=== PATIENT | male | born 1940 | race Caucasian/White ===

== ENCOUNTER 2016-07-17 20:35 | Inpatient (IN) | payer MEDICARE, OTHER ==
[2016-07-17] MEDS ORDERED: IPRATROPIUM-ALBUTEROL 3 ML NEB INHALATION STA (21:11)
[2016-07-17 21:32] LABS: Basophils % (A) 1 %; CH 30.9; CHCM 33.1; Eosinophils # (A) 0.2 k/uL (0-0.7); Eosinophils % (A) 3 %; HCT 43.9 % (39.0-53.0); HDW 3.04; HGB 14.3 gm/dL (13.0-17.5); Luc # (Auto) 0.23; Luc % (Auto) 3; Lymphocytes # (A) 1.4 k/uL (1.0-4.8); Lymphocytes % (A) 18 %; MCH 30.6 pg (25.0-35.0); MCHC 32.6 g/dL (31.0-37.0); MCV 93.9 fL (80.0-100.0); Mean Platelet Volume 8.1; Monocytes # (A) 0.5 k/uL (0-1.0); Monocytes % (A) 6 %; Neutrophils # (A) 5.2 k/uL (1.3-7.7); Neutrophils % (A) 69 %; RBC 4.67 m/uL (4.30-5.90); RDW 13.6 % (11.5-15.5); WBC 7.5 k/uL (3.8-10.6); WBC (Perox) 7.37
--- NOTE | 2016-07-17 21:37 | XR ---
EXAMINATION TYPE: XR chest 2V DATE OF EXAM: 07/17/2016 9:31 PM COMPARISON: 05/08/2016 HISTORY: Short of breath TECHNIQUE: Frontal and lateral views of the chest are obtained. FINDINGS: There is no heart failure nor confluent pneumonic infiltrate. There are no hilar masses. C ostophrenic angles are clear. Bony thorax is intact. IMPRESSION: No active cardiopulmonary disease. Borderline cardiomegaly. No change.
[2016-07-17 21:42] LABS: INR 1.1 (<1.1); Partial Thromboplastin Time 24.3 sec (22.0-30.0); Prothrombin Time 10.8 sec (9.0-12.0)
[2016-07-17 21:46] LABS: ALT 20 U/L (21-72); AST 16 U/L (17-59); Alkaline Phosphatase 66 U/L (38-126); Anion Gap 8 mmol/L; Blood Urea Nitrogen 15 mg/dL (9-20); Calcium 9.3 mg/dL (8.4-10.2); Carbon Dioxide 30 mmol/L (22-30); Chloride 106 mmol/L (98-107); Glucose 96 mg/dL (74-99); Magnesium 1.8 mg/dL (1.6-2.3); Non-African American GFR(MDRD) >60 (>60 ml/min/1.73 sqM); Potassium 4.1 mmol/L (3.5-5.1); Sodium 144 mmol/L (137-145); Total Bilirubin 0.5 mg/dL (0.2-1.3); Total Protein 6.7 g/dL (6.3-8.2)
[2016-07-17] MEDS ORDERED: ACETAMINOPHEN IV (For NPO) 1,000 MG in EMPTY BAG 1 BAG IVPB STA (21:52)
[2016-07-17] MEDS ORDERED: MORPHINE SULFATE 4 MG/ML SYRINGE IVP STA (21:52)
[2016-07-17] MEDS ORDERED: DILTIAZEM 5 MG/ML 5 ML VIAL IVP STA (21:52)
[2016-07-17 21:58] LABS: Creatine Kinase 38 U/L (55-170)
[2016-07-17 22:11] LABS: Creatine Kinase MB 0.9 ng/mL (0.0-2.4); Troponin I <0.012 ng/mL (0.000-0.034)
[2016-07-17] MEDS ORDERED: methylPREDNISolone SOD SUCCI 125 MG/2 ML VIAL IV STA (22:17)
[2016-07-17] MEDS ORDERED: SODIUM CHLORIDE 0.9% 1,000 ML IV STA (22:17)
[2016-07-17] MEDS ORDERED: SODIUM CHLORIDE 0.9% 500 ML IV STA (22:17)
--- NOTE | 2016-07-17 22:23 | ED ---
General Adult HPI - General Chief complaint: Shortness of Breath Stated complaint: elaina, abd pain Time Seen by Provider: 07/17/16 21:10 Source: patient, EMS, RN notes reviewed, old records reviewed Mode of arrival: EMS Limitations: no limitations - History of Present Illness Initial comments: This is a 76-year-old male ER for evaluation of shortness of breath. Patient presents with shortness of breath mainly exertional shortness of breath cough and congestion. Patient has history of COPD CHF, diabetes high blood pressure and high cholesterol. Patient states since getting worse for the last day or so , taken really give much out of bed to do any activities as he became including increasing shortness breath. Patient denies fever does admit increased cough and congestion. Patient denies any specific chest pain. No sick contacts no recent travel history. - Related Data Home Medications Medication Instructions Recorded Confirmed Aspirin 325 mg PO DAILY 01/15/14 01/16/16 Budesonide-Formot 160-4.5 Mcg 2 puff INHALATION BID 01/15/14 01/16/16 [Symbicort 160-4.5 Mcg Inhaler] Cholecalciferol [Vitamin D3] 5,000 unit PO DAILY 01/15/14 01/20/16 Isosorbide Mononitrate [Imdur] 60 mg PO DAILY 01/15/14 01/16/16 ALPRAZolam [Xanax] 0.5 mg PO BID 01/16/16 01/16/16 Acetaminophen [Tylenol Arthritis] 650 mg PO Q8HR 01/16/16 01/20/16 Levothyroxine Sodium [Synthroid] 50 mcg PO DAILY 01/16/16 01/16/16 Losartan/Hydrochlorothiazide 1 each PO DAILY 01/16/16 01/16/16 [Hyzaar 100-25 Tablet] NIFEdipine [Adalat cc] 30 mg PO 199901/16/16 01/16/16 Sennosides [Senna] 8.6 mg PO HS 01/16/16 01/16/16 Sertraline [Zoloft] 50 mg PO HS 01/16/16 01/16/16 Tiotropium Panacea [Spiriva] 1 cap INHALATION DAILY 01/16/16 01/20/16 Previous Rx's Medication Instructions Recorded HYDROcodone/APAP 7.5-325MG [Evans 1 each PO Q4H PRN #60 tab 01/20/16 7.5] Amoxicillin 500 mg PO Q8H #30 capsule 04/24/16 Loratadine [Claritin] 10 mg PO DAILY #15 tab 04/24/16 Levofloxacin [Levaquin] 750 mg PO DAILY #10 tab 05/08/16 predniSONE 40 mg PO DAILY #8 tab 05/08/16 Allergies Allergy/AdvReac Type Severity Reaction Status Date / Time No Known Allergies Allergy Verified 01/20/16 10:08 Review of Systems ROS Statement: Those systems with pertinent positive or pertinent negative responses have been documented in the HPI. ROS Other: All systems not noted in ROS Statement are negative. Past Medical History Past Medical History: Asthma, COPD, Dementia, Diabetes Mellitus, GERD/Reflux, Hyperlipidemia, Hypertension Additional Past Medical History / Comment(s): previous oral rx for diabetes- none currently History of Any Multi-Drug Resistant Organisms: None Reported Past Surgical History: No Surgical Hx Reported Additional Past Anesthesia/Blood Transfusion Reaction / Comment(s): no hx at [place] Past Psychological History: Anxiety, Depression Smoking Status: Former smoker Past Alcohol Use History: None Reported Past Drug Use History: None Reported - Past Family History Mother Family Medical History: Unable to Obtain General Exam Limitations: no limitations General appearance: alert, in no apparent distress Head exam: Present: atraumatic, normocephalic, normal inspection Eye exam: Present: normal appearance, PERRL, EOMI. Absent: scleral icterus, conjunctival injection, periorbital swelling ENT exam: Present: normal exam, mucous membranes moist Neck exam: Present: normal inspection. Absent: tenderness, meningismus, lymphadenopathy Respiratory exam: Present: normal lung sounds bilaterally, wheezes, decreased breath sounds, prolonged expiratory. Absent: respiratory distress, rales, rhonchi, stridor Cardiovascular Exam: Present: regular rate, normal rhythm, normal heart sounds. Absent: systolic murmur, diastolic murmur, rubs, gallop, clicks GI/Abdominal exam: Present: soft, normal bowel sounds. Absent: distended, tenderness, guarding, rebound, rigid Extremities exam: Present: normal inspection, full ROM, normal capillary refill. Absent: tenderness, pedal edema, joint swelling, calf tenderness Back exam: Present: normal inspection Neurological exam: Present: alert, oriented X3, CN II-XII intact Psychiatric exam: Present: normal affect, normal mood Skin exam: Present: warm, dry, intact, normal color. Absent: rash Course Vital Signs 07/17/16 07/17/16 07/17/16 20:39 22:25 22:30 Temperature 98.2 F Pulse Rate 58 L 58 L 67 Respiratory 22 20 Rate Blood Pressure 199/89 163/74 O2 Sat by Pulse 96 95 Oximetry 07/17/16 07/17/16 22:38 23:32 Temperature Pulse Rate 62 63 Respiratory 20 Rate Blood Pressure 154/86 O2 Sat by Pulse 94 L Oximetry - Reevaluation(s) Reevaluation #1: 07/17/16 22:22 Patient with mild improvement after prolonged breathing treatment EKG Findings - EKG Comments: EKG Findings:: EKG shows sinus bradycardia rate 57, IN 190, QRS 92, QTC 439 Medical Decision Making - Medical Decision Making 76 male to ER for evaluation of shortness of breath exertional dyspnea. No findings of CHF on x-ray patient will be admitted for COPD exacerbation, prominent wheezing and no improvement with initial breathing treatment. Patient denies chest pain, no fevers, x-ray is normal - Lab Data Result diagrams: 07/17/16 20:51 07/17/16 20:51 Lab Results 07/17/16 07/17/16 07/17/16 Range/Units 20:51 20:51 20:51 WBC 7.5 (3.8-10.6) k/uL RBC 4.67 (4.30-5.90) m/uL Hgb 14.3 (13.0-17.5) gm/dL Hct 43.9 (39.0-53.0) % MCV 93.9 (80.0-100.0) fL MCH 30.6 (25.0-35.0) pg MCHC 32.6 (31.0-37.0) g/dL RDW 13.6 (11.5-15.5) % Plt Count 266 (150-450) k/uL Neutrophils % 69 % Lymphocytes % 18 % Monocytes % 6 % Eosinophils % 3 % Basophils % 1 % Neutrophils # 5.2 (1.3-7.7) k/uL Lymphocytes # 1.4 (1.0-4.8) k/uL Monocytes # 0.5 (0-1.0) k/uL Eosinophils # 0.2 (0-0.7) k/uL Basophils # 0.0 (0-0.2) k/uL PT (9.0-12.0) sec INR (<1.1) APTT (22.0-30.0) sec Sodium 144 (137-145) mmol/L Potassium 4.1 (3.5-5.1) mmol/L Chloride 106 (98-107) mmol/L Carbon Dioxide 30 (22-30) mmol/L Anion Gap 8 mmol/L BUN 15 (9-20) mg/dL Creatinine 1.10 (0.66-1.25) mg/dL Est GFR (MDRD) Af Amer >60 (>60 ml/min/1.73 sqM) Est GFR (MDRD) Non-Af >60 (>60 ml/min/1.73 sqM) Glucose 96 (74-99) mg/dL Calcium 9.3 (8.4-10.2) mg/dL Magnesium 1.8 (1.6-2.3) mg/dL Total Bilirubin 0.5 (0.2-1.3) mg/dL AST 16 L (17-59) U/L ALT 20 L (21-72) U/L Alkaline Phosphatase 66 (38-126) U/L Total Creatine Kinase 38 L (55-170) U/L CK-MB (CK-2) 0.9 (0.0-2.4) ng/mL CK-MB (CK-2) Rel Index 2.4 Troponin I <0.012 (0.000-0.034) ng/mL NT-Pro-B Natriuret Pep pg/mL Total Protein 6.7 (6.3-8.2) g/dL Albumin 3.9 (3.5-5.0) g/dL 07/17/16 07/17/16 Range/Units 20:51 20:51 WBC (3.8-10.6) k/uL RBC (4.30-5.90) m/uL Hgb (13.0-17.5) gm/dL Hct (39.0-53.0) % MCV (80.0-100.0) fL MCH (25.0-35.0) pg MCHC (31.0-37.0) g/dL RDW (11.5-15.5) % Plt Count (150-450) k/uL Neutrophils % % Lymphocytes % % Monocytes % % Eosinophils % % Basophils % % Neutrophils # (1.3-7.7) k/uL Lymphocytes # (1.0-4.8) k/uL Monocytes # (0-1.0) k/uL Eosinophils # (0-0.7) k/uL Basophils # (0-0.2) k/uL PT 10.8 (9.0-12.0) sec INR 1.1 (<1.1) APTT 24.3 (22.0-30.0) sec Sodium (137-145) mmol/L Potassium (3.5-5.1) mmol/L Chloride (98-107) mmol/L Carbon Dioxide (22-30) mmol/L Anion Gap mmol/L BUN (9-20) mg/dL Creatinine (0.66-1.25) mg/dL Est GFR (MDRD) Af Amer (>60 ml/min/1.73 sqM) Est GFR (MDRD) Non-Af (>60 ml/min/1.73 sqM) Glucose (74-99) mg/dL Calcium (8.4-10.2) mg/dL Magnesium (1.6-2.3) mg/dL Total Bilirubin (0.2-1.3) mg/dL AST (17-59) U/L ALT (21-72) U/L Alkaline Phosphatase (38-126) U/L Total Creatine Kinase (55-170) U/L CK-MB (CK-2) (0.0-2.4) ng/mL CK-MB (CK-2) Rel Index Troponin I (0.000-0.034) ng/mL NT-Pro-B Natriuret Pep 512 pg/mL Total Protein (6.3-8.2) g/dL Albumin (3.5-5.0) g/dL - Radiology Data Radiology results: report reviewed (Chest x-ray is negative for acute disease), image reviewed Disposition Clinical Impression: Acute exacerbation of chronic obstructive airways disease Disposition: ADMITTED IP TO THIS [facility] Condition: Fair Instructions: Acute Bronchitis (ED), Chronic Bronchitis (ED) Referrals: None,Stated [Primary Care Provider] - 1-2 days
[2016-07-18 01:28] VITALS: BMI 33.6
[2016-07-18] MEDS: SODIUM CHLORIDE 0.9% 1,000 ML IV SCH ×3 (03:15→23:21)
[2016-07-18] MEDS: methylPREDNISolone SOD SUCCI 125 MG/2 ML VIAL IV SCH ×3 (06:24→18:46)
[2016-07-18 06:53] LABS: Glucose,Whole Blood 137 mg/dL (75-99)
[2016-07-18] MEDS: IPRATROPIUM-ALBUTEROL 3 ML NEB INHALATION SCH ×4 (07:20→19:49)
[2016-07-18] MEDS: INSULIN LISPRO (humaLOG) 300 UNIT/3 ML VIAL SQ SCH ×4 (08:30→22:15)
[2016-07-18] MEDS: ENOXAPARIN 40 MG/0.4 ML SYRINGE SQ SCH (08:31)
[2016-07-18 11:17] LABS: Glucose,Whole Blood 255 mg/dL (75-99)
[2016-07-18 11:54] LABS: Glucose,Whole Blood 204 mg/dL (75-99)
[2016-07-18] MEDS ORDERED: IPRATROPIUM-ALBUTEROL 3 ML NEB INHALATION PRN (12:52)
[2016-07-18] MEDS ORDERED: KETOROLAC 0.5% OPHTH DROPS 3 ML BTL BOTH EYES PRN (12:52)
[2016-07-18] MEDS: cloNIDine HCL 0.1 MG TAB PO SCH ×2 (14:17→22:12)
[2016-07-18] MEDS: ATENOLOL 50 MG TAB PO SCH (14:18)
[2016-07-18 14:44] LABS: Hemoglobin A1C 5.8 % (4.2-6.1)
[2016-07-18 17:08] LABS: Glucose,Whole Blood 121 mg/dL (75-99)
[2016-07-18] MEDS: ACETAMINOPHEN TAB 325 MG TAB PO SCH (18:46)
[2016-07-18] MEDS: NYSTATIN 100,000 UNIT/ML SUSP 500,000 UNIT/5 ML CUP PO SCH ×2 (18:46→22:13)
[2016-07-18] MEDS: SYMBICORT 80-4.5 MCG INHALER INHALATION SCH (19:49)
[2016-07-18 20:59] LABS: Glucose,Whole Blood 194 mg/dL (75-99)
[2016-07-18] MEDS ORDERED: ATENOLOL 50 MG TAB PO SCH (21:00)
[2016-07-18] MEDS: SERTRALINE 100 MG TAB PO SCH (22:12)
[2016-07-18] MEDS: SENNOSIDES-DOCUSATE SODIUM 1 EACH TAB PO SCH (22:12)
[2016-07-18] MEDS: ISOSORBIDE MONONITRATE ER 60 MG TAB.ER.24H PO SCH (22:12)
[2016-07-18] MEDS: LISINOPRIL 20 MG TAB PO SCH (22:12)
[2016-07-18] MEDS: ALPRAZolam 0.5 MG TAB PO SCH (22:12)
[2016-07-18] MEDS: LORATADINE 10 MG TAB PO SCH (22:13)
[2016-07-18] MEDS: amLODIPine 5 MG TAB PO SCH (22:13)
--- NOTE | 2016-07-18 23:31 | HP ---
DATE OF ADMISSION: 07/18/2016 CHIEF COMPLAINT: Difficulty breathing. HISTORY OF PRESENT ILLNESS: This is another admission for this 76-year-old white male. He came to the emergency room because he been having more and more difficulty breathing and it was felt that he was in congestive heart failure. REVIEW OF SYSTEMS: He has had no fever, chills, hemoptysis, chest pain, etc. He has had no known heart disease. Past medical history, family history, and personal and social histories reveal he is not allergic to any medication
--- NOTE | 2016-07-18 23:33 | HP ---
DATE OF ADMISSION: 07/18/2016 ADDENDUM: Review of systems: ( ). Past medical history, family history, and personal and social history reveals he is not allergic to any medication. He has had no surgery. He takes: 1. Xanax. 2. Norvasc. 3. Catapres. 4. Tenormin. 5. ( ). 6. Imdur. 7. Thyroid. 8. Zoloft. He does not smoke. PHYSICAL EXAMINATION: VITAL SIGNS: Blood pressure was 152/88 with a pulse of 70, respirations 29. He is afebrile. GENERAL: Appeared to be well-developed, well-nourished no acute distress. SKIN: Skin color is normal. Skin: The skin is warm and dry. Lymph nodes are not enlarged. Head, ears, eyes, nose, mouth, and throat were normal. NECK: Neck veins not distended. Thyroid is not enlarged. Chest is clear. Cardiac exam is normal. Abdomen soft, nontender. EXTREMITIES: Normal. NEUROLOGIC: Intact. He was admitted to the hospital with diagnoses: 1. Shortness of breath. 2. Congestive heart failure. PLAN: 1. Bedrest. 2. IV fluids. 3. Diuresis. 4. Echocardiogram.
[2016-07-19] MEDS: methylPREDNISolone SOD SUCCI 125 MG/2 ML VIAL IV SCH ×4 (02:01→17:15)
[2016-07-19] MEDS: ACETAMINOPHEN TAB 325 MG TAB PO SCH ×3 (02:01→16:27)
[2016-07-19] MEDS: SODIUM CHLORIDE 0.9% 1,000 ML IV SCH ×2 (06:20→16:28)
[2016-07-19 07:06] LABS: Glucose,Whole Blood 121 mg/dL (75-99)
[2016-07-19] MEDS: IPRATROPIUM-ALBUTEROL 3 ML NEB INHALATION SCH ×4 (07:09→19:26)
[2016-07-19] MEDS: SYMBICORT 80-4.5 MCG INHALER INHALATION SCH ×2 (07:10→19:26)
[2016-07-19] MEDS: INSULIN LISPRO (humaLOG) 300 UNIT/3 ML VIAL SQ SCH ×4 (07:57→21:05)
[2016-07-19] MEDS: LEVOTHYROXINE 50 MCG TAB PO SCH (08:07)
[2016-07-19] MEDS: ASPIRIN 325 MG TAB PO SCH (08:07)
[2016-07-19] MEDS: CHLORTHALIDONE 25 MG TAB PO SCH (08:08)
[2016-07-19] MEDS: NYSTATIN 100,000 UNIT/ML SUSP 500,000 UNIT/5 ML CUP PO SCH ×4 (08:08→21:11)
[2016-07-19] MEDS: cloNIDine HCL 0.1 MG TAB PO SCH ×2 (08:08→21:08)
[2016-07-19] MEDS: ENOXAPARIN 40 MG/0.4 ML SYRINGE SQ SCH (08:08)
[2016-07-19] MEDS: ATENOLOL 50 MG TAB PO SCH (10:13)
[2016-07-19] MEDS: ALPRAZolam 0.5 MG TAB PO SCH ×2 (10:21→21:11)
[2016-07-19] MEDS: CHOLECALCIFEROL 1,000 UNIT TAB PO SCH (11:16)
[2016-07-19 12:13] LABS: Glucose,Whole Blood 160 mg/dL (75-99)
[2016-07-19 16:51] LABS: Glucose,Whole Blood 115 mg/dL (75-99)
--- NOTE | 2016-07-19 18:49 | PN ---
CHIEF COMPLAINT: Shortness of breath and COPD. HISTORY OF PRESENT ILLNESS: This gentleman is doing better. He has had no fever, chills, etc. PHYSICAL EXAMINATION: Chest is improved. There are many fewer rales and rhonchi. CARDIAC: Normal. ABDOMEN: Soft and nontender. IMPRESSION: Exacerbation of chronic obstructive pulmonary disease. PLAN: Probably back to [facility] today without any medication changes. This will be arranged by the nurse practitioner.
[2016-07-19 20:47] LABS: Glucose,Whole Blood 115 mg/dL (75-99)
[2016-07-19] MEDS: LISINOPRIL 20 MG TAB PO SCH (21:08)
[2016-07-19] MEDS: amLODIPine 5 MG TAB PO SCH (21:08)
[2016-07-19] MEDS: ISOSORBIDE MONONITRATE ER 60 MG TAB.ER.24H PO SCH (21:08)
[2016-07-19] MEDS: LORATADINE 10 MG TAB PO SCH (21:08)
[2016-07-19] MEDS: SERTRALINE 100 MG TAB PO SCH (21:08)
[2016-07-19] MEDS: SENNOSIDES-DOCUSATE SODIUM 1 EACH TAB PO SCH (21:09)
[2016-07-20] MEDS: methylPREDNISolone SOD SUCCI 125 MG/2 ML VIAL IV SCH ×2 (00:40→05:30)
[2016-07-20] MEDS: ACETAMINOPHEN TAB 325 MG TAB PO SCH ×2 (00:41→08:47)
[2016-07-20] MEDS: SODIUM CHLORIDE 0.9% 1,000 ML IV SCH ×2 (00:41→12:45)
[2016-07-20] MEDS: LEVOTHYROXINE 50 MCG TAB PO SCH (05:49)
[2016-07-20 06:55] LABS: Glucose,Whole Blood 124 mg/dL (75-99)
[2016-07-20] MEDS: IPRATROPIUM-ALBUTEROL 3 ML NEB INHALATION SCH ×2 (08:30→11:11)
[2016-07-20] MEDS: SYMBICORT 80-4.5 MCG INHALER INHALATION SCH (08:30)
[2016-07-20] MEDS: INSULIN LISPRO (humaLOG) 300 UNIT/3 ML VIAL SQ SCH ×2 (08:47→12:48)
[2016-07-20] MEDS: NYSTATIN 100,000 UNIT/ML SUSP 500,000 UNIT/5 ML CUP PO SCH ×2 (08:47→12:47)
[2016-07-20] MEDS: ATENOLOL 50 MG TAB PO SCH (08:48)
[2016-07-20] MEDS: ENOXAPARIN 40 MG/0.4 ML SYRINGE SQ SCH (08:48)
[2016-07-20] MEDS: CHLORTHALIDONE 25 MG TAB PO SCH (08:48)
[2016-07-20] MEDS: ALPRAZolam 0.5 MG TAB PO SCH (08:48)
[2016-07-20] MEDS: cloNIDine HCL 0.1 MG TAB PO SCH (08:48)
[2016-07-20] MEDS: ASPIRIN 325 MG TAB PO SCH (08:49)
[2016-07-20] MEDS ORDERED: predniSONE 20 MG TAB PO SCH (09:00)
[2016-07-20] MEDS: CHOLECALCIFEROL 1,000 UNIT TAB PO SCH (12:47)
--- NOTE | 2016-07-20 13:16 | P.DS ---
Providers Date of admission: 07/18/16 11:11 Expected date of discharge: 07/20/16 Attending physician: Bert Go Primary care physician: Stated None Hospital Course: 76-year-old presented on the day of admission to the emergency room to be evaluated for a chief complaint of developing shortness of breath. Patient lives status assisted-living [place] [facility] facility. Patient was admitted to the services of the attending and treated for acute exacerbation of COPD chest x-ray in emergency room was negative for acute disease patient was afebrile blood pressure was noted to be elevated in the emergency room 199/89 patient was started on his home meds blood pressure was monitored there was a noted improvement patient felt that his breathing was back to baseline appropriate to be discharged patient was afebrile throughout the hospitalization with no white count Impression discharge diagnosis Present on admission shortness of breath due to an acute exacerbation of COPD Present on admission hypertension urgency Hyperlipidemia The above dictated assessment and findings were discussed with dr go Impression and the plan of care have been dictated as directed. Miya Stacy nurse practitioner acting as a scribe for dr go Patient Condition at Discharge: Fair Plan - Discharge Summary New Discharge Prescriptions: methylPREDNISolone Dose Pack [Medrol Dose Pack] 4 mg PO DIRECTED #21 package Discharge Medication List Acetaminophen [Tylenol Arthritis] 650 mg PO Q8HR 01/16/16 [History] Levothyroxine Sodium [Synthroid] 50 mcg PO DAILY 01/16/16 [History] ALPRAZolam [Xanax] 0.5 mg PO BID@0800,2000 07/18/16 [History] Aspirin EC [Ecotrin] 325 mg PO DAILY 07/18/16 [History] Atenolol [Tenormin] 50 mg PO BID 07/18/16 [History] Atenolol/Chlorthalidone [Tenoretic 50 Tablet] 25 mg PO DAILY 07/18/16 [History] Cetirizine HCl [Zyrtec] 10 mg PO HS 07/18/16 [History] Cholecalciferol [Vitamin D3] 5,000 unit PO DAILY 07/18/16 [History] Fluticasone/Salmeterol [Advair 250-50 Diskus] 1 puff INHALATION RT-BID 07/18/16 [History] Ipratropium-Albuterol Nebulize [Duoneb 0.5 mg-3 mg/3 ml Soln] 3 ml INHALATION RT -Q4H PRN 07/18/16 [History] Isosorbide Mononitrate ER [Imdur] 60 mg PO HS 07/18/16 [History] Ketorolac 0.5% Ophth Soln [Acular 0.5%] 1 drops BOTH EYES Q6H PRN 07/18/16 [ History] Sennosides-Docusate Sodium [Senokot-S] 1 tab PO HS 07/18/16 [History] Sertraline [Zoloft] 100 mg PO HS 07/18/16 [History] amLODIPine BESYLATE/BENAZEPRIL [Lotrel 5-20 mg Capsule] 1 cap PO HS 07/18/16 [ History] cloNIDine HCL [Catapres] 0.1 mg PO BID 07/18/16 [History] methylPREDNISolone Dose Pack [Medrol Dose Pack] 4 mg PO DIRECTED #21 package 07/20/16 [Rx] Follow up Appointment(s)/Referral(s): [facility], [NON-STAFF] - 1 Week None,Stated [Primary Care Provider] - 1-2 days Bert Go MD [STAFF PHYSICIAN] - 07/22/16 Patient Instructions/Handouts: Acute Bronchitis (ED), Chronic Bronchitis (ED) Discharge Disposition: HOME WITH HOME HEALTH SERVICES
[2016-07-20 15:17] VITALS: BP 180/84; PULSE 69; RESP 17; TEMP 97.6
--- NOTE | 2016-07-20 22:28 | PN ---
DATE OF SERVICE: 07/20/2016 CHIEF COMPLAINT: Difficulty breathing. HISTORY OF PRESENT ILLNESS: This gentleman is doing well and his breathing is excellent. It was thought that he might be able go home today, but he will be going back to [place] home later. PHYSICAL EXAMINATION: CHEST: Clear. CARDIAC: Normal. ABDOMEN: Soft, nontender. IMPRESSION: Exacerbation of chronic obstructive pulmonary disease. PLAN: Discharge back to [place] today, and this will be arranged by the nurse practitioner.
== END 2016-07-20 15:45 | disposition home health service (06) | DRG 192 ==
LOC: EC 20:35 → 3SUR 23:59 → OBSVTOIN 07-18 11:11 → 3SUR 07-18 19:39
PROVIDERS: ADMIT Family Medicine; ATTEND Family Medicine
DX: J44.1 Chronic obstructive pulmonary disease with (acute) exacerbation (principal); I11.0 Hypertensive heart disease with heart failure; I50.9 Heart failure, unspecified; F03.90 Unspecified dementia, unspecified severity, without behavioral disturbance, psychotic disturbance, mood disturbance, and anxiety; E11.9 Type 2 diabetes mellitus without complications; E78.5 Hyperlipidemia, unspecified; I16.0 Hypertensive urgency; E78.00 Pure hypercholesterolemia, unspecified; K21.9 Gastro-esophageal reflux disease without esophagitis; F32.9 Major depressive disorder, single episode, unspecified; F41.9 Anxiety disorder, unspecified; J45.909 Unspecified asthma, uncomplicated; Z79.82 Long term (current) use of aspirin; Z87.891 Personal history of nicotine dependence; Z79.899 Other long term (current) drug therapy; Z79.51 Long term (current) use of inhaled steroids
CPT/HCPCS: 36415; 71020; 80053; 82550; 82553; 83036; 83735; 83880; 84484; 85025; 85610; 85730; 93005; 94640; 96361; 96372; 96374; 96376; 99285

== ENCOUNTER 2016-09-04 21:04 | Emergency (ER) | payer MEDICARE, OTHER ==
[2016-09-04 21:14] VITALS: BP 204/97; PULSE 90; RESP 20; TEMP 98.8
--- NOTE | 2016-09-04 21:33 | ED ---
Skin/Abscess/FB HPI - General Chief complaint: Skin/Abscess/Foreign Body Stated complaint: Rash /Flank area Time Seen by Provider: 09/04/16 21:21 Source: patient Mode of arrival: ambulatory Limitations: no limitations - History of Present Illness Initial comments: This patient is a 76-year-old man who presents to be evaluated for a rash that is been going on for he believes 3 possibly 4 weeks. It is located to the left side of his thorax. Patient states that he initially thought that he had fallen and possibly injured his side. He noted that the rash then crept up. The rash is burning, moderate intensity. He has not noted any relieving factors. It is worse if he presses on it. He denies any associated symptoms. MD complaint: rash Onset/Timin -: week(s) Tetanus Up to Date: yes Location: chest, back Severity: moderate Quality: burning Consistency: constant Improves with: none Worsens with: palpation Context: none Associated symptoms: denies other symptoms Treatments Prior to Arrival: none - Related Data Home Medications Medication Instructions Recorded Confirmed Acetaminophen [Tylenol Arthritis] 650 mg PO Q8HR 01/16/16 09/04/16 Levothyroxine Sodium [Synthroid] 50 mcg PO DAILY 01/16/16 09/04/16 ALPRAZolam [Xanax] 0.5 mg PO BID@0800,2000 07/18/16 09/04/16 Aspirin EC [Ecotrin] 325 mg PO DAILY 07/18/16 09/04/16 Atenolol [Tenormin] 50 mg PO BID 07/18/16 09/04/16 Atenolol/Chlorthalidone [Tenoretic 25 mg PO DAILY 07/18/16 09/04/16 50 Tablet] Cetirizine HCl [Zyrtec] 10 mg PO HS 07/18/16 09/04/16 Cholecalciferol [Vitamin D3] 5,000 unit PO DAILY 07/18/16 09/04/16 Fluticasone/Salmeterol [Advair 1 puff INHALATION RT-BID 07/18/16 09/04/16 250-50 Diskus] Ipratropium-Albuterol Nebulize 3 ml INHALATION RT-Q4H PRN 07/18/16 09/04/16 [Duoneb 0.5 mg-3 mg/3 ml Soln] Isosorbide Mononitrate ER [Imdur] 60 mg PO HS 07/18/16 09/04/16 Ketorolac 0.5% Ophth Soln [Acular 1 drops BOTH EYES Q6H PRN 07/18/16 09/04/16 0.5%] Sennosides-Docusate Sodium 1 tab PO HS 07/18/16 09/04/16 [Senokot-S] Sertraline [Zoloft] 100 mg PO HS 07/18/16 09/04/16 amLODIPine BESYLATE/BENAZEPRIL 1 cap PO HS 07/18/16 09/04/16 [Lotrel 5-20 mg Capsule] cloNIDine HCL [Catapres] 0.1 mg PO BID 07/18/16 09/04/16 Previous Rx's Medication Instructions Recorded Acetaminophen-Codeine 300-30mg 1 tab PO Q4H PRN #20 tablet 09/04/16 [Tylenol w/codeine #3] valACYclovir HCL [Valtrex] 1,000 mg PO TID #21 tablet 09/04/16 Allergies Allergy/AdvReac Type Severity Reaction Status Date / Time No Known Allergies Allergy Verified 09/04/16 21:14 Review of Systems ROS Statement: Those systems with pertinent positive or pertinent negative responses have been documented in the HPI. ROS Other: All systems not noted in ROS Statement are negative. Constitutional: Denies: fever, chills Respiratory: Denies: cough, dyspnea Cardiovascular: Denies: chest pain, edema Gastrointestinal: Denies: abdominal pain, vomiting Musculoskeletal: Reports: as per HPI, back pain Skin: Reports: as per HPI, rash Neurological: Denies: headache, weakness, numbness Past Medical History Past Medical History: Asthma, COPD, Dementia, Diabetes Mellitus, GERD/Reflux, Hyperlipidemia, Hypertension Additional Past Medical History / Comment(s): previous oral rx for diabetes- none currently History of Any Multi-Drug Resistant Organisms: None Reported Past Surgical History: No Surgical Hx Reported Additional Past Anesthesia/Blood Transfusion Reaction / Comment(s): no hx at [place] Past Psychological History: Anxiety, Depression Smoking Status: Former smoker Past Alcohol Use History: None Reported Past Drug Use History: None Reported - Past Family History Mother Family Medical History: Unable to Obtain General Exam Limitations: no limitations General appearance: alert, in no apparent distress Head exam: Present: atraumatic, normocephalic Eye exam: Present: normal appearance Respiratory exam: Present: normal lung sounds bilaterally. Absent: respiratory distress, wheezes, rales, rhonchi, stridor Cardiovascular Exam: Present: regular rate, normal rhythm, normal heart sounds. Absent: systolic murmur, diastolic murmur, rubs, gallop GI/Abdominal exam: Present: soft. Absent: distended, tenderness, guarding, rebound Skin exam: Present: warm, dry, intact, normal color, vesicles (Patient has a band like distribution of erythematous vesicles along the left thorax, more or less along the T6 dermatome, that is classic for herpes zoster. No evidence of superinfection.) Course Vital Signs 09/04/16 21:12 Temperature 98.8 F Pulse Rate 90 Respiratory 20 Rate Blood Pressure 204/97 O2 Sat by Pulse 98 Oximetry Medical Decision Making - Medical Decision Making Discussed appropriate follow-up and further care as well as return parameters. Disposition Clinical Impression: Herpes zoster Disposition: HOME SELF-CARE Condition: Good Instructions: Shingles (ED) Prescriptions: Acetaminophen-Codeine 300-30mg [Tylenol w/codeine #3] 1 tab PO Q4H PRN #20 tablet PRN Reason: Pain valACYclovir HCL [Valtrex] 1,000 mg PO TID #21 tablet Referrals: Edward Minor MD [Primary Care Provider] - 1-2 days
[2016-09-04] MEDS ORDERED: valACYclovir 500 MG TAB PO STA (21:40)
[2016-09-04] MEDS ORDERED: valACYclovir HCL 1,000 MG TABLET PO STA (21:44)
== END 2016-09-04 22:05 | disposition home or self-care (01) ==
LOC: EC 21:04
DX: B02.9 Zoster without complications (principal); I10 Essential (primary) hypertension; J45.909 Unspecified asthma, uncomplicated; J44.9 Chronic obstructive pulmonary disease, unspecified; F41.9 Anxiety disorder, unspecified; F32.9 Major depressive disorder, single episode, unspecified; Z87.891 Personal history of nicotine dependence; Z79.51 Long term (current) use of inhaled steroids; Z79.82 Long term (current) use of aspirin; Z79.899 Other long term (current) drug therapy
CPT/HCPCS: 99282

== ENCOUNTER 2016-11-26 22:50 | Emergency (ER) | payer MEDICARE, OTHER ==
[2016-11-26 23:13] VITALS: RESP 16
[2016-11-26 23:54] LABS: Basophils # (A) 0.1 k/uL (0-0.2); Basophils % (A) 1 %; CH 31.8; Eosinophils # (A) 0.3 k/uL (0-0.7); Eosinophils % (A) 4 %; HCT 42.7 % (39.0-53.0); HDW 2.84; HGB 14.9 gm/dL (13.0-17.5); Luc # (Auto) 0.23; Luc % (Auto) 3; Lymphocytes # (A) 1.7 k/uL (1.0-4.8); Lymphocytes % (A) 22 %; MCH 32.9 pg (25.0-35.0); Mean Platelet Volume 7.9; Monocytes # (A) 0.7 k/uL (0-1.0); Monocytes % (A) 9 %; Neutrophils # (A) 4.9 k/uL (1.3-7.7); Neutrophils % (A) 62 %; RBC 4.54 m/uL (4.30-5.90); RDW 14.6 % (11.5-15.5); WBC 7.8 k/uL (3.8-10.6); WBC (Perox) 7.46
[2016-11-27 00:02] LABS: ALT 21 U/L (21-72); AST 18 U/L (17-59); Alkaline Phosphatase 71 U/L (38-126); Amylase 32 U/L (30-110); Anion Gap 7 mmol/L; Blood Urea Nitrogen 21 mg/dL (9-20); Calcium 8.9 mg/dL (8.4-10.2); Carbon Dioxide 27 mmol/L (22-30); Chloride 108 mmol/L (98-107); Glucose 94 mg/dL (74-99); Non-African American GFR(MDRD) >60 (>60 ml/min/1.73 sqM); Potassium 3.9 mmol/L (3.5-5.1); Sodium 142 mmol/L (137-145); Total Bilirubin 0.4 mg/dL (0.2-1.3); Total Protein 6.1 g/dL (6.3-8.2)
--- NOTE | 2016-11-27 00:53 | ED ---
General Adult HPI - General Chief complaint: Skin/Abscess/Foreign Body Stated complaint: Poss Shingles Time Seen by Provider: 11/26/16 23:03 Source: patient, EMS, RN notes reviewed Mode of arrival: EMS Limitations: no limitations - History of Present Illness Initial comments: 76-year-old male presents to the emergency Department chief complaint of left- sided abdominal pain. Patient states that he she knows about a month ago. Patient states he is now developing some abdominal pain. Patient states around the site that he had a surgical procedure in the past. Patient states that he was concerned due to his pain and discomfort so he thought that he should be evaluated. Patient denies any nausea vomiting changes in eating or drinking. Patient states that it just seems irritated so he was concerned. Patient denies any recent fever, chills, shortness of breath, chest pain, back pain, nausea vomiting, numbness or tingling, dysuria or hematuria, constipation or diarrhea, headaches or visual changes, or any other current symptoms. - Related Data Home Medications Medication Instructions Recorded Confirmed Acetaminophen [Tylenol Arthritis] 650 mg PO Q8HR 01/16/16 09/04/16 Levothyroxine Sodium [Synthroid] 50 mcg PO DAILY 01/16/16 09/04/16 ALPRAZolam [Xanax] 0.5 mg PO BID@0800,2000 07/18/16 09/04/16 Aspirin EC [Ecotrin] 325 mg PO DAILY 07/18/16 09/04/16 Atenolol [Tenormin] 50 mg PO BID 07/18/16 09/04/16 Atenolol/Chlorthalidone [Tenoretic 25 mg PO DAILY 07/18/16 09/04/16 50 Tablet] Cetirizine HCl [Zyrtec] 10 mg PO HS 07/18/16 09/04/16 Cholecalciferol [Vitamin D3] 5,000 unit PO DAILY 07/18/16 09/04/16 Fluticasone/Salmeterol [Advair 1 puff INHALATION RT-BID 07/18/16 09/04/16 250-50 Diskus] Ipratropium-Albuterol Nebulize 3 ml INHALATION RT-Q4H PRN 07/18/16 09/04/16 [Duoneb 0.5 mg-3 mg/3 ml Soln] Isosorbide Mononitrate ER [Imdur] 60 mg PO HS 07/18/16 09/04/16 Ketorolac 0.5% Ophth Soln [Acular 1 drops BOTH EYES Q6H PRN 07/18/16 09/04/16 0.5%] Sennosides-Docusate Sodium 1 tab PO HS 07/18/16 09/04/16 [Senokot-S] Sertraline [Zoloft] 100 mg PO HS 07/18/16 09/04/16 amLODIPine BESYLATE/BENAZEPRIL 1 cap PO HS 07/18/16 09/04/16 [Lotrel 5-20 mg Capsule] cloNIDine HCL [Catapres] 0.1 mg PO BID 07/18/16 09/04/16 Previous Rx's Medication Instructions Recorded Acetaminophen-Codeine 300-30mg 1 tab PO Q4H PRN #20 tablet 09/04/16 [Tylenol w/codeine #3] valACYclovir HCL [Valtrex] 1,000 mg PO TID #21 tablet 09/04/16 Allergies Allergy/AdvReac Type Severity Reaction Status Date / Time No Known Allergies Allergy Verified 11/26/16 23:08 Review of Systems ROS Statement: Those systems with pertinent positive or pertinent negative responses have been documented in the HPI. ROS Other: All systems not noted in ROS Statement are negative. Past Medical History Past Medical History: Asthma, COPD, Dementia, Diabetes Mellitus, GERD/Reflux, Hyperlipidemia, Hypertension Additional Past Medical History / Comment(s): previous oral rx for diabetes- none currently History of Any Multi-Drug Resistant Organisms: None Reported Past Surgical History: No Surgical Hx Reported Additional Past Anesthesia/Blood Transfusion Reaction / Comment(s): no hx at [place] Past Psychological History: Anxiety, Depression Smoking Status: Former smoker Past Alcohol Use History: None Reported Past Drug Use History: None Reported - Past Family History Mother Family Medical History: Unable to Obtain General Exam - General Exam Comments Initial Comments: General: The patient is awake and alert, in no distress, and does not appear acutely ill. Eye: Pupils are equal, round and reactive to light, extra-ocular movements are intact; there is normal conjunctiva bilaterally. No signs of icterus. Ears, nose, mouth and throat: There are moist mucous membranes and no oral lesions. Neck: The neck is supple, there is no tenderness. Cardiovascular: There is a regular rate and rhythm. No murmur, rub or gallop is appreciated. Respiratory: Lungs are clear to auscultation, respirations are non-labored, breath sounds are equal. No wheezes, stridor, rales, or rhonchi. Gastrointestinal: Soft, distended, non-tender abdomen without masses or organomegaly noted. There is no rebound or guarding present. No CVA tenderness. Bowel sounds are unremarkable. Back: There is no tenderness to palpation in the midline. There is no obvious deformity. No rashes noted. Musculoskeletal: Normal ROM, no tenderness, There is no pedal edema. There is no calf tenderness or swelling. Sensation intact. Pulses equal bilaterally 2+. Neurological: CN II-XII intact, There are no obvious motor or sensory deficits. Coordination appears grossly intact. Speech is normal. Skin: Skin is warm and dry and rash to left side of the abdomen since the back that is suspicious for shingles patient states he's had it for one month. Psychiatric: Cooperative, appropriate mood & affect, normal judgment. Limitations: no limitations Course Vital Signs 11/26/16 23:08 Temperature 98.2 F Pulse Rate 52 L Respiratory 16 Rate Blood Pressure 195/79 O2 Sat by Pulse 94 L Oximetry Medical Decision Making - Medical Decision Making 76-year-old male presents to the emergency department with a chief complaint of abdominal pain. At this time patient's laboratory is reviewed as well as CAT scan. This time there does not appear to be any acute findings patient's abdominal pain. We did discuss results we discussed his renal cysts and we discussed his hepatic lesions. Her heart of the documentation per discharge instructions as well. This time we discussed the patient could go home. We did discuss follow-up and return parameters all questions. The patient stated he understood and he is agreement with plan. He will be discharged at this time. - Lab Data Result diagrams: 11/26/16 23:45 11/26/16 23:45 Lab Results 11/26/16 11/26/16 Range/Units 23:45 23:45 WBC 7.8 (3.8-10.6) k/uL RBC 4.54 (4.30-5.90) m/uL Hgb 14.9 (13.0-17.5) gm/dL Hct 42.7 (39.0-53.0) % MCV 94.0 (80.0-100.0) fL MCH 32.9 (25.0-35.0) pg MCHC 35.0 (31.0-37.0) g/dL RDW 14.6 (11.5-15.5) % Plt Count 264 (150-450) k/uL Neutrophils % 62 % Lymphocytes % 22 % Monocytes % 9 % Eosinophils % 4 % Basophils % 1 % Neutrophils # 4.9 (1.3-7.7) k/uL Lymphocytes # 1.7 (1.0-4.8) k/uL Monocytes # 0.7 (0-1.0) k/uL Eosinophils # 0.3 (0-0.7) k/uL Basophils # 0.1 (0-0.2) k/uL Sodium 142 (137-145) mmol/L Potassium 3.9 (3.5-5.1) mmol/L Chloride 108 H (98-107) mmol/L Carbon Dioxide 27 (22-30) mmol/L Anion Gap 7 mmol/L BUN 21 H (9-20) mg/dL Creatinine 1.08 (0.66-1.25) mg/dL Est GFR (MDRD) Af Amer >60 (>60 ml/min/1.73 sqM) Est GFR (MDRD) Non-Af >60 (>60 ml/min/1.73 sqM) Glucose 94 (74-99) mg/dL Calcium 8.9 (8.4-10.2) mg/dL Total Bilirubin 0.4 (0.2-1.3) mg/dL AST 18 (17-59) U/L ALT 21 (21-72) U/L Alkaline Phosphatase 71 (38-126) U/L Total Protein 6.1 L (6.3-8.2) g/dL Albumin 3.8 (3.5-5.0) g/dL Amylase 32 (30-110) U/L Lipase 138 (23-300) U/L - Radiology Data Radiology results: report reviewed, image reviewed Disposition Clinical Impression: Abdominal pain Disposition: HOME SELF-CARE Condition: Stable Instructions: Abdominal Pain (ED) Additional Instructions: Please use medication as discussed. Please follow up with family doctor if symptoms have not improved over the next two days. Please return to the emergency room if your symptoms increase or worsen or for any other concerns. Referrals: dEward Minor MD [Primary Care Provider] - 1-2 days Time of Disposition: 01:05
--- NOTE | 2016-11-27 00:59 | CT ---
EXAM: CT Abdomen and Pelvis Without Intravenous Contrast CLINICAL HISTORY: Abdominal pain and swelling. Had hernia surgery about 5 months ago. TECHNIQUE: Axial computed tomography images of the abdomen and pelvis without intravenous contrast. Coronal and sagittal reformatted images were created and reviewed. DOSE INFORMATION: CTDI is 0.25 (topogram), 19.19 mGy and DLP is 1051.75 mGy-cm. This CT exam was performed using one or more of the following dose reduction techniques: automated exposure control, adjustment of the mA and/or kV according to patient size, and/or use of iterative reconstruction technique. COMPARISON: No relevant prior studies available. FINDINGS: Lower thorax: Tiny hiatal hernia. Visualized lower thorax otherwise unremarkable. ABDOMEN: Liver: Subcentimeter hypodense hepatic lesions. Gallbladder and bile ducts: Small gallstones. No CT evidence of acute cholecystitis. Pancreas: Unremarkable. No ductal dilation. No adjacent inflammatory changes. Spleen: Unremarkable. No splenomegaly. Adrenals: Unremarkable. No mass. Kidneys and ureters: Bilateral renal lesions which predominantly appear to represent cysts. Several subcentimeter hyperdense renal lesions are present which may represent proteinaceous or hemorrhagic cysts although other etiologies are not excluded. No hydronephrosis or ureteral calculus. Stomach and bowel: Scattered air-fluid levels within small bowel loops. Appendix: No evidence of acute appendicitis. PELVIS: Bladder: Unremarkable. No calculi or wall thickening. Reproductive: Prostate measures 4.5 cm transverse. ABDOMEN and PELVIS: Intraperitoneal space: No free air. No ascites or significant fluid collection. Bones/joints: Degenerative changes of the spine. No acute fracture. No dislocation. Soft tissues: Mild stranding within the anterior abdomen/peritoneum subjacent to the umbilicus. Soft tissues otherwise unremarkable. Vasculature: Mild scattered atherosclerosis. No aortic aneurysm. Lymph nodes: Unremarkable. No enlarged lymph nodes. IMPRESSION: 1. Scattered air-fluid levels within small bowel loops. Findings may represent mild nonspecific enteritis or ileus. No evidence of bowel obstruction, bowel wall thickening or free air. 2. Small gallstones. No CT evidence of acute cholecystitis. 3. Mild stranding in the anterior abdomen/peritoneum subjacent to umbilicus which may be postsurgical changes or mild scarring from hernia repair. Correlate clinically. 4. Bilateral renal lesions which predominantly appear to represent cysts. Several subcentimeter hyperdense renal lesions are present which may represent proteinaceous or hemorrhagic cysts although other etiologies are not excluded. 5. Subcentimeter hypodense hepatic lesions. These may represent small hepatic cysts although are too small to characterize. 6. Tiny hiatal hernia.
[2016-11-27 02:28] VITALS: BP 142/70; PULSE 84; TEMP 98
== END 2016-11-27 02:27 | disposition home or self-care (01) ==
LOC: EC 22:50
DX: R10.9 Unspecified abdominal pain (principal); J45.909 Unspecified asthma, uncomplicated; J44.9 Chronic obstructive pulmonary disease, unspecified; F03.90 Unspecified dementia, unspecified severity, without behavioral disturbance, psychotic disturbance, mood disturbance, and anxiety; E11.9 Type 2 diabetes mellitus without complications; E78.5 Hyperlipidemia, unspecified; I10 Essential (primary) hypertension; F41.9 Anxiety disorder, unspecified; F32.9 Major depressive disorder, single episode, unspecified; Z79.1 Long term (current) use of non-steroidal anti-inflammatories (NSAID); Z79.51 Long term (current) use of inhaled steroids; Z79.82 Long term (current) use of aspirin; Z79.899 Other long term (current) drug therapy; Z87.891 Personal history of nicotine dependence
CPT/HCPCS: 36415; 74176; 80053; 82150; 83690; 85025; 99284

== ENCOUNTER 2017-12-29 08:54 | Emergency (ER) | payer MEDICARE, OTHER ==
[2017-12-29 09:05] VITALS: RESP 18; TEMP 98
--- NOTE | 2017-12-29 09:47 | ED ---
General Adult HPI - General Chief complaint: Skin/Abscess/Foreign Body Stated complaint: spider bites Time Seen by Provider: 12/29/17 09:10 Source: patient, RN notes reviewed, old records reviewed Mode of arrival: ambulatory Limitations: no limitations - History of Present Illness Initial comments: Patient is a 77-year-old male presents emergency department today with his caregiver with chief complaint of rash over his arms and neck and back. He reports his been having some "spider bites" for the past 3 weeks. Caregiver does report that there are occasional spiders in the home that he lives in. They also report that are concerning for some hallucinations. Patient states that he has had some creams applied without much relief. He states that he has occasional shooting pains in the arm associated with the pruritus. - Related Data Home Medications Medication Instructions Recorded Confirmed Acetaminophen [Tylenol Arthritis] 650 mg PO Q8HR 01/16/16 09/04/16 Levothyroxine Sodium [Synthroid] 50 mcg PO DAILY 01/16/16 09/04/16 ALPRAZolam [Xanax] 0.5 mg PO BID@0800,199907/18/16 09/04/16 Aspirin EC [Ecotrin] 325 mg PO DAILY 07/18/16 09/04/16 Atenolol [Tenormin] 50 mg PO BID 07/18/16 09/04/16 Atenolol/Chlorthalidone [Tenoretic 25 mg PO DAILY 07/18/16 09/04/16 50 Tablet] Cetirizine HCl [Zyrtec] 10 mg PO HS 07/18/16 09/04/16 Cholecalciferol [Vitamin D3] 5,000 unit PO DAILY 07/18/16 09/04/16 Fluticasone/Salmeterol [Advair 1 puff INHALATION RT-BID 07/18/16 09/04/16 250-50 Diskus] Ipratropium-Albuterol Nebulize 3 ml INHALATION RT-Q4H PRN 07/18/16 09/04/16 [Duoneb 0.5 mg-3 mg/3 ml Soln] Isosorbide Mononitrate ER [Imdur] 60 mg PO HS 07/18/16 09/04/16 Ketorolac 0.5% Ophth Soln [Acular 1 drops BOTH EYES Q6H PRN 07/18/16 09/04/16 0.5%] Sennosides-Docusate Sodium 1 tab PO HS 07/18/16 09/04/16 [Senokot-S] Sertraline [Zoloft] 100 mg PO HS 07/18/16 09/04/16 amLODIPine BESYLATE/BENAZEPRIL 1 cap PO HS 07/18/16 09/04/16 [Lotrel 5-20 mg Capsule] cloNIDine HCL [Catapres] 0.1 mg PO BID 07/18/16 09/04/16 Previous Rx's Medication Instructions Recorded Acetaminophen-Codeine 300-30mg 1 tab PO Q4H PRN #20 tablet 09/04/16 [Tylenol w/codeine #3] valACYclovir HCL [Valtrex] 1,000 mg PO TID #21 tablet 09/04/16 Hydrocortisone Cream 1 applic TOPICAL TID #30 gm 12/29/17 [Hydrocortisone 1% Cream] diphenhydrAMINE [Benadryl] 25 mg PO TID PRN #15 capsule 12/29/17 Allergies Allergy/AdvReac Type Severity Reaction Status Date / Time No Known Allergies Allergy Verified 12/29/17 08:59 Review of Systems ROS Statement: Those systems with pertinent positive or pertinent negative responses have been documented in the HPI. ROS Other: All systems not noted in ROS Statement are negative. Past Medical History Past Medical History: Asthma, COPD, Dementia, Diabetes Mellitus, GERD/Reflux, Hyperlipidemia, Hypertension Additional Past Medical History / Comment(s): previous oral rx for diabetes- none currently History of Any Multi-Drug Resistant Organisms: None Reported Past Surgical History: No Surgical Hx Reported Additional Past Anesthesia/Blood Transfusion Reaction / Comment(s): no hx at [place] Past Psychological History: Anxiety, Depression Smoking Status: Former smoker Past Alcohol Use History: None Reported Past Drug Use History: None Reported - Past Family History Mother Family Medical History: Unable to Obtain General Exam - General Exam Comments Initial Comments: 77-year-old male. Alert and oriented. No acute distress. Limitations: no limitations General appearance: alert, in no apparent distress Head exam: Present: atraumatic Eye exam: Present: normal appearance, PERRL, EOMI. Absent: scleral icterus, conjunctival injection, periorbital swelling ENT exam: Present: normal exam, mucous membranes moist Neck exam: Present: normal inspection. Absent: tenderness, meningismus, lymphadenopathy Respiratory exam: Present: normal lung sounds bilaterally. Absent: respiratory distress, wheezes, rales, rhonchi, stridor Cardiovascular Exam: Present: regular rate, normal rhythm, normal heart sounds. Absent: systolic murmur, diastolic murmur, rubs, gallop, clicks GI/Abdominal exam: Present: soft, normal bowel sounds. Absent: distended, tenderness, guarding, rebound, rigid Extremities exam: Present: normal inspection, full ROM, normal capillary refill. Absent: tenderness, pedal edema, joint swelling, calf tenderness Back exam: Present: normal inspection Neurological exam: Present: alert, oriented X3, CN II-XII intact Psychiatric exam: Present: normal affect, normal mood Skin exam: Present: warm, dry, intact, normal color, rash (Areas of erythema and scabbed over lesions over bilateral arms. Patient has been scratching at them. Evidence of excoriation. No pus or drainage.) Course Vital Signs 12/29/17 08:59 Temperature 98.0 F Pulse Rate 62 Respiratory 18 Rate Blood Pressure 172/85 O2 Sat by Pulse 98 Oximetry Medical Decision Making - Medical Decision Making 77-year-old male to emergency department today with a rash over his arms and back and neck. He was he's been bit by spiders. Caregiver is with him states that he has seen some spiders on his home. The Patient initially reported return for psych component of this however caregiver who is with me does not relate that he's been actively psychotic or having any other psychological symptoms. He does have evidence of abrasions and scabs and excoriation over the arm to 2. This. Patient will be started on steroid cream and antihistamine medication. I did discuss that he had some follow-up with PCP or dermatology. At this time he is not straining any psychotic episodes or concerns for me at this time. I discussed case with Dr. Joe. Patient will be returning home to his extended care facility. Disposition Clinical Impression: Rash, Pruritic dermatitis Disposition: HOME SELF-CARE Condition: Good Instructions: Dermatitis (ED) Additional Instructions: Patient is to follow-up with primary care physician. Return to the emergency department if any alarming signs or symptoms occur. Recommended follow-up with education professor. Prescriptions: diphenhydrAMINE [Benadryl] 25 mg PO TID PRN #15 capsule PRN Reason: Itching Hydrocortisone Cream [Hydrocortisone 1% Cream] 1 applic TOPICAL TID #30 gm Is patient prescribed a controlled substance at d/c from ED?: No Referrals: None,Stated [Primary Care Provider] - 1-2 days Mel Nuñez MD [STAFF PHYSICIAN] - 1-2 days Katelynn Ceron MD [STAFF PHYSICIAN] - 1-2 days Time of Disposition: 09:44
[2017-12-29 09:52] VITALS: BP 168/79; PULSE 70
== END 2017-12-29 09:51 | disposition home or self-care (01) ==
LOC: EC 08:54
DX: L30.8 Other specified dermatitis (principal); T63.301A Toxic effect of unspecified spider venom, accidental (unintentional), initial encounter; J44.9 Chronic obstructive pulmonary disease, unspecified; I10 Essential (primary) hypertension; F32.9 Major depressive disorder, single episode, unspecified; F41.9 Anxiety disorder, unspecified; Z87.891 Personal history of nicotine dependence; Z79.51 Long term (current) use of inhaled steroids; Z79.82 Long term (current) use of aspirin; Z79.891 Long term (current) use of opiate analgesic; Z79.899 Other long term (current) drug therapy
CPT/HCPCS: 99283

== ENCOUNTER 2018-03-15 17:05 | Emergency (ER) | payer MEDICARE, OTHER ==
[2018-03-15] MEDS ORDERED: SODIUM CHLORIDE 0.9% 500 ML 500 ML IV STA (17:42)
[2018-03-15] MEDS ORDERED: LABETALOL 5 MG/ML VIAL MDV IVP STA (17:48)
--- NOTE | 2018-03-15 17:54 | ED ---
General Adult HPI <Luis Alberto Pelaez - Last Filed: 03/15/18 19:44> - General Source: patient, EMS Mode of arrival: EMS Limitations: no limitations <Yolande Ulrich - Last Filed: 03/15/18 20:58> - General Chief complaint: Recheck/Abnormal Lab/Rx Stated complaint: Hypertension Time Seen by Provider: 03/15/18 17:09 - History of Present Illness Initial comments: 78-year-old male patient who is a patient at [facility] presents to the emergency department today for evaluation after having an episode of diaphoresis. Patient states that he was just resting when he suddenly became very sweaty, states it was tripping down his face. Patient states he had no other symptoms with this. Patient states he has had this 6-7 times in the past. Patient's blood pressure is also elevated. He states that his medications are given to him by staff at [facility] and he has been taking all of the recommended dosages. He denies dizziness, weakness, racing heart, chest pain, shortness of breath, nausea, or vomiting. Patient denies any recent rash, fever, chills, abdominal pain, diarrhea, constipation, back pain, numbness, tingling, hematuria, dysuria, urinary urgency, urinary frequency, headache, visual changes, or any other complaints. Patient states he is eating and drinking without difficulty. (Yolande Ulrich) - Related Data Home Medications Medication Instructions Recorded Confirmed Levothyroxine Sodium [Synthroid] 50 mcg PO DAILY@0801/16/16 03/15/18 Aspirin EC [Ecotrin] 325 mg PO DAILY@79907/18/16 03/15/18 Ipratropium-Albuterol Nebulize 3 ml INHALATION RT-Q4H PRN 07/18/16 03/15/18 [Duoneb 0.5 mg-3 mg/3 ml Soln] Isosorbide Mononitrate ER [Imdur] 60 mg PO DAILY@79907/18/16 03/15/18 Sennosides-Docusate Sodium 2 tab PO HS@1900 07/18/16 03/15/18 [Senokot-S] Sertraline [Zoloft] 100 mg PO HS@199907/18/16 03/15/18 amLODIPine BESYLATE/BENAZEPRIL 1 cap PO HS@199907/18/16 03/15/18 [Lotrel 5-20 mg Capsule] cloNIDine HCL [Catapres] 0.1 mg PO TID@0700,1500,2300 07/18/16 03/15/18 Acetaminophen Tab [Tylenol Tab] 500 mg PO Q6H PRN 03/15/18 03/15/18 Atenolol 25 mg PO DAILY@0800 03/15/18 03/15/18 Cyanocobalamin (Vitamin B-12) 1,000 mcg PO HS@199903/15/18 03/15/18 [Vitamin B-12] Docusate [Colace] 100 mg PO HS@199903/15/18 03/15/18 Gabapentin [Neurontin] 300 mg PO BID@0800,199903/15/18 03/15/18 Menthol [Biofreeze] 1 applic TOPICAL QID PRN 03/15/18 03/15/18 Rosuvastatin Calcium [Crestor] 5 mg PO HS@199903/15/18 03/15/18 busPIRone HCL 7.5 mg PO BID@0800,199903/15/18 03/15/18 Previous Rx's Medication Instructions Recorded diphenhydrAMINE [Benadryl] 25 mg PO TID PRN #15 capsule 12/29/17 Allergies Allergy/AdvReac Type Severity Reaction Status Date / Time No Known Allergies Allergy Verified 03/15/18 17:42 Review of Systems ROS Other: All systems not noted in ROS Statement are negative. <Luis Alberto Pelaez - Last Filed: 03/15/18 19:44> ROS Other: All systems not noted in ROS Statement are negative. <Yolande Ulrich - Last Filed: 03/15/18 20:58> ROS Statement: Those systems with pertinent positive or pertinent negative responses have been documented in the HPI. Past Medical History Past Medical History: Asthma, COPD, Dementia, Diabetes Mellitus, GERD/Reflux, Hyperlipidemia, Hypertension Additional Past Medical History / Comment(s): previous oral rx for diabetes- none currently History of Any Multi-Drug Resistant Organisms: None Reported Past Surgical History: No Surgical Hx Reported Additional Past Anesthesia/Blood Transfusion Reaction / Comment(s): no hx at [facility] Past Psychological History: Anxiety, Depression Smoking Status: Former smoker Past Alcohol Use History: None Reported Past Drug Use History: None Reported - Past Family History Mother Family Medical History: Unable to Obtain <Yolande Ulrich - Last Filed: 03/15/18 20:58> General Exam Limitations: no limitations General appearance: alert, in no apparent distress, other (This is a well- developed, well-nourished elderly male patient in no acute distress. Vital signs upon presentation are 99.3 degrees Fahrenheit, pulse 75, respirations 19, blood pressure 196/108, pulse ox 98% on room air.) Eye exam: Present: normal appearance, PERRL, EOMI. Absent: scleral icterus, conjunctival injection, periorbital swelling ENT exam: Present: normal exam, normal oropharynx, mucous membranes moist Respiratory exam: Present: normal lung sounds bilaterally. Absent: respiratory distress, wheezes, rales, rhonchi, stridor Cardiovascular Exam: Present: regular rate, normal rhythm, normal heart sounds. Absent: systolic murmur, diastolic murmur, rubs, gallop, clicks GI/Abdominal exam: Present: soft, normal bowel sounds. Absent: distended, tenderness, guarding, rebound, rigid Neurological exam: Present: alert, oriented X3, CN II-XII intact Psychiatric exam: Present: normal affect, normal mood Skin exam: Present: warm, dry, intact, normal color. Absent: rash <Yolande Ulrich - Last Filed: 03/15/18 20:58> Course <Luis Alberto Pelaez - Last Filed: 03/15/18 19:44> <Yolande Ulrich - Last Filed: 03/15/18 20:58> Vital Signs 03/15/18 03/15/18 03/15/18 17:12 18:23 18:32 Temperature 98.3 F Pulse Rate 75 66 59 L Respiratory 19 18 18 Rate Blood Pressure 196/108 183/88 177/83 O2 Sat by Pulse 98 99 98 Oximetry 03/15/18 03/15/18 03/15/18 20:00 20:09 20:55 Temperature Pulse Rate 68 66 70 Respiratory 20 16 18 Rate Blood Pressure 205/104 157/107 191/96 O2 Sat by Pulse 99 98 97 Oximetry - Reevaluation(s) Reevaluation #1: 03/15/18 19:45 [employer] supervision: I proceeded [id number] evaluation the patient did discuss findings with him. Patient is asymptomatic this time he has no further complaints. I do agree with the assessment and plan. I did review all the workup. Patient does demonstrate some evidence dehydration his blood pressure was elevated she will regarding pain with some of his blood pressure medication. He was directed in this. (Luis Alberto Pelaez) EKG Findings - EKG Comments: EKG Findings:: EKG obtained at 1723 shows sinus rhythm at the market sinus arrhythmia, incomplete right bundle branch block, ventricular 72, MA interval 182, QRS duration 94, QTC 400, QTC 438. No evidence of ST elevation or depression. <Yolande Ulrich - Last Filed: 03/15/18 20:58> Medical Decision Making - Lab Data Result diagrams: 03/15/18 17:29 03/15/18 17:29 <Luis Alberto Pelaez - Last Filed: 03/15/18 19:44> - Lab Data Result diagrams: 03/15/18 17:29 03/15/18 17:29 - Radiology Data Radiology results: report reviewed, image reviewed <Yolande Ulrich - Last Filed: 03/15/18 20:58> - Medical Decision Making 78-year-old male patient presented to the emergency department today for evaluation after having elevated blood pressure and episode of diaphoresis. Staff reports from [facility] the patient refused all medications today. Labs reviewed and are unremarkable. Patient denied any symptoms or physical concerns while in the department. States he is feeling well. EKG showed no acute changes. Chest x-ray showed some right diaphragm elevation that could be related to paralysis. Patient was given IV labetalol and clonidine here in the department. Vital signs did improve. He'll be discharged back to [facility] to follow-up with his primary doctor and to take his medications as directed. Return parameters discussed in detail. He verbalizes understanding and agrees with this plan. (Yolande Ulrich) - Lab Data Lab Results 03/15/18 03/15/18 03/15/18 Range/Units 17:29 17:29 17:29 WBC 9.5 (3.8-10.6) k/uL RBC 5.49 (4.30-5.90) m/uL Hgb 16.6 (13.0-17.5) gm/dL Hct 51.4 (39.0-53.0) % MCV 93.6 (80.0-100.0) fL MCH 30.2 (25.0-35.0) pg MCHC 32.3 (31.0-37.0) g/dL RDW 12.8 (11.5-15.5) % Plt Count 262 (150-450) k/uL Neutrophils % 70 % Lymphocytes % 18 % Monocytes % 8 % Eosinophils % 2 % Basophils % 0 % Neutrophils # 6.6 (1.3-7.7) k/uL Lymphocytes # 1.7 (1.0-4.8) k/uL Monocytes # 0.7 (0-1.0) k/uL Eosinophils # 0.2 (0-0.7) k/uL Basophils # 0.0 (0-0.2) k/uL PT (9.0-12.0) sec INR (<1.2) APTT (22.0-30.0) sec Sodium 145 (137-145) mmol/L Potassium 4.3 (3.5-5.1) mmol/L Chloride 109 H (98-107) mmol/L Carbon Dioxide 27 (22-30) mmol/L Anion Gap 9 mmol/L BUN 24 H (9-20) mg/dL Creatinine 1.15 (0.66-1.25) mg/dL Est GFR (CKD-EPI)AfAm 70 (>60 ml/min/1.73 sqM) Est GFR (CKD-EPI)NonAf 60 (>60 ml/min/1.73 sqM) Glucose 108 H (74-99) mg/dL Plasma Lactic Acid [place] (0.7-2.0) mmol/L Calcium 9.8 (8.4-10.2) mg/dL Magnesium 2.2 (1.6-2.3) mg/dL Total Bilirubin 0.6 (0.2-1.3) mg/dL AST 28 (17-59) U/L ALT 26 (21-72) U/L Alkaline Phosphatase 69 (38-126) U/L Total Creatine Kinase 89 (55-170) U/L CK-MB (CK-2) 2.7 H (0.0-2.4) ng/mL CK-MB (CK-2) Rel Index 3.0 Troponin I 0.016 (0.000-0.034) ng/mL Total Protein 7.0 (6.3-8.2) g/dL Albumin 4.2 (3.5-5.0) g/dL Urine Color Urine Appearance (Clear) Urine pH (5.0-8.0) Ur Specific [place] (1.001-1.035) Urine Protein (Negative) Urine Glucose (UA) (Negative) Urine Ketones (Negative) Urine Blood (Negative) Urine Nitrite (Negative) Urine Bilirubin (Negative) Urine Urobilinogen (<2.0) mg/dL Ur Leukocyte Esterase (Negative) Urine RBC (0-5) /hpf Urine WBC (0-5) /hpf Ur Squamous Epith Cells (0-4) /hpf Hyaline Casts (0-2) /lpf Urine Mucus (None) /hpf 03/15/18 03/15/18 03/15/18 Range/Units 17:29 17:29 18:30 WBC (3.8-10.6) k/uL RBC (4.30-5.90) m/uL Hgb (13.0-17.5) gm/dL Hct (39.0-53.0) % MCV (80.0-100.0) fL MCH (25.0-35.0) pg MCHC (31.0-37.0) g/dL RDW (11.5-15.5) % Plt Count (150-450) k/uL Neutrophils % % Lymphocytes % % Monocytes % % Eosinophils % % Basophils % % Neutrophils # (1.3-7.7) k/uL Lymphocytes # (1.0-4.8) k/uL Monocytes # (0-1.0) k/uL Eosinophils # (0-0.7) k/uL Basophils # (0-0.2) k/uL PT 10.4 (9.0-12.0) sec INR 1.1 (<1.2) APTT 24.5 (22.0-30.0) sec Sodium (137-145) mmol/L Potassium (3.5-5.1) mmol/L Chloride (98-107) mmol/L Carbon Dioxide (22-30) mmol/L Anion Gap mmol/L BUN (9-20) mg/dL Creatinine (0.66-1.25) mg/dL Est GFR (CKD-EPI)AfAm (>60 ml/min/1.73 sqM) Est GFR (CKD-EPI)NonAf (>60 ml/min/1.73 sqM) Glucose (74-99) mg/dL Plasma Lactic Acid [place] 0.8 (0.7-2.0) mmol/L Calcium (8.4-10.2) mg/dL Magnesium (1.6-2.3) mg/dL Total Bilirubin (0.2-1.3) mg/dL AST (17-59) U/L ALT (21-72) U/L Alkaline Phosphatase (38-126) U/L Total Creatine Kinase (55-170) U/L CK-MB (CK-2) (0.0-2.4) ng/mL CK-MB (CK-2) Rel Index Troponin I (0.000-0.034) ng/mL Total Protein (6.3-8.2) g/dL Albumin (3.5-5.0) g/dL Urine Color Yellow Urine Appearance Clear (Clear) Urine pH 5.5 (5.0-8.0) Ur Specific [place] 1.022 (1.001-1.035) Urine Protein 1+ H (Negative) Urine Glucose (UA) Negative (Negative) Urine Ketones Negative (Negative) Urine Blood Trace H (Negative) Urine Nitrite Negative (Negative) Urine Bilirubin Negative (Negative) Urine Urobilinogen <2.0 (<2.0) mg/dL Ur Leukocyte Esterase Trace H (Negative) Urine RBC 4 (0-5) /hpf Urine WBC 1 (0-5) /hpf Ur Squamous Epith Cells <1 (0-4) /hpf Hyaline Casts 1 (0-2) /lpf Urine Mucus Few H (None) /hpf - Radiology Data Two-view x-ray of the chest is obtained. There is no heart failure nor confluent pneumonic infiltrate. Thoracic aorta is atheromatous. There are chest leads. Bony thorax is intact. There is elevated right diaphragm. Impression by Dr. Rodriguez shows right diaphragm elevated compared to old exam. This could relate to paralysis. (Yolande Ulrich) Disposition <Luis Alberto Pelaez - Last Filed: 03/15/18 19:44> Is patient prescribed a controlled substance at d/c from ED?: No Time of Disposition: 20:19 <Yolande Ulrich - Last Filed: 03/15/18 20:58> Clinical Impression: Hypertension Disposition: HOME SELF-CARE Condition: Good Instructions: Hypertension (ED) Additional Instructions: Follow-up with your primary care physician for recheck. Take medications as directed. Return immediately for any new, worsening, or concerning symptoms per Referrals: Edward Minor MD [Primary Care Provider] - 1-2 days
[2018-03-15 18:08] LABS: Basophils % (A) 0 %; Eosinophils # (A) 0.2 k/uL (0-0.7); Eosinophils % (A) 2 %; HCT 51.4 % (39.0-53.0); HGB 16.6 gm/dL (13.0-17.5); Lymphocytes # (A) 1.7 k/uL (1.0-4.8); Lymphocytes % (A) 18 %; MCH 30.2 pg (25.0-35.0); MCHC 32.3 g/dL (31.0-37.0); MCV 93.6 fL (80.0-100.0); Mean Platelet Volume 7.6; Monocytes # (A) 0.7 k/uL (0-1.0); Monocytes % (A) 8 %; Neutrophils # (A) 6.6 k/uL (1.3-7.7); Neutrophils % (A) 70 %; Platelet Count 262 k/uL (150-450); RBC 5.49 m/uL (4.30-5.90); RDW 12.8 % (11.5-15.5); WBC 9.5 k/uL (3.8-10.6)
[2018-03-15 18:10] LABS: Appearance,Urine Clear (Clear); Bilirubin,Urine Negative (Negative); Blood,Urine Trace (Negative); Color,Urine Yellow; Glucose,Urine (UA) Negative (Negative); Hyaline Casts,Urine 1 /lpf (0-2); Ketones,Urine Negative (Negative); Leukocyte Esterase,Urine Trace (Negative); Mucus,Urine Few /hpf; Nitrite,Urine Negative (Negative); PH, Urine 5.5 (5.0-8.0); Protein,Urine 1+ (Negative); RBC,Urine 4 /hpf (0-5); Specific Gravity,Urine 1.022 (1.001-1.035); Squamous Epithelial Cell,Urine <1 /hpf (0-4); Urobilinogen,Urine <2.0 mg/dL (<2.0); WBC,Urine 1 /hpf (0-5)
[2018-03-15 18:11] LABS: Albumin 4.2 g/dL (3.5-5.0); Calcium 9.8 mg/dL (8.4-10.2); Magnesium 2.2 mg/dL (1.6-2.3); Potassium 4.3 mmol/L (3.5-5.1); Total Bilirubin 0.6 mg/dL (0.2-1.3)
[2018-03-15 18:16] LABS: INR 1.1 (<1.2); Partial Thromboplastin Time 24.5 sec (22.0-30.0); Prothrombin Time 10.4 sec (9.0-12.0)
[2018-03-15 18:25] LABS: Creatine Kinase MB 2.7 ng/mL (0.0-2.4)
[2018-03-15 18:27] LABS: Troponin I 0.016 ng/mL (0.000-0.034)
--- NOTE | 2018-03-15 19:11 | XR ---
EXAMINATION TYPE: XR chest 2V DATE OF EXAM: 03/15/2018 COMPARISON: NONE HISTORY: Chest pain TECHNIQUE: Frontal and lateral views of the chest are obtained. FINDINGS: There is no heart failure nor confluent pneumonic infiltrate. Thoracic aorta is atheromato us. There are chest leads. Bony thorax is intact. There is elevated right diaphragm. IMPRESSION: Right diaphragm is elevated compared to old exam. This could relate to paralysis.
[2018-03-15] MEDS ORDERED: cloNIDine HCL 0.1 MG TAB PO STA (19:30)
[2018-03-15 20:56] VITALS: BP 191/96; PULSE 70; RESP 18
[2018-03-15 21:14] VITALS: TEMP 97.6
== END 2018-03-15 21:11 | disposition home or self-care (01) ==
LOC: EC 17:05
DX: I10 Essential (primary) hypertension (principal); J44.9 Chronic obstructive pulmonary disease, unspecified; E78.5 Hyperlipidemia, unspecified; F41.9 Anxiety disorder, unspecified; F32.9 Major depressive disorder, single episode, unspecified; Z79.82 Long term (current) use of aspirin; Z79.899 Other long term (current) drug therapy; Z87.891 Personal history of nicotine dependence
CPT/HCPCS: 36415; 71046; 80053; 81001; 82550; 82553; 83605; 83735; 84484; 85025; 85610; 85730; 87040; 93005; 96361; 96374; 99284

== ENCOUNTER 2019-12-23 23:27 | Observation (INO) | payer MEDICARE, OTHER ==
--- NOTE | 2019-12-23 23:42 | ED ---
General Adult HPI - General Stated complaint: Hypertension Time Seen by Provider: 12/23/19 23:33 Source: patient, EMS Mode of arrival: EMS Limitations: no limitations - History of Present Illness Initial comments: Benigno is a pleasant 79-year-old male who was sent to the ER today after his blood pressure was checked at his living facility and he is found to be hypertensive. Patient is a very poor historian but states that he takes all his medications when he is given them area he denies any headache, chest pain, shortness breath or any complaints whatsoever. - Related Data Home Medications Medication Instructions Recorded Confirmed Levothyroxine Sodium [Synthroid] 50 mcg PO DAILY@0801/16/16 03/15/18 Aspirin EC [Ecotrin] 325 mg PO DAILY@79907/18/16 03/15/18 Ipratropium-Albuterol Nebulize 3 ml INHALATION RT-Q4H PRN 07/18/16 03/15/18 [Duoneb 0.5 mg-3 mg/3 ml Soln] Isosorbide Mononitrate ER [Imdur] 60 mg PO DAILY@79907/18/16 03/15/18 Sennosides-Docusate Sodium 2 tab PO HS@19007/18/16 03/15/18 [Senokot-S] Sertraline [Zoloft] 100 mg PO HS@199907/18/16 03/15/18 amLODIPine BESYLATE/BENAZEPRIL 1 cap PO HS@199907/18/16 03/15/18 [Lotrel 5-20 MG] cloNIDine HCL [Catapres] 0.1 mg PO TID@0700,1500,2300 07/18/16 03/15/18 Acetaminophen Tab [Tylenol Tab] 500 mg PO Q6H PRN 03/15/18 03/15/18 Cyanocobalamin (Vitamin B-12) 1,000 mcg PO HS@199903/15/18 03/15/18 [Vitamin B-12] Docusate [Colace] 100 mg PO HS@199903/15/18 03/15/18 Gabapentin [Neurontin] 300 mg PO BID@0800,199903/15/18 03/15/18 Menthol [Biofreeze] 1 applic TOPICAL QID PRN 03/15/18 03/15/18 Rosuvastatin Calcium [Crestor] 5 mg PO HS@199903/15/18 03/15/18 atenoloL [Atenolol] 25 mg PO DAILY@79903/15/18 03/15/18 busPIRone HCL 7.5 mg PO BID@799,199903/15/18 03/15/18 Previous Rx's Medication Instructions Recorded diphenhydrAMINE [Benadryl] 25 mg PO TID PRN #15 capsule 12/29/17 Allergies Allergy/AdvReac Type Severity Reaction Status Date / Time No Known Allergies Allergy Verified 03/15/18 17:42 Review of Systems ROS Statement: Those systems with pertinent positive or pertinent negative responses have been documented in the HPI. ROS Other: All systems not noted in ROS Statement are negative. Past Medical History Past Medical History: Asthma, COPD, Dementia, Diabetes Mellitus, GERD/Reflux, Hyperlipidemia, Hypertension Additional Past Medical History / Comment(s): previous oral rx for diabetes-none currently History of Any Multi-Drug Resistant Organisms: None Reported Past Surgical History: No Surgical Hx Reported Additional Past Anesthesia/Blood Transfusion Reaction / Comment(s): no hx at [facility] Past Psychological History: Anxiety, Depression Past Alcohol Use History: None Reported Past Drug Use History: None Reported - Past Family History Mother Family Medical History: Unable to Obtain General Exam - General Exam Comments Initial Comments: Physical Exam GENERAL: Patient is well-developed and well-nourished. Patient is nontoxic and well-hydrated and is in no distress. HENT: Normocephalic, Atraumatic. EYES: PERRL, EOMI PULMONARY: Unlabored respirations. No audible rales rhonchi or wheezing was noted. CARDIOVASCULAR: RRR Warm and well perfused extremities ABDOMEN: Obese No pulsatile masses Soft and nontender with normal bowel sounds. SKIN: Skin is clear with no lesions or rashes and otherwise unremarkable. : Deferred NEUROLOGIC: Patient is alert and oriented x2. Moving all extremities spontaneously MUSCULOSKELETAL: Normal extremities with adequate strength and full range of motion. No lower extremity swelling or edema. No calf tenderness. PSYCHIATRIC: Normal psychiatric evaluation. Limitations: no limitations Course Vital Signs 12/23/19 12/24/19 23:28 00:22 Temperature 98.5 F Pulse Rate 91 80 Respiratory 18 18 Rate Blood Pressure 209/106 198/109 O2 Sat by Pulse 94 L Oximetry EKG Findings - EKG Comments: EKG Findings:: EKG was obtained due to complaint of hypertension, EKG was obtained at 2335, rate is 80 rhythm is a narrow complex irregularly irregular rhythm consistent with atrial fibrillation there are no acute ST elevations or depressions no evidence acute ischemia infarction, significant respiratory artifact is noted. Medical Decision Making - Medical Decision Making The patient was seen and evaluated history is obtained from patient and EMS She was given clonidine for hypertension with some improvement and then a dose of enalapril IV Patient with asymptomatic hypertension however EKG reveals a new onset atrial fibrillation with a rate of only 80 Labs were obtained and were unremarkable Patient was started on low-dose heparin will be admitted to the hospital for consult cardiology for a new onset of atrial fibrillation Care was discussed with Dr. edith garrison who agrees with this plan - Lab Data Result diagrams: 12/24/19 00:04 12/24/19 00:04 Lab Results 12/24/19 12/24/19 12/24/19 Range/Units 00:04 00:04 00:20 WBC 8.9 (3.8-10.6) k/uL RBC 4.79 (4.30-5.90) m/uL Hgb 14.2 (13.0-17.5) gm/dL Hct 45.1 (39.0-53.0) % MCV 94.2 (80.0-100.0) fL MCH 29.7 (25.0-35.0) pg MCHC 31.5 (31.0-37.0) g/dL RDW 12.9 (11.5-15.5) % Plt Count 232 (150-450) k/uL Neutrophils % 64 % Lymphocytes % 22 % Monocytes % 8 % Eosinophils % 3 % Basophils % 1 % Neutrophils # 5.7 (1.3-7.7) k/uL Lymphocytes # 2.0 (1.0-4.8) k/uL Monocytes # 0.7 (0-1.0) k/uL Eosinophils # 0.3 (0-0.7) k/uL Basophils # 0.1 (0-0.2) k/uL PT 9.7 (9.0-12.0) sec INR 0.9 (<1.2) APTT 24.2 (22.0-30.0) sec Sodium 140 (137-145) mmol/L Potassium 3.8 (3.5-5.1) mmol/L Chloride 105 (98-107) mmol/L Carbon Dioxide 28 (22-30) mmol/L Anion Gap 7 mmol/L BUN 25 H (9-20) mg/dL Creatinine 1.02 (0.66-1.25) mg/dL Est GFR (CKD-EPI)AfAm 80 (>60 ml/min/1.73 sqM) Est GFR (CKD-EPI)NonAf 69 (>60 ml/min/1.73 sqM) Glucose 108 H (74-99) mg/dL Calcium 9.2 (8.4-10.2) mg/dL Total Bilirubin 0.3 (0.2-1.3) mg/dL AST 24 (17-59) U/L ALT 13 (4-49) U/L Alkaline Phosphatase 98 (38-126) U/L Total Protein 6.2 L (6.3-8.2) g/dL Albumin 4.0 (3.5-5.0) g/dL Disposition Clinical Impression: New onset a-fib, HTN (hypertension) Disposition: ADMITTED IP TO THIS HOSP Condition: Stable Is patient prescribed a controlled substance at d/c from ED?: No Referrals: Edward Minor MD [Primary Care Provider] - 1-2 days
[2019-12-23] MEDS ORDERED: cloNIDine HCL 0.1 MG TAB PO STA (23:55)
[2019-12-24 00:12] LABS: Basophils # (A) 0.1 k/uL (0-0.2); Basophils % (A) 1 %; Eosinophils # (A) 0.3 k/uL (0-0.7); Eosinophils % (A) 3 %; HCT 45.1 % (39.0-53.0); HGB 14.2 gm/dL (13.0-17.5); Lymphocytes % (A) 22 %; MCH 29.7 pg (25.0-35.0); MCHC 31.5 g/dL (31.0-37.0); MCV 94.2 fL (80.0-100.0); Monocytes # (A) 0.7 k/uL (0-1.0); Monocytes % (A) 8 %; Neutrophils # (A) 5.7 k/uL (1.3-7.7); Neutrophils % (A) 64 %; Platelet Count 232 k/uL (150-450); RBC 4.79 m/uL (4.30-5.90); RDW 12.9 % (11.5-15.5); WBC 8.9 k/uL (3.8-10.6)
[2019-12-24] MEDS ORDERED: ENALAPRILAT 1.25 MG/ML 1 ML VIAL IVP STA (00:14)
[2019-12-24 00:21] LABS: Calcium 9.2 mg/dL (8.4-10.2); Potassium 3.8 mmol/L (3.5-5.1); Total Bilirubin 0.3 mg/dL (0.2-1.3); Total Protein 6.2 g/dL (6.3-8.2)
[2019-12-24 00:36] LABS: INR 0.9 (<1.2); Partial Thromboplastin Time 24.2 sec (22.0-30.0); Prothrombin Time 9.7 sec (9.0-12.0)
[2019-12-24] MEDS ORDERED: HEPARIN SODIUM,PORCINE 5,000 UNIT/ML 1 ML VIAL IV PRN (00:43)
[2019-12-24] MEDS ORDERED: HEPARIN SODIUM,PORCINE 5,000 UNIT/ML 1 ML VIAL IV ONE (00:43)
[2019-12-24] MEDS ORDERED: HEPARIN SOD,PORK IN 0.45% NACL 25,000 UNIT in 0.45% NACL 1 250ML.BAG IV SCH (00:45)
[2019-12-24] MEDS ORDERED: NITROGLYCERIN SL TABS 0.4 MG TAB SUBLINGUAL PRN (00:46)
--- NOTE | 2019-12-24 01:35 | P.HPIM ---
History of Present Illness H&P Date: 12/24/19 Patient is an 79-year-old male with a PMH of hypertension, hyperlipidemia, type II DM, and COPD who was sent to the ED from his independent living after he was found to have very elevated blood pressures. As per the ED physician, the patient's systolic blood pressure at the facility was 220s though the patient was asymptomatic. At time of interview, the patient reported that he has been at his baseline throughout this entire time. He denied any active complaints including chest pain, shortness of breath, dizziness, headaches, nausea, or vomiting. Upon presentation to the ED, the patient's BP was 209/106 with laboratory evaluation showing WBC 8.9, hemoglobin 14.2, platelets 232, sodium 14 0, potassium 3.8, BNP 125, creatinine 1.02, and glucose of 108. EKG revealed new onset A. fib at 80 bpm. patient was admitted to the medicine service for new onset A. fib. Review of Systems Pertinent positives and negatives as discussed in HPI, a complete review of systems was performed and all other systems are negative. Past Medical History Past Medical History: Asthma, COPD, Dementia, Diabetes Mellitus, GERD/Reflux, Hyperlipidemia, Hypertension Additional Past Medical History / Comment(s): previous oral rx for diabetes-none currently History of Any Multi-Drug Resistant Organisms: None Reported Past Surgical History: No Surgical Hx Reported Additional Past Anesthesia/Blood Transfusion Reaction / Comment(s): no hx at [facility] Past Psychological History: Anxiety, Depression Past Alcohol Use History: None Reported Past Drug Use History: None Reported - Past Family History Mother Family Medical History: Unable to Obtain Medications and Allergies Home Medications Medication Instructions Recorded Confirmed Type Levothyroxine Sodium [Synthroid] 50 mcg PO DAILY@79901/16/16 03/15/18 History Aspirin EC [Ecotrin] 325 mg PO DAILY@79907/18/16 03/15/18 History Ipratropium-Albuterol Nebulize 3 ml INHALATION RT-Q4H PRN 07/18/16 03/15/18 History [Duoneb 0.5 mg-3 mg/3 ml Soln] Isosorbide Mononitrate ER [Imdur] 60 mg PO DAILY@0807/18/16 03/15/18 History Sennosides-Docusate Sodium 2 tab PO HS@1900 07/18/16 03/15/18 History [Senokot-S] Sertraline [Zoloft] 100 mg PO HS@199907/18/16 03/15/18 History amLODIPine BESYLATE/BENAZEPRIL 1 cap PO HS@199907/18/16 03/15/18 History [Lotrel 5-20 MG] cloNIDine HCL [Catapres] 0.1 mg PO TID@0700,1500,2300 07/18/16 03/15/18 History diphenhydrAMINE [Benadryl] 25 mg PO TID PRN #15 capsule 12/29/17 03/15/18 Rx Acetaminophen Tab [Tylenol Tab] 500 mg PO Q6H PRN 03/15/18 03/15/18 History Cyanocobalamin (Vitamin B-12) 1,000 mcg PO HS@199903/15/18 03/15/18 History [Vitamin B-12] Docusate [Colace] 100 mg PO HS@199903/15/18 03/15/18 History Gabapentin [Neurontin] 300 mg PO BID@08,199903/15/18 03/15/18 History Menthol [Biofreeze] 1 applic TOPICAL QID PRN 03/15/18 03/15/18 History Rosuvastatin Calcium [Crestor] 5 mg PO HS@199903/15/18 03/15/18 History atenoloL [Atenolol] 25 mg PO DAILY@0800 03/15/18 03/15/18 History busPIRone HCL 7.5 mg PO BID@799,199903/15/18 03/15/18 History Allergies Allergy/AdvReac Type Severity Reaction Status Date / Time No Known Allergies Allergy Verified 03/15/18 17:42 Physical Exam Vitals: Vital Signs Temp Pulse Resp BP Pulse Ox 12/24/19 01:12 81 18 169/119 95 12/24/19 00:22 80 18 198/109 12/23/19 23:28 98.5 F 91 18 209/106 94 L Intake and Output 12/23/19 12/23/19 12/24/19 14:59 22:59 06:59 Other: Weight 104.326 kg General: non toxic, no distress, appears at stated age, obese Derm: no unusual rashes/lesions no unusual ecchymoses, warm, dry Head: atraumatic, normocephalic, symmetric Eyes: EOMI, no lid lag, anicteric sclera, pupils equal round reactive to light ENT: Nose and ears atraumatic, no thrush, no pharyngeal erythema Neck: No thyromegaly, no cervical lymphadenopathy, trachea midline, supple Mouth: no lip lesion, mucus membranes moist Cardiovascular: S1S2 irregularly irregular, no murmur, positive posterior tibial pulse bilateral, no edema, capillary refill less than 2 seconds Lungs: CTA bilateral, no rhonchi, no rales , no accessory muscle use Abdominal: soft, nontender to palpation, no guarding, no appreciable organomegaly, normal bowel sounds Ext: no gross muscle atrophy, muscle strength 5 out of 5 in all 4 extremities grossly, no contractures, Neuro: CN II-XI grossly intact, light touch intact all 4 extremities, finger to nose within normal limits, Psych: Alert, oriented to person, place, and time, appropriate affect Results CBC & Chem 7: 12/24/19 00:04 12/24/19 00:04 Labs: Abnormal Lab Results - Last 24 Hours (Table) 12/24/19 Range/Units 00:04 BUN 25 H (9-20) mg/dL Glucose 108 H (74-99) mg/dL Total Protein 6.2 L (6.3-8.2) g/dL Assessment and Plan Plan: Newly diagnosed A. fib -Continue with heparin infusion -Echocardiogram -Cardiology consult -Cardiac monitoring Hypertensive urgency -Continue with home medications along with Lisinopril (will need to adjust once home medications confirmed) Chronic conditions: Type II DM, hypertension, hyperlipidemia, COPD -Lispro insulin sliding scale with blood glucose monitoring -Continue with home medications DVT prophylaxis -Heparin infusion The patient is admitted with an anticipated less than 2 midnight stay for evalua tion of afib CODE STATUS: Full Code Discussed with: Patient Anticipated discharge date: 1-[address]: Home A total of 40 minutes was spent on the care of this complex patient more than 50% of the time was spent in counseling and care coordination.
[2019-12-24 06:26] LABS: Glucose,Whole Blood 94 mg/dL (75-99)
[2019-12-24 07:13] LABS: Chloride 105 mmol/L (98-107)
[2019-12-24 07:15] LABS: African American GFR (CKD) >90 (>60 ml/min/1.73 sqM); Anion Gap 4 mmol/L; Blood Urea Nitrogen 22 mg/dL (9-20); Calcium 8.5 mg/dL (8.4-10.2); Carbon Dioxide 33 mmol/L (22-30); Glucose 94 mg/dL (74-99); Non-African American GFR(CKD) 80 (>60 ml/min/1.73 sqM); Potassium 3.6 mmol/L (3.5-5.1); Sodium 142 mmol/L (137-145)
[2019-12-24] MEDS: INSULIN ASPART (NovoLOG) 100 UNIT/ML VIAL SQ SCH ×3 (09:23→17:28)
[2019-12-24] MEDS: ISOSORBIDE MONONITRATE ER 60 MG TAB.ER.24H PO SCH (09:32)
[2019-12-24] MEDS: hydrALAZINE HCL 10 MG TAB PO PRN ×3 (09:32→20:52)
[2019-12-24] MEDS: TORSEMIDE 20 MG TAB PO SCH (09:32)
[2019-12-24] MEDS: atenoloL 50 MG TAB PO SCH (09:32)
[2019-12-24 11:45] LABS: Glucose,Whole Blood 93 mg/dL (75-99)
[2019-12-24] MEDS ORDERED: IPRATROPIUM-ALBUTEROL 3 ML NEB INHALATION PRN (11:58)
--- NOTE | 2019-12-24 14:27 | P.CRDCN ---
<Alissa Sheth - Last Filed: 12/24/19 14:25> History of Present Illness Consult date: 12/24/19 History of present illness: CHIEF COMPLAINT: hypertension HISTORY OF PRESENT ILLNESS: 79 year old male who was sent to the ER for evaluation after his blood pressure was taken by the staff where he resides and found to be hypertensive. Patient was given clonidine and vasotec with improvement in his blood pressure. Patient was found to be in afib. Patient denies previous history of afib. Patient denies chest pain. Denies shortness of breath. He has no complaints this morning during examination. He states he does not follow with a press setter outpatient. DIAGNOSTICS: EKG reveals atrial fibrillation. Heart rate 80 Laboratory data: WBC 8.9. Hemoglobin 14.2. Platelet count 232. Sodium 142. Potassium 3.6. BUN 22. Creatinine 0.90. Troponin 0.018. 0.022. 0.021. Current cardiac medications include Demadex 40 mg daily, hydralazine 10 mgPO 4 times a day as needed, atenolol 50 mg daily, benazepril 40 mg daily, Imdur 60 mg by mouth daily, and aspirin 325 mg daily REVIEW OF SYSTEMS: CONSTITUTIONAL: Denies fever or chills. HEENT: Denies blurred vision, vision changes, or eye pain. Denies hemoptysis CARDIOVASCULAR: Denies chest pain, orthopnea, PND or palpitations RESPIRATORY: No shortness of breath. GASTROINTESTINAL: Denies abdominal pain. Denies nausea or vomiting. HEMATOLOGIC: Denies bleeding disorders. GENITOURINARY: Denies any blood in urine. SKIN: Denies pruitis. Denies rash. PHYSICAL EXAM: VITAL SIGNS: Reviewed. GENERAL: Well-developed in no acute distress. HEENT: Head is normocephalic. Pupils are equal, round. Sclerae anicteric. Mucous membranes of the mouth are moist. Neck supple. No JVD or thyromegaly LUNGS: Respirations even and unlabored. Lungs essentially clear to auscultation bilaterally. HEART: Irregular rate and rhythm. S1 and S2 heard. ABDOMEN: Soft. Nondistended. Nontender. EXTREMITIES: Normal range of motion. No clubbing or cyanosis. Peripheral pulses intact. No lower extremity edema NEUROLOGIC: Awake and alert. Oriented x 3. ASSESSMENT: 1. New onset atrial fibrillation 2. Hypertension PLAN: -Continue current cardiac medications. Monitor blood pressure. -Begin Eliquis. Continue heparin drip until eliquis is administered. -Discontinue aspirin -Obtain echo Nurse practitioner note has been reviewed by physician. Signing provider agrees with the documented findings, assessment, and plan of care. Past Medical History Past Medical History: Asthma, COPD, Dementia, Diabetes Mellitus, GERD/Reflux, Hyperlipidemia, Hypertension Additional Past Medical History / Comment(s): previous oral rx for diabetes-none currently History of Any Multi-Drug Resistant Organisms: None Reported Past Surgical History: No Surgical Hx Reported Additional Past Anesthesia/Blood Transfusion Reaction / Comment(s): no hx at [place] Past Psychological History: Anxiety, Depression Past Alcohol Use History: None Reported Past Drug Use History: None Reported - Past Family History Mother Family Medical History: Unable to Obtain Medications and Allergies Home Medications Medication Instructions Recorded Confirmed Type Levothyroxine Sodium [Synthroid] 50 mcg PO DAILY@0600 01/16/16 12/24/19 History Ipratropium-Albuterol Nebulize 3 ml INHALATION RT-Q4H PRN 07/18/16 12/24/19 History [Duoneb 0.5 mg-3 mg/3 ml Soln] Isosorbide Mononitrate ER [Imdur] 60 mg PO DAILY@79907/18/16 12/24/19 History Sennosides-Docusate Sodium 2 tab PO HS@199907/18/16 12/24/19 History [Senokot-S] Sertraline [Zoloft] 100 mg PO HS@199907/18/16 12/24/19 History diphenhydrAMINE [Benadryl] 25 mg PO TID PRN #15 capsule 12/29/17 12/24/19 Rx Acetaminophen Tab [Tylenol Tab] 500 mg PO Q6H PRN 03/15/18 12/24/19 History Menthol [Biofreeze] 1 applic TOPICAL QID PRN 03/15/18 12/24/19 History Apixaban [Eliquis] 5 mg PO BID #60 tab 12/24/19 Rx Benazepril HCl 40 mg PO HS@199912/24/19 12/24/19 History Magnesium Hydroxide [Milk of 2,400 mg PO DAILY PRN 12/24/19 12/24/19 History Magnesia] QUEtiapine [SEROquel] 12.5 mg PO DAILY@79912/24/19 12/24/19 History Torsemide [Demadex] 40 mg PO DAILY@79912/24/19 12/24/19 History atenoloL [Tenormin] 50 mg PO DAILY@79912/24/19 12/24/19 History hydrALAZINE HCL 10 mg PO QID PRN 12/24/19 12/24/19 History Allergies Allergy/AdvReac Type Severity Reaction Status Date / Time No Known Allergies Allergy Verified 12/24/19 07:36 Physical Exam Vitals: Vital Signs Temp Pulse Pulse Resp BP BP Pulse Ox 12/24/19 04:00 97.9 F 90 20 123/81 93 L 12/24/19 01:16 97.8 F 80 20 192/75 94 L 12/24/19 01:12 81 18 169/119 95 12/24/19 00:22 80 18 198/109 12/23/19 23:28 98.5 F 91 18 209/106 94 L Intake and Output 12/23/19 12/24/19 12/24/19 22:59 06:59 14:59 Output Total 350 Balance -350 Output: Urine 350 Other: Voiding Method Toilet Urinal # Voids 1 Weight 101.5 kg Results 12/24/19 00:04 12/24/19 06:33 Cardiac Enzymes 12/24/19 12/24/19 12/24/19 Range/Units 00:04 00:20 03:18 AST 24 (17-59) U/L Troponin I 0.018 0.022 (0.000-0.034) ng/mL 12/24/19 Range/Units 06:33 AST (17-59) U/L Troponin I 0.021 (0.000-0.034) ng/mL Coagulation 12/24/19 12/24/19 Range/Units 00:20 06:33 PT 9.7 (9.0-12.0) sec APTT 24.2 53.0 H (22.0-30.0) sec CBC 12/24/19 Range/Units 00:04 WBC 8.9 (3.8-10.6) k/uL RBC 4.79 (4.30-5.90) m/uL Hgb 14.2 (13.0-17.5) gm/dL Hct 45.1 (39.0-53.0) % Plt Count 232 (150-450) k/uL Comprehensive Metabolic Panel 12/24/19 12/24/19 Range/Units 00:04 06:33 Sodium 140 142 (137-145) mmol/L Potassium 3.8 3.6 (3.5-5.1) mmol/L Chloride 105 105 (98-107) mmol/L Carbon Dioxide 28 33 H (22-30) mmol/L BUN 25 H 22 H (9-20) mg/dL Creatinine 1.02 0.90 (0.66-1.25) mg/dL Glucose 108 H 94 (74-99) mg/dL Calcium 9.2 8.5 (8.4-10.2) mg/dL AST 24 (17-59) U/L ALT 13 (4-49) U/L Alkaline Phosphatase 98 (38-126) U/L Total Protein 6.2 L (6.3-8.2) g/dL Albumin 4.0 (3.5-5.0) g/dL Current Medications Generic Name Dose Route Start Last Admin Trade Name Freq PRN Reason Stop Dose Admin Heparin Sodium (Porcine) 0 unit 12/24/19 00:43 Heparin IV PER PROTOCOL PRN Low PTT Protocol Heparin Sodium/Sodium Chloride 250 mls @ 9.389 mls/hr 12/24/19 00:45 12/24/19 01:01 25,000 unit/ Sodium Chloride IV 9 units/kg/hr .Q24H CHEN 9.389 mls/hr Administration Protocol 9 UNITS/KG/HR Insulin Aspart 0 unit 12/24/19 07:30 Novolog SQ AC-TID [facility] Protocol Nitroglycerin 0.4 mg 12/24/19 00:46 Nitrostat SUBLINGUAL Q5M PRN Chest Pain Intake and Output 12/23/19 12/24/19 12/24/19 22:59 06:59 14:59 Output Total 350 Balance -350 Output: Urine 350 Other: Voiding Method Toilet Urinal # Voids 1 Weight 101.5 kg 12/24/19 00:04 12/24/19 06:33 <Alfred Mejia - Last Filed: 12/24/19 16:02> History of Present Illness History of present illness: Agree with above assessment and plan. Atrial fibrillation with controlled ventricular response. Continue with beta razia, atenolol for rate control. Patient denies any hematochezia or melena however appears to be somewhat of a poor historian. Attempted to contact guard in as well as next of kin niece without any answer on phone. We will start Eliquis 5 mg twice a day and monitor hemoglobin. Patient appears stable from cardiology standpoint and stable for discharge home with outpatient follow-up per primary team. Thank you for your consult and please call with any questions. Physical Exam Vitals: Vital Signs Temp Pulse Pulse Resp BP BP Pulse Ox 12/24/19 12:00 65 16 162/94 12/24/19 11:22 16 12/24/19 08:00 98.2 F 70 16 201/119 97 12/24/19 04:00 97.9 F 90 20 123/81 93 L 12/24/19 01:16 97.8 F 80 20 192/75 94 L 12/24/19 01:12 81 18 169/119 95 12/24/19 00:22 80 18 198/109 12/23/19 23:28 98.5 F 91 18 209/106 94 L Intake and Output 12/24/19 12/24/19 12/24/19 06:59 14:59 22:59 Intake Total 240 Output Total 350 Balance -350 240 Intake: Oral 240 Output: Urine 350 Other: Voiding Method Toilet Toilet Urinal Urinal # Voids 1 1 Weight 101.5 kg Results 12/24/19 00:04 12/24/19 06:33 Cardiac Enzymes 12/24/19 12/24/19 12/24/19 Range/Units 00:04 00:20 03:18 AST 24 (17-59) U/L Troponin I 0.018 0.022 (0.000-0.034) ng/mL 12/24/19 Range/Units 06:33 AST (17-59) U/L Troponin I 0.021 (0.000-0.034) ng/mL Coagulation 12/24/19 12/24/19 Range/Units 00:20 06:33 PT 9.7 (9.0-12.0) sec APTT 24.2 53.0 H (22.0-30.0) sec CBC 12/24/19 Range/Units 00:04 WBC 8.9 (3.8-10.6) k/uL RBC 4.79 (4.30-5.90) m/uL Hgb 14.2 (13.0-17.5) gm/dL Hct 45.1 (39.0-53.0) % Plt Count 232 (150-450) k/uL Comprehensive Metabolic Panel 12/24/19 12/24/19 Range/Units 00:04 06:33 Sodium 140 142 (137-145) mmol/L Potassium 3.8 3.6 (3.5-5.1) mmol/L Chloride 105 105 (98-107) mmol/L Carbon Dioxide 28 33 H (22-30) mmol/L BUN 25 H 22 H (9-20) mg/dL Creatinine 1.02 0.90 (0.66-1.25) mg/dL Glucose 108 H 94 (74-99) mg/dL Calcium 9.2 8.5 (8.4-10.2) mg/dL AST 24 (17-59) U/L ALT 13 (4-49) U/L Alkaline Phosphatase 98 (38-126) U/L Total Protein 6.2 L (6.3-8.2) g/dL Albumin 4.0 (3.5-5.0) g/dL Current Medications Generic Name Dose Route Start Last Admin Trade Name Freq PRN Reason Stop Dose Admin Albuterol/Ipratropium 3 ml 12/24/19 11:58 Duoneb 0.5 Mg-3 Mg/3 Ml Soln INHALATION RT-Q4H PRN Shortness Of Breath Apixaban 5 mg 12/24/19 21:00 Eliquis PO BID [facility] Aspirin 325 mg 12/25/19 08:00 Aspirin PO DAILY@0800 [facility] Atenolol 50 mg 12/24/19 09:00 12/24/19 09:32 Tenormin PO 50 mg DAILY@0800 [facility] Administration Heparin Sodium (Porcine) 0 unit 12/24/19 00:43 Heparin IV 12/24/19 20:59 PER PROTOCOL PRN Low PTT Protocol Hydralazine HCl 10 mg 12/24/19 08:55 12/24/19 09:32 Apresoline PO 10 mg QID PRN Administration BLOOD PRESSURE >160 Heparin Sodium/Sodium Chloride 250 mls @ 9.389 mls/hr 12/24/19 00:45 12/24/19 01:01 25,000 unit/ Sodium Chloride IV 12/24/19 20:59 9 units/kg/hr .Q24H [facility] 9.389 mls/hr Administration Protocol 9 UNITS/KG/HR Insulin Aspart 0 unit 12/24/19 07:30 12/24/19 12:14 Novolog SQ Not Given AC-TID [facility] Protocol Isosorbide Mononitrate 60 mg 12/24/19 09:00 12/24/19 09:32 Imdur PO 60 mg DAILY@0800 [facility] Administration Levothyroxine Sodium 50 mcg 12/25/19 06:00 Synthroid PO DAILY@0600 [facility] Lisinopril 40 mg 12/24/19 20:00 Zestril PO HS@1999 [facility] Nitroglycerin 0.4 mg 12/24/19 00:46 Nitrostat SUBLINGUAL Q5M PRN Chest Pain Quetiapine Fumarate 12.5 mg 12/25/19 08:00 Seroquel PO DAILY@0800 [facility] Sertraline HCl 100 mg 12/24/19 20:00 Zoloft PO HS@1999 [facility] Torsemide 40 mg 12/24/19 09:00 12/24/19 09:32 Demadex PO 40 mg DAILY@0800 [facility] Administration Intake and Output 12/24/19 12/24/19 12/24/19 06:59 14:59 22:59 Intake Total 240 Output Total 350 Balance -350 240 Intake: Oral 240 Output: Urine 350 Other: Voiding Method Toilet Toilet Urinal Urinal # Voids 1 1 Weight 101.5 kg 12/24/19 00:04 12/24/19 06:33
--- NOTE | 2019-12-24 14:47 | P.PN ---
Progress Note - Text Progress Note Date: 12/24/19 Please free to H&P for full documentation. Patient was seen. He has no complains. He denies any chest pain, shortness breath or palpitations. No nausea or vomiting. No fever or chills. He is here for new onset A. fib and hypertensive urgency. His blood pressures better controlled at 162/94. Patient is in no acute distress. He has been restarted on his antihypertensive medication. Heparin drip will be discontinued for Eliquis. He is on telemetry monitoring. Echocardiogram is pending. Anticipated DC home tomorrow if blood pressure improved and patient is rate controlled.
[2019-12-24 16:40] LABS: Glucose,Whole Blood 91 mg/dL (75-99)
[2019-12-24] MEDS ORDERED: ACETAMINOPHEN TAB 500 MG TAB PO PRN (17:37)
--- NOTE | 2019-12-24 17:37 | ECHOF ---
Referral Reason:new afib MEASUREMENTS -------- HEIGHT: 157.5 cm WEIGHT: 101.2 kg BP: RVIDd: 3.6 cm (< 3.3) IVSd: 1.4 cm (0.6 - 1.1) LVIDd: 4.5 cm (3.9 - 5.3) LVPWd: 1.8 cm (0.6 - 1.1) EDV(Teich): 92 ml IVSs: 1.7 cm LVIDs: 3.4 cm LVPWs: 1.4 cm %IVS Thck: 15 % ESV(Teich): 49 ml EF(Teich): 47 % %FS: 23 % SV(Teich): 43 ml LA Diam: 4.6 cm (2.7 - 3.8) LALs A4C: 6.0 cm LAAs A4C: 22.5 cm LAESV A-L A4C: 72 ml LAESV MOD A4C: 67 ml LALs A2C: 4.4 cm LAAs A2C: 16.6 cm LAESV A-L A2C: 53 ml LAESV MOD A2C: 50 ml LAESV(A-L): 72 ml LAESV Index (A-L): 35.94 ml/m Ao Diam: 3.4 cm (2.0 - 3.7) AV Cusp: 1.9 cm (1.5 - 2.6) MV EXCURSION: 19.089 mm (> 18.000) MV EF SLOPE: 87 mm/s (70 - 150) EPSS: 0.7 cm TR Vmax: 2.33 m/s TR maxP.68 mmHg RAP: 5.00 mmHg RVSP: 26.68 mmHg FINDINGS -------- Atrial fibrillation. This was a technically adequate study. The left ventricular size is normal. There is moderate concentric left ventricular hypertrophy. O verall left ventricular systolic function is low-normal with, an EF between 50 - 55 %. The right ventricle is normal in size. The left atrium is moderately dilated. LA is moderately dilated 34-39 ml/m2 The right atrial size is normal. There is mild aortic valve sclerosis. Mild mitral regurgitation is present. Mild tricuspid regurgitation present. Right ventricular systolic pressure is normal at < 35 mmHg. Trace/mild (physiologic) pulmonic regurgitation. The aortic root size is normal. There is no pericardial effusion. CONCLUSIONS -------- 1. The left ventricular size is normal. 2. There is moderate concentric left ventricular hypertrophy. 3. Overall left ventricular systolic function is low-normal with, an EF between 50 - 55 %. 4. The right ventricle is normal in size. 5. The left atrium is moderately dilated. 6. LA is moderately dilated 34-39 ml/m2 7. The right atrial size is normal. 8. There is mild aortic valve sclerosis. 9. Mild mitral regurgitation is present. 10. Mild tricuspid regurgitation present. 11. Trace/mild (physiologic) pulmonic regurgitation. MAIL PROCESSING ASSOCIATE: Lili Lewis RDCS
[2019-12-24] MEDS: lisinopriL 20 MG TAB PO SCH (20:52)
[2019-12-24] MEDS: SERTRALINE 100 MG TAB PO SCH (20:52)
[2019-12-24] MEDS: APIXABAN 5 MG TAB PO SCH (20:52)
[2019-12-24 21:12] LABS: Glucose,Whole Blood 92 mg/dL (75-99)
[2019-12-24] MEDS ORDERED: MELATONIN 5 MG TABLET PO PRN (23:05)
[2019-12-25] MEDS: hydrALAZINE HCL 10 MG TAB PO PRN (05:40)
[2019-12-25] MEDS: atenoloL 50 MG TAB PO SCH (05:40)
[2019-12-25] MEDS: ISOSORBIDE MONONITRATE ER 60 MG TAB.ER.24H PO SCH (05:40)
[2019-12-25] MEDS: LEVOTHYROXINE 50 MCG TAB PO SCH (05:40)
[2019-12-25 06:44] LABS: Glucose,Whole Blood 102 mg/dL (75-99)
[2019-12-25] MEDS: INSULIN ASPART (NovoLOG) 100 UNIT/ML VIAL SQ SCH ×3 (06:46→17:11)
[2019-12-25 07:14] LABS: Basophils # (A) 0.1 k/uL (0-0.2); Basophils % (A) 0 %; Eosinophils # (A) 0.2 k/uL (0-0.7); Eosinophils % (A) 2 %; HCT 50.4 % (39.0-53.0); HGB 15.5 gm/dL (13.0-17.5); Lymphocytes # (A) 1.2 k/uL (1.0-4.8); Lymphocytes % (A) 10 %; MCH 29.5 pg (25.0-35.0); MCHC 30.8 g/dL (31.0-37.0); MCV 95.6 fL (80.0-100.0); Mean Platelet Volume 8.1; Monocytes # (A) 0.8 k/uL (0-1.0); Monocytes % (A) 6 %; Neutrophils # (A) 10.4 k/uL (1.3-7.7); Neutrophils % (A) 81 %; Platelet Count 273 k/uL (150-450); RBC 5.26 m/uL (4.30-5.90); WBC 12.9 k/uL (3.8-10.6)
[2019-12-25 07:31] LABS: Cholesterol 232 mg/dL (<200); HDL Cholesterol 55 mg/dL (40-60); LDL Cholesterol,Calculated 148 mg/dL (0-99); Triglycerides 144 mg/dL (<150)
[2019-12-25] MEDS ORDERED: ASPIRIN 325 MG TAB PO SCH (09:00)
[2019-12-25] MEDS: ASPIRIN 325 MG TAB PO SCH (09:46)
[2019-12-25] MEDS: QUEtiapine 25 MG TAB PO SCH (09:46)
[2019-12-25] MEDS: APIXABAN 5 MG TAB PO SCH ×2 (09:47→19:48)
[2019-12-25] MEDS: TORSEMIDE 20 MG TAB PO SCH (09:47)
--- NOTE | 2019-12-25 10:24 | P.PN ---
Subjective Feels better, no chest pain no abdominal pain. Blood pressure much better. Objective - Vital Signs Vital signs: Vital Signs Temp 97.8 F 12/25/19 05:43 Pulse 110 H 12/25/19 05:43 Resp 17 12/25/19 05:43 BP 174/98 12/25/19 06:46 Pulse Ox 92 L 12/25/19 05:43 Intake & Output 12/24/19 12/25/19 12/25/19 18:59 06:59 18:59 Intake Total 240 Output Total 500 Balance 240 -500 Weight 101.7 kg Intake: Oral 240 Output: Urine 500 Other: Voiding Method Toilet Toilet Urinal Urinal # Voids 1 1 - Exam General: non toxic, no distress, appears at stated age Derm: no unusual rashes/lesions Head: atraumatic, normocephalic, symmetric Eyes: EOMI, no lid lag ENT: Nose and ears atraumatic Neck: No thyromegaly Mouth: no lip lesion Cardiovascular: S1S2 irregularly irregular, no murmur Lungs: CTA bilateral, no rhonchi, no rales , no accessory muscle use Abdominal: soft, nontender to palpation Ext: no gross muscle atrophy, muscle strength 5 out of 5 in all 4 extremities grossly, no contractures, Neuro: CN II-XI grossly intact Psych: Alert, oriented to person, place, and time, appropriate affect - Labs CBC & Chem 7: 12/25/19 06:39 12/24/19 06:33 Labs: Abnormal Lab Results - Last 24 Hours (Table) 12/25/19 12/25/19 12/25/19 Range/Units 06:39 06:39 06:40 WBC 12.9 H (3.8-10.6) k/uL MCHC 30.8 L (31.0-37.0) g/dL Neutrophils # 10.4 H (1.3-7.7) k/uL POC Glucose (mg/dL) 102 H (75-99) mg/dL Cholesterol 232 H (<200) mg/dL LDL Cholesterol, Calc 148 H (0-99) mg/dL Assessment and Plan Plan: Newly diagnosed A. fib -Tolerating liquids -Echocardiogram EF 50- 55 % -Cardiology consult, input appreciated -Cardiac monitoring Hypertensive urgency -Continue current medications, blood pressure better controlled on atenolol, hydralazine lisinopril, Demadex and isosorbide Chronic conditions: Type II DM, hypertension, hyperlipidemia, COPD -Lispro insulin sliding scale with blood glucose monitoring -Continue with home medications DVT prophylaxis -Heparin infusion Disposition: Back home tomorrow
--- NOTE | 2019-12-25 10:58 | P.PN ---
Subjective Progress Note Date: 12/25/19 CHIEF COMPLAINT: hypertension HISTORY OF PRESENT ILLNESS: Patient examined this morning at the bedside. Patient has a product safety professional present. Patient denies chest pain or shortness of breath. His blood pressure remains significantly elevated with systolics ran ging from 170-210. He remains in atrial fibrillation. He was transitioned to Eliquis yesterday. Echocardiogram completed yesterday reveals ejection fraction between 50 and 55%. PHYSICAL EXAM: VITAL SIGNS: Reviewed. GENERAL: Well-developed in no acute distress. LUNGS: Respirations even and unlabored. Lungs essentially clear to auscultation bilaterally. HEART: Irregular rate and rhythm. S1 and S2 heard. ABDOMEN: Soft. Nondistended. Nontender. EXTREMITIES: Normal range of motion. No clubbing or cyanosis. Peripheral pulses intact. No lower extremity edema ASSESSMENT: 1. Persistent atrial fibrillation 2. Hypertension, uncontrolled PLAN: -Continue current cardiac medications -Add hydralazine 50 mg every 8 hours. Monitor blood pressure. -Continue Eliquis for anticoagulation Nurse practitioner note has been reviewed by physician. Signing provider agrees with the documented findings, assessment, and plan of care. Objective - Vital Signs Vital signs: Vital Signs Temp 97.8 F 12/25/19 05:43 Pulse 110 H 12/25/19 05:43 Resp 17 12/25/19 05:43 BP 174/98 12/25/19 06:46 Pulse Ox 92 L 12/25/19 05:43 Intake & Output 12/24/19 12/25/19 12/25/19 18:59 06:59 18:59 Intake Total 240 Output Total 500 Balance 240 -500 Weight 101.7 kg Intake: Oral 240 Output: Urine 500 Other: Voiding Method Toilet Toilet Urinal Urinal # Voids 1 1 - Labs CBC & Chem 7: 12/25/19 06:39 12/24/19 06:33 Labs: Abnormal Lab Results - Last 24 Hours (Table) 12/25/19 12/25/19 12/25/19 Range/Units 06:39 06:39 06:40 WBC 12.9 H (3.8-10.6) k/uL MCHC 30.8 L (31.0-37.0) g/dL Neutrophils # 10.4 H (1.3-7.7) k/uL POC Glucose (mg/dL) 102 H (75-99) mg/dL Cholesterol 232 H (<200) mg/dL LDL Cholesterol, Calc 148 H (0-99) mg/dL
[2019-12-25 11:40] LABS: Glucose,Whole Blood 129 mg/dL (75-99)
[2019-12-25] MEDS: hydrALAZINE HCL 50 MG TAB PO SCH ×3 (12:40→19:48)
[2019-12-25 16:51] LABS: Glucose,Whole Blood 86 mg/dL (75-99)
[2019-12-25] MEDS: SERTRALINE 100 MG TAB PO SCH (19:48)
[2019-12-25] MEDS: lisinopriL 20 MG TAB PO SCH (19:48)
[2019-12-25 21:23] LABS: Glucose,Whole Blood 104 mg/dL (75-99)
[2019-12-26] MEDS: INSULIN ASPART (NovoLOG) 100 UNIT/ML VIAL SQ SCH ×3 (06:03→17:26)
[2019-12-26] MEDS: LEVOTHYROXINE 50 MCG TAB PO SCH (06:04)
[2019-12-26 06:13] LABS: Glucose,Whole Blood 108 mg/dL (75-99)
[2019-12-26 06:32] LABS: Basophils % (A) 0 %; Eosinophils # (A) 0.1 k/uL (0-0.7); Eosinophils % (A) 1 %; HCT 47.1 % (39.0-53.0); HGB 14.9 gm/dL (13.0-17.5); Lymphocytes # (A) 1.1 k/uL (1.0-4.8); Lymphocytes % (A) 10 %; MCH 30.3 pg (25.0-35.0); MCHC 31.6 g/dL (31.0-37.0); Mean Platelet Volume 8.3; Monocytes % (A) 8 %; Neutrophils # (A) 9.3 k/uL (1.3-7.7); Neutrophils % (A) 78 %; Platelet Count 231 k/uL (150-450); RBC 4.91 m/uL (4.30-5.90); RDW 12.9 % (11.5-15.5); WBC 11.8 k/uL (3.8-10.6)
[2019-12-26] MEDS: QUEtiapine 25 MG TAB PO SCH (09:35)
[2019-12-26] MEDS: ASPIRIN 325 MG TAB PO SCH (09:35)
[2019-12-26] MEDS: TORSEMIDE 20 MG TAB PO SCH (09:35)
[2019-12-26] MEDS: ISOSORBIDE MONONITRATE ER 60 MG TAB.ER.24H PO SCH (09:36)
[2019-12-26] MEDS: hydrALAZINE HCL 50 MG TAB PO SCH ×2 (09:36→16:31)
[2019-12-26] MEDS: atenoloL 50 MG TAB PO SCH (09:36)
[2019-12-26] MEDS: APIXABAN 5 MG TAB PO SCH (09:36)
--- NOTE | 2019-12-26 09:56 | P.DS ---
Providers Date of admission: 12/24/19 00:47 Attending physician: Jolanta Finch MD Consults: 12/24/19 00:47 Consult Physician Urgent Consulting Provider: [facility] Consult Reason/Comments: new afib Do you want consulting provider notified?: Yes, Notify in am Primary care physician: [facility] Course: HPI Patient is an 79-year-old male with a PMH of hypertension, hyperlipidemia, type II DM, and COPD who was sent to the ED from his independent living after he was found to have very elevated blood pressures. As per the ED physician, the patient's systolic blood pressure at the facility was 220s though the patient was asymptomatic. At time of interview, the patient reported that he has been at his baseline throughout this entire time. He denied any active complaints including chest pain, shortness of breath, dizziness, headaches, nausea, or vomiting. Upon presentation to the ED, the patient's BP was 209/106 with laboratory evaluation showing WBC 8.9, hemoglobin 14.2, platelets 232, sodium 140, potassium 3.8, BNP 125, creatinine 1.02, and glucose of 108. EKG revealed new onset A. fib at 80 bpm. patient was admitted to the medicine service for new onset A. fib. Hospital course and treatment: Patient was admitted to the hospital with elevated blood pressures systolic 220, he was found to have newly diagnosed atrial fibrillation and was started on heparin drip, 2-D echo was performed, was consistent with EF 50-55%. Patient was evaluated by cardiology, was started on Eliquis prior to discharge. For his blood pressure hydralazine was added. Patient remained hemodynamically stable and will be discharged home to follow-up with PCP and cardiology as an outpatient. Patient Condition at Discharge: Stable Plan - Discharge Summary New Discharge Prescriptions: New Apixaban [Eliquis] 5 mg PO BID #60 tab Discontinued Aspirin EC [Ecotrin] 325 mg PO DAILY@0800 No Action Levothyroxine Sodium [Synthroid] 50 mcg PO DAILY@0600 Sertraline [Zoloft] 100 mg PO HS@2000 Sennosides-Docusate Sodium [Senokot-S] 2 tab PO HS@2000 Ipratropium-Albuterol Nebulize [Duoneb 0.5 mg-3 mg/3 ml Soln] 3 ml INHALATION RT-Q4H PRN PRN Reason: Shortness Of Breath Isosorbide Mononitrate ER [Imdur] 60 mg PO DAILY@0800 diphenhydrAMINE [Benadryl] 25 mg PO TID PRN #15 capsule PRN Reason: Itching Menthol [Biofreeze] 1 applic TOPICAL QID PRN PRN Reason: RIGHT UPPER SHOULDER PAIN Acetaminophen Tab [Tylenol Tab] 500 mg PO Q6H PRN PRN Reason: Pain Torsemide [Demadex] 40 mg PO DAILY@0800 Magnesium Hydroxide [Milk of Magnesia] 2,400 mg PO DAILY PRN PRN Reason: Constipation hydrALAZINE HCL 10 mg PO QID PRN PRN Reason: BLOOD PRESSURE >160 QUEtiapine [SEROquel] 12.5 mg PO DAILY@0800 atenoloL [Tenormin] 50 mg PO DAILY@0800 Benazepril HCl 40 mg PO HS@1999 Discharge Medication List Levothyroxine Sodium [Synthroid] 50 mcg PO DAILY@0600 01/16/16 [History] Ipratropium-Albuterol Nebulize [Duoneb 0.5 mg-3 mg/3 ml Soln] 3 ml INHALATION RT-Q4H PRN 07/18/16 [History] Isosorbide Mononitrate ER [Imdur] 60 mg PO DAILY@0800 07/18/16 [History] Sennosides-Docusate Sodium [Senokot-S] 2 tab PO HS@199907/18/16 [History] Sertraline [Zoloft] 100 mg PO HS@199907/18/16 [History] diphenhydrAMINE [Benadryl] 25 mg PO TID PRN #15 capsule 12/29/17 [Rx] Acetaminophen Tab [Tylenol Tab] 500 mg PO Q6H PRN 03/15/18 [History] Menthol [Biofreeze] 1 applic TOPICAL QID PRN 03/15/18 [History] Apixaban [Eliquis] 5 mg PO BID #60 tab 12/24/19 [Rx] Benazepril HCl 40 mg PO HS@199912/24/19 [History] Magnesium Hydroxide [Milk of Magnesia] 2,400 mg PO DAILY PRN 12/24/19 [History] QUEtiapine [SEROquel] 12.5 mg PO DAILY@0800 08/17/20 [History] Torsemide [Demadex] 40 mg PO DAILY@79912/24/19 [History] atenoloL [Tenormin] 50 mg PO DAILY@79912/24/19 [History] hydrALAZINE HCL 10 mg PO QID PRN 12/24/19 [History] Follow up Appointment(s)/Referral(s): Alfred Mejia DO [STAFF PHYSICIAN] - 1 Week Edward Minor MD [Primary Care Provider] - 1-2 days Activity/Diet/Wound Care/Special Instructions: pts monthly copay for Eliquis is $3.90 pt resides at [facility] Discharge Disposition: HOME SELF-CARE
[2019-12-26 10:02] VITALS: RESP 18
[2019-12-26 11:46] LABS: Glucose,Whole Blood 111 mg/dL (75-99)
[2019-12-26 13:50] VITALS: BP 106/64; PULSE 68; TEMP 98.4
[2019-12-26 16:49] LABS: Glucose,Whole Blood 131 mg/dL (75-99)
== END 2019-12-26 17:32 | disposition home or self-care (01) ==
LOC: EC 23:27 → 3SCARD 12-24 00:47
PROVIDERS: ADMIT Internal Medicine; ATTEND Internal Medicine
DX: I16.0 Hypertensive urgency (principal); I10 Essential (primary) hypertension; I48.19 Other persistent atrial fibrillation; J44.9 Chronic obstructive pulmonary disease, unspecified; E11.9 Type 2 diabetes mellitus without complications; K21.9 Gastro-esophageal reflux disease without esophagitis; E78.5 Hyperlipidemia, unspecified; F03.90 Unspecified dementia, unspecified severity, without behavioral disturbance, psychotic disturbance, mood disturbance, and anxiety; F41.9 Anxiety disorder, unspecified; F32.9 Major depressive disorder, single episode, unspecified; K59.00 Constipation, unspecified; L29.9 Pruritus, unspecified; Z79.890 Hormone replacement therapy; Z79.82 Long term (current) use of aspirin; Z79.899 Other long term (current) drug therapy; Z79.01 Long term (current) use of anticoagulants; Z11.59 Encounter for screening for other viral diseases
CPT/HCPCS: 96366 ×2; 96376; 96365; 96375; 99285; 36415; 93005; 93306; 80061; 80053; 80048; 84484; 85025 ×3; 85610; 85730; 83036; 87635; G0378 ×3; J1644 ×2

== ENCOUNTER 2020-10-09 11:06 | Inpatient (IN) | payer MEDICARE, OTHER ==
[2020-10-09 11:41] LABS: Basophils % (A) 0 %; Eosinophils # (A) 0.2 k/uL (0-0.7); Eosinophils % (A) 2 %; HCT 38.2 % (39.0-53.0); HGB 12.7 gm/dL (13.0-17.5); Lymphocytes # (A) 0.9 k/uL (1.0-4.8); Lymphocytes % (A) 10 %; MCH 31.2 pg (25.0-35.0); MCHC 33.2 g/dL (31.0-37.0); MCV 94.1 fL (80.0-100.0); Mean Platelet Volume 7.7; Monocytes # (A) 0.8 k/uL (0-1.0); Monocytes % (A) 9 %; Neutrophils # (A) 6.7 k/uL (1.3-7.7); Neutrophils % (A) 76 %; Platelet Count 245 k/uL (150-450); RBC 4.06 m/uL (4.30-5.90); RDW 13.1 % (11.5-15.5); WBC 8.7 k/uL (3.8-10.6)
--- NOTE | 2020-10-09 11:56 | ED ---
SOB HPI <Luis Alberto Pelaez - Last Filed: 10/09/20 13:13> - General Source: patient, EMS, RN notes reviewed Mode of arrival: EMS <Cristofer Sprague - Last Filed: 10/09/20 13:41> - General Stated Complaint: SOB Time Seen by Provider: 10/09/20 11:09 - History of Present Illness Initial Comments: Patient is an 80-year-old male that presents the EMS complaining of increased shortness of breath on exertion. He does have a cardiac history, COPD, CHF. He notes that the shortness of breath occurs mostly on exertion. He denied any other pain or complaints at this time. He did note that he was feeling short of breath and report on oxygen in the ambulance. EMS noted that he was saturating at 96% on 2 L oxygen. Patient was in no apparent distress or pain while sitting up in bed during exam and interview. He denied any chest pain headache nausea vomiting diarrhea constipation fever fatigue chills. (Cristofer Sprague) - Related Data Home Medications Medication Instructions Recorded Confirmed Ipratropium-Albuterol Nebulize 3 ml INHALATION RT-Q4H PRN 07/18/16 10/09/20 [Duoneb 0.5 mg-3 mg/3 ml Soln] Sennosides-Docusate Sodium 2 tab PO HS@199907/18/16 10/09/20 [Senokot-S] Sertraline [Zoloft] 100 mg PO HS@199907/18/16 10/09/20 Acetaminophen Tab [Tylenol] 500 mg PO Q6H PRN 03/15/18 10/09/20 Torsemide [Demadex] 40 mg PO DAILY@79912/24/19 10/09/20 atenoloL [Tenormin] 50 mg PO DAILY@79912/24/19 10/09/20 Apixaban [Eliquis] 5 mg PO BID@799,199910/09/20 10/09/20 Levothyroxine Sodium [Synthroid] 75 mcg PO DAILY@59910/09/20 10/09/20 Magnesium Hydroxide [Milk of 2,400 mg PO Q72H PRN 10/09/20 10/09/20 Magnesia] Menthol [Biofreeze] 1 applic TOPICAL QID PRN 10/09/20 10/09/20 QUEtiapine [SEROquel] 50 mg PO BID@0800,199910/09/20 10/09/20 hydrALAZINE HCL 10 mg PO QID PRN 10/09/20 10/09/20 hydrALAZINE HCL [Apresoline] 50 mg PO TID@0800,1400,199910/09/20 10/09/20 lisinopriL 40 mg PO HS@199910/09/20 10/09/20 Previous Rx's Medication Instructions Recorded diphenhydrAMINE [Benadryl] 25 mg PO TID PRN #15 capsule 12/29/17 Allergies Allergy/AdvReac Type Severity Reaction Status Date / Time No Known Allergies Allergy Verified 10/09/20 11:46 Review of Systems ROS Other: All systems not noted in ROS Statement are negative. <Luis Alberto Pelaez - Last Filed: 10/09/20 13:13> ROS Other: All systems not noted in ROS Statement are negative. <Cristofer Sprague - Last Filed: 10/09/20 13:41> ROS Statement: Those systems with pertinent positive or pertinent negative responses have been documented in the HPI. Past Medical History Past Medical History: Asthma, COPD, Dementia, Diabetes Mellitus, GERD/Reflux, Hyperlipidemia, Hypertension Additional Past Medical History / Comment(s): previous oral rx for diabetes-none currently History of Any Multi-Drug Resistant Organisms: None Reported Past Surgical History: No Surgical Hx Reported Additional Past Anesthesia/Blood Transfusion Reaction / Comment(s): no hx at [facility] Past Psychological History: Anxiety, Depression Past Alcohol Use History: None Reported Past Drug Use History: None Reported - Past Family History Mother Family Medical History: Unable to Obtain <Cristofer Sprague - Last Filed: 10/09/20 13:41> General Exam General appearance: alert, in no apparent distress Head exam: Present: atraumatic, normocephalic, normal inspection Eye exam: Present: normal appearance, PERRL, EOMI. Absent: scleral icterus, conjunctival injection, periorbital swelling Neck exam: Present: normal inspection Respiratory exam: Present: normal lung sounds bilaterally. Absent: respiratory distress, wheezes, rales, rhonchi, stridor Cardiovascular Exam: Present: regular rate, normal rhythm, normal heart sounds. Absent: systolic murmur, diastolic murmur, rubs, gallop, clicks GI/Abdominal exam: Present: soft, normal bowel sounds. Absent: distended, tenderness, guarding, rebound, rigid Extremities exam: Present: normal inspection, full ROM, normal capillary refill. Absent: tenderness, pedal edema, joint swelling, calf tenderness Neurological exam: Present: alert, oriented X3, CN II-XII intact Psychiatric exam: Present: normal affect, normal mood Skin exam: Present: warm, dry, intact, normal color. Absent: rash <Cristofer Sprague - Last Filed: 10/09/20 13:41> Course <Luis Alberto Pelaez - Last Filed: 10/09/20 13:13> Vital Signs 10/09/20 10/09/20 10/09/20 11:21 12:53 12:54 Temperature 98.6 F Pulse Rate 56 L 75 Respiratory 20 18 20 Rate Blood Pressure 118/65 141/81 O2 Sat by Pulse 92 L 97 Oximetry - Reevaluation(s) Reevaluation #1: 10/09/20 13:13 PA supervision: I personally evaluate this patient did present with complaints of shortness of breath he decrease breath sounds. Evidence of CHF with bronchospasm. Patient does have elevated BNP. The patient will be admitted case discussed with the [facility]. I do agree with the assessment and plan (Luis Alberto Pelaez) Medical Decision Making - Lab Data Result diagrams: 10/09/20 11:27 10/09/20 11:27 <Luis Alberto Pelaez - Last Filed: 10/09/20 13:13> - Lab Data Result diagrams: 10/09/20 11:27 10/09/20 11:27 - EKG Data -: EKG Interpreted by Tx - Radiology Data Radiology results: report reviewed, image reviewed <Cristofer Sprague - Last Filed: 10/09/20 13:41> - Medical Decision Making 80-year-old male complaining of increased short of breath on exertion. Labs, EKG, chest x-ray, 2 L of oxygen via nasal cannula ordered. Labs similar to baseline. Unremarkable. The natruretic peptide 4180 elevated from previous studies done in 2017 40 mg of furosemide and a DuoNeb breathing treatment ordered. Case discussed with Dr. Pelaez, patient will be admitted inpatient. Dr. Valencia consulted and will accept the admit. (Cristofer Sprague) - Lab Data Lab Results 10/09/20 10/09/20 10/09/20 Range/Units 11:27 11:27 11:27 WBC 8.7 (3.8-10.6) k/uL RBC 4.06 L (4.30-5.90) m/uL Hgb 12.7 L (13.0-17.5) gm/dL Hct 38.2 L (39.0-53.0) % MCV 94.1 (80.0-100.0) fL MCH 31.2 (25.0-35.0) pg MCHC 33.2 (31.0-37.0) g/dL RDW 13.1 (11.5-15.5) % Plt Count 245 (150-450) k/uL MPV 7.7 Neutrophils % 76 % Lymphocytes % 10 % Monocytes % 9 % Eosinophils % 2 % Basophils % 0 % Neutrophils # 6.7 (1.3-7.7) k/uL Lymphocytes # 0.9 L (1.0-4.8) k/uL Monocytes # 0.8 (0-1.0) k/uL Eosinophils # 0.2 (0-0.7) k/uL Basophils # 0.0 (0-0.2) k/uL PT 11.6 (9.0-12.0) sec INR 1.1 (<1.2) APTT 26.1 (22.0-30.0) sec D-Dimer 0.34 (<0.60) mg/L FEU Sodium 142 (137-145) mmol/L Potassium 3.8 (3.5-5.1) mmol/L Chloride 106 (98-107) mmol/L Carbon Dioxide 30 (22-30) mmol/L Anion Gap 6 mmol/L BUN 27 H (9-20) mg/dL Creatinine 1.01 (0.66-1.25) mg/dL Est GFR (CKD-EPI)AfAm 80 (>60 ml/min/1.73 sqM) Est GFR (CKD-EPI)NonAf 69 (>60 ml/min/1.73 sqM) Glucose 104 H (74-99) mg/dL Plasma Lactic Acid [place] (0.7-2.0) mmol/L Calcium 8.8 (8.4-10.2) mg/dL Magnesium 2.2 (1.6-2.3) mg/dL Total Bilirubin 0.6 (0.2-1.3) mg/dL AST 42 (17-59) U/L ALT 39 (4-49) U/L Alkaline Phosphatase 79 (38-126) U/L Troponin I (0.000-0.034) ng/mL NT-Pro-B Natriuret Pep pg/mL Total Protein 6.0 L (6.3-8.2) g/dL Albumin 3.6 (3.5-5.0) g/dL Urine Color Urine Appearance (Clear) Urine pH (5.0-8.0) Ur Specific [place] (1.001-1.035) Urine Protein (Negative) Urine Glucose (UA) (Negative) Urine Ketones (Negative) Urine Blood (Negative) Urine Nitrite (Negative) Urine Bilirubin (Negative) Urine Urobilinogen (<2.0) mg/dL Ur Leukocyte Esterase (Negative) 10/09/20 10/09/20 10/09/20 Range/Units 11:27 11:27 11:27 WBC (3.8-10.6) k/uL RBC (4.30-5.90) m/uL Hgb (13.0-17.5) gm/dL Hct (39.0-53.0) % MCV (80.0-100.0) fL MCH (25.0-35.0) pg MCHC (31.0-37.0) g/dL RDW (11.5-15.5) % Plt Count (150-450) k/uL MPV Neutrophils % % Lymphocytes % % Monocytes % % Eosinophils % % Basophils % % Neutrophils # (1.3-7.7) k/uL Lymphocytes # (1.0-4.8) k/uL Monocytes # (0-1.0) k/uL Eosinophils # (0-0.7) k/uL Basophils # (0-0.2) k/uL PT (9.0-12.0) sec INR (<1.2) APTT (22.0-30.0) sec D-Dimer (<0.60) mg/L FEU Sodium (137-145) mmol/L Potassium (3.5-5.1) mmol/L Chloride (98-107) mmol/L Carbon Dioxide (22-30) mmol/L Anion Gap mmol/L BUN (9-20) mg/dL Creatinine (0.66-1.25) mg/dL Est GFR (CKD-EPI)AfAm (>60 ml/min/1.73 sqM) Est GFR (CKD-EPI)NonAf (>60 ml/min/1.73 sqM) Glucose (74-99) mg/dL Plasma Lactic Acid [place] 0.7 (0.7-2.0) mmol/L Calcium (8.4-10.2) mg/dL Magnesium (1.6-2.3) mg/dL Total Bilirubin (0.2-1.3) mg/dL AST (17-59) U/L ALT (4-49) U/L Alkaline Phosphatase (38-126) U/L Troponin I <0.012 (0.000-0.034) ng/mL NT-Pro-B Natriuret Pep 4180 pg/mL Total Protein (6.3-8.2) g/dL Albumin (3.5-5.0) g/dL Urine Color Urine Appearance (Clear) Urine pH (5.0-8.0) Ur Specific [place] (1.001-1.035) Urine Protein (Negative) Urine Glucose (UA) (Negative) Urine Ketones (Negative) Urine Blood (Negative) Urine Nitrite (Negative) Urine Bilirubin (Negative) Urine Urobilinogen (<2.0) mg/dL Ur Leukocyte Esterase (Negative) 10/09/20 Range/Units 11:27 WBC (3.8-10.6) k/uL RBC (4.30-5.90) m/uL Hgb (13.0-17.5) gm/dL Hct (39.0-53.0) % MCV (80.0-100.0) fL MCH (25.0-35.0) pg MCHC (31.0-37.0) g/dL RDW (11.5-15.5) % Plt Count (150-450) k/uL MPV Neutrophils % % Lymphocytes % % Monocytes % % Eosinophils % % Basophils % % Neutrophils # (1.3-7.7) k/uL Lymphocytes # (1.0-4.8) k/uL Monocytes # (0-1.0) k/uL Eosinophils # (0-0.7) k/uL Basophils # (0-0.2) k/uL PT (9.0-12.0) sec INR (<1.2) APTT (22.0-30.0) sec D-Dimer (<0.60) mg/L FEU Sodium (137-145) mmol/L Potassium (3.5-5.1) mmol/L Chloride (98-107) mmol/L Carbon Dioxide (22-30) mmol/L Anion Gap mmol/L BUN (9-20) mg/dL Creatinine (0.66-1.25) mg/dL Est GFR (CKD-EPI)AfAm (>60 ml/min/1.73 sqM) Est GFR (CKD-EPI)NonAf (>60 ml/min/1.73 sqM) Glucose (74-99) mg/dL Plasma Lactic Acid [place] (0.7-2.0) mmol/L Calcium (8.4-10.2) mg/dL Magnesium (1.6-2.3) mg/dL Total Bilirubin (0.2-1.3) mg/dL AST (17-59) U/L ALT (4-49) U/L Alkaline Phosphatase (38-126) U/L Troponin I (0.000-0.034) ng/mL NT-Pro-B Natriuret Pep pg/mL Total Protein (6.3-8.2) g/dL Albumin (3.5-5.0) g/dL Urine Color Light Yellow Urine Appearance Clear (Clear) Urine pH 6.5 (5.0-8.0) Ur Specific [place] 1.006 (1.001-1.035) Urine Protein Negative (Negative) Urine Glucose (UA) Negative (Negative) Urine Ketones Negative (Negative) Urine Blood Negative (Negative) Urine Nitrite Negative (Negative) Urine Bilirubin Negative (Negative) Urine Urobilinogen <2.0 (<2.0) mg/dL Ur Leukocyte Esterase Negative (Negative) - EKG Data EKG Comments: Ventricular rate 57 bpm, ID interval *, QRS duration 94 ms, QTC 496 ms, PRT axes */48/-38. Atrial fibrillation with slow ventricular response with premature ventricular or aberrantly conducted complexes. Nonspecific ST and T-wave abnormality, prolonged QT, abnormal ECG. (Cristofer Sprague) - Radiology Data Chest x-ray: Heart is enlarged and there is interstitial pattern and small bilateral effusions. Basilar subsegmental consolidation. No pneumothorax. Correlate for mild venous congestion or interstitial pneumonitis. (Cristofer Sprague) Critical Care Time Critical Care Time: Yes Total Critical Care Time: 31 <Cristofer Sprague - Last Filed: 10/09/20 13:41> Critical Care Time: 80-year-old male with a CHF exacerbation. After labs and imaging showed venous congestion in the chest a DuoNeb breathing treatment and 40 mg of furosemide ordered. Patient is well-appearing in bed in no pain. We'll continue to monitor. (Cristofer Sprague) Disposition <Luis Alberto Pelaez - Last Filed: 10/09/20 13:13> Is patient prescribed a controlled substance at d/c from ED?: No Time of Disposition: 13:41 <Cristofer Sprague - Last Filed: 10/09/20 13:41> Clinical Impression: Congestive heart failure, Hypoxia Disposition: ADMITTED IP TO THIS HOSP Condition: Stable Referrals: Edward Minor MD [Primary Care Provider] - 1-2 days
[2020-10-09 12:01] LABS: Albumin 3.6 g/dL (3.5-5.0); Calcium 8.8 mg/dL (8.4-10.2); Potassium 3.8 mmol/L (3.5-5.1); Total Bilirubin 0.6 mg/dL (0.2-1.3)
--- NOTE | 2020-10-09 12:06 | XR ---
EXAMINATION TYPE: XR chest 2V DATE OF EXAM: 10/09/2020 COMPARISON: 03/25/2018 TECHNIQUE: PA and lateral views submitted. HISTORY: Difficulty breathing FINDINGS: Heart is enlarged and there is interstitial pattern and small bilateral effusions. Basilar subsegment al consolidation. No pneumothorax. IMPRESSION: 1. Correlate for mild venous congestion or interstitial pneumonitis.
[2020-10-09 12:16] LABS: INR 1.1 (<1.2)
[2020-10-09 12:17] LABS: D-Dimer 0.34 mg/L FEU (<0.60); Partial Thromboplastin Time 26.1 sec (22.0-30.0); Prothrombin Time 11.6 sec (9.0-12.0)
[2020-10-09 12:18] LABS: Magnesium 2.2 mg/dL (1.6-2.3)
[2020-10-09 12:24] LABS: Appearance,Urine Clear (Clear); Bilirubin,Urine Negative (Negative); Blood,Urine Negative (Negative); Color,Urine Light Yellow; Glucose,Urine (UA) Negative (Negative); Ketones,Urine Negative (Negative); Leukocyte Esterase,Urine Negative (Negative); Nitrite,Urine Negative (Negative); PH, Urine 6.5 (5.0-8.0); Protein,Urine Negative (Negative); Specific Gravity,Urine 1.006 (1.001-1.035); Urobilinogen,Urine <2.0 mg/dL (<2.0)
[2020-10-09] MEDS ORDERED: IPRATROPIUM-ALBUTEROL 3 ML NEB INHALATION STA (13:17)
[2020-10-09] MEDS ORDERED: FUROSEMIDE 10 MG/ML 4 ML VIAL IV STA (13:17)
[2020-10-09] MEDS ORDERED: NALOXONE 0.4 MG/ML 1 ML VIAL IV PRN (13:26)
[2020-10-09] MEDS ORDERED: ALBUTEROL HFA INHALER INHALATION STA (13:38)
[2020-10-09] MEDS: SODIUM CHLORIDE 0.9% 1,000 ML IV SCH (14:08)
[2020-10-09] MEDS ORDERED: IPRATROPIUM-ALBUTEROL 3 ML NEB INHALATION PRN (17:30)
[2020-10-09] MEDS ORDERED: MAGNESIUM HYDROXIDE 2,400 MG/10 ML CUP PO PRN (17:30)
[2020-10-09] MEDS ORDERED: ACETAMINOPHEN TAB 500 MG TAB PO PRN (17:30)
[2020-10-09] MEDS ORDERED: hydrALAZINE HCL 10 MG TAB PO PRN (17:30)
[2020-10-09] MEDS ORDERED: METHYL SALICYLATE/MENTHOL CREAM 5 OZ TOPICAL PRN (17:30)
[2020-10-09] MEDS: APIXABAN 5 MG TAB PO SCH (21:26)
[2020-10-09] MEDS: hydrALAZINE HCL 50 MG TAB PO SCH (21:26)
[2020-10-09] MEDS: SENNOSIDES-DOCUSATE SODIUM 1 EACH TAB PO SCH (21:26)
[2020-10-09] MEDS: SERTRALINE 100 MG TAB PO SCH (21:26)
[2020-10-09] MEDS: QUEtiapine 50 MG TAB PO SCH (21:26)
[2020-10-09] MEDS: lisinopriL 20 MG TAB PO SCH (21:26)
--- NOTE | 2020-10-09 22:12 | P.HPIM ---
History of Present Illness H&P Date: 10/09/20 Chief Complaint: Short of breath History of presenting complaint: This is a pleasant 80-year-old patient who follows with visiting physicians Dr. Minor. Patient lives at [facility]. Chronic stable medical conditions include hypertension, hyperlipidemia, diabetes, COPD, atrial fibrillation. Patient presents with worsening short of breath at least 2 weeks. Questionable mild fever. No cough. Appetite is fair. No change in bowel habits. Did have some perspiration. In the ER patient received IV Lasix 40 mg and felt better after the same. No obvious orthopnea. No chest pain. Does use a cane at her baseline Review of systems: GEN.: Tired EYES: None HEENT: Decreased hearing NECK: None RESPIRATORY: As above CARDIOVASCULAR: No edema GASTROINTESTINAL: None GENITOURINARY: None MUSCULOSKELETAL: Joint pains LYMPHATICS: None HEMATOLOGICAL: None PSYCHIATRY: Bit forgetful NEUROLOGICAL: None Past medical history to include: COPD, dementia, diabetes-off medications, GERD, hypertension, hyperlipidemia Social history: Patient smoked on and off for many years stopped about 5 years ago. Denies alcohol. Currently at [facility] Family history: Patient cannot tell Physical examination: VITAL SIGNS: 98.6, 56, 20, 118/65, 92% on room air GENERAL: BMI 28.6, laying in bed, tired. EYES: Pupils equal. Conjunctiva normal. HEENT: External appearance of nose and ears normal, oral cavity grossly normal. NECK: JVD unable to assess; masses not palpable. HEART: First and second heart sounds are normal; no edema. LUNGS: Respiratory rate increased; decreased breath sounds. ABDOMEN: Soft, nontender, liver spleen not palpable, no masses palpable. PSYCH: Patient able tonsil simple questionsl. NEUROLOGICAL: Cranial nerves grossly intact; no facial asymmetry, power and sensation grossly intact. LYMPHATICS: No lymph nodes palpable in the axilla and neck INVESTIGATIONS, reviewed in the clinical context: WBC 8.7 hemoglobin 12.7 platelets 245 potassium 3.8 creatinine 1.01 ProBNP: 4180. Troponin I negative UA negative Coronavirus [PCF]-not detected EKG tracing personally reviewed by me-atrial fibrillation, rate of 57 Chest x-ray film personally reviewed by me-pulmonary edema, cardiomegaly Assessment and plan: -Acute congestive heart failure exacerbation, EF not known IV Lasix. Strict I's and O's. 2-D echocardiogram -COPD in a previous smoker DuoNeb -Persistent atrial fibrillation, rate controlled Continue atenolol and eliquis -Essential hypertension Continue with hydralazine, lisinopril, atenolol -Hypothyroid Continue with Synthroid -Depression not otherwise specified Continue with Zoloft IV Lasix. 2-D echocardiogram. Monitor input and output Follow labs. Discussed with patient Past Medical History Past Medical History: Asthma, COPD, Dementia, Diabetes Mellitus, GERD/Reflux, Hyperlipidemia, Hypertension Additional Past Medical History / Comment(s): previous oral rx for diabetes-none currently History of Any Multi-Drug Resistant Organisms: None Reported Past Surgical History: No Surgical Hx Reported Additional Past Anesthesia/Blood Transfusion Reaction / Comment(s): no hx at [facility] Past Psychological History: Anxiety, Depression Past Alcohol Use History: None Reported Past Drug Use History: None Reported - Past Family History Mother Family Medical History: Unable to Obtain Medications and Allergies Home Medications Medication Instructions Recorded Confirmed Type Ipratropium-Albuterol Nebulize 3 ml INHALATION RT-Q4H PRN 07/18/16 10/09/20 History [Duoneb 0.5 mg-3 mg/3 ml Soln] Sennosides-Docusate Sodium 2 tab PO HS@199907/18/16 10/09/20 History [Senokot-S] Sertraline [Zoloft] 100 mg PO HS@199907/18/16 10/09/20 History diphenhydrAMINE [Benadryl] 25 mg PO TID PRN #15 capsule 12/29/17 10/09/20 Rx Acetaminophen Tab [Tylenol] 500 mg PO Q6H PRN 03/15/18 10/09/20 History Torsemide [Demadex] 40 mg PO DAILY@79912/24/19 10/09/20 History atenoloL [Tenormin] 50 mg PO DAILY@79912/24/19 10/09/20 History Apixaban [Eliquis] 5 mg PO BID@799,199910/09/20 10/09/20 History Levothyroxine Sodium [Synthroid] 75 mcg PO DAILY@59910/09/20 10/09/20 History Magnesium Hydroxide [Milk of 2,400 mg PO Q72H PRN 10/09/20 10/09/20 History Magnesia] Menthol [Biofreeze] 1 applic TOPICAL QID PRN 10/09/20 10/09/20 History QUEtiapine [SEROquel] 50 mg PO BID@0800,199910/09/20 10/09/20 History hydrALAZINE HCL 10 mg PO QID PRN 10/09/20 10/09/20 History hydrALAZINE HCL [Apresoline] 50 mg PO TID@0800,1400,199910/09/20 10/09/20 History lisinopriL 40 mg PO HS@199910/09/20 10/09/20 History Allergies Allergy/AdvReac Type Severity Reaction Status Date / Time No Known Allergies Allergy Verified 10/09/20 11:46 Physical Exam Vitals: Vital Signs Temp Pulse Resp BP Pulse Ox 10/09/20 20:27 74 18 162/85 96 10/09/20 14:11 77 18 148/98 96 10/09/20 12:54 20 10/09/20 12:53 75 18 141/81 97 10/09/20 11:21 98.6 F 56 L 20 118/65 92 L Intake and Output 10/09/20 10/09/20 10/09/20 06:59 14:59 22:59 Other: Weight 98.43 kg Results CBC & Chem 7: 10/09/20 11:27 10/09/20 11:27 Labs: Abnormal Lab Results - Last 24 Hours (Table) 10/09/20 10/09/20 Range/Units 11:27 11:27 RBC 4.06 L (4.30-5.90) m/uL Hgb 12.7 L (13.0-17.5) gm/dL Hct 38.2 L (39.0-53.0) % Lymphocytes # 0.9 L (1.0-4.8) k/uL BUN 27 H (9-20) mg/dL Glucose 104 H (74-99) mg/dL Total Protein 6.0 L (6.3-8.2) g/dL
[2020-10-10 06:26] LABS: African American GFR (CKD) >90 (>60 ml/min/1.73 sqM); Anion Gap 3 mmol/L; Blood Urea Nitrogen 22 mg/dL (9-20); Calcium 8.7 mg/dL (8.4-10.2); Carbon Dioxide 35 mmol/L (22-30); Chloride 106 mmol/L (98-107); Glucose 86 mg/dL (74-99); Non-African American GFR(CKD) 79 (>60 ml/min/1.73 sqM); Potassium 3.3 mmol/L (3.5-5.1); Sodium 144 mmol/L (137-145)
[2020-10-10] MEDS: LEVOTHYROXINE 75 MCG TAB PO SCH (06:29)
[2020-10-10] MEDS: QUEtiapine 50 MG TAB PO SCH ×2 (07:43→22:09)
[2020-10-10] MEDS: IPRATROPIUM-ALBUTEROL 3 ML NEB INHALATION SCH ×4 (07:47→20:41)
[2020-10-10] MEDS: hydrALAZINE HCL 50 MG TAB PO SCH ×3 (07:48→22:09)
[2020-10-10] MEDS: BUDESONIDE 0.5 MG/2 ML NEBU INHALATION SCH ×2 (07:48→20:41)
[2020-10-10] MEDS: atenoloL 50 MG TAB PO SCH (07:49)
[2020-10-10] MEDS: APIXABAN 5 MG TAB PO SCH ×2 (07:49→22:10)
[2020-10-10] MEDS ORDERED: TORSEMIDE 20 MG TAB PO SCH (08:00)
--- NOTE | 2020-10-10 11:37 | ECHOF ---
Referral Reason:Assess LV function MEASUREMENTS -------- HEIGHT: 185.4 cm WEIGHT: 98.4 kg BP: 137/83 RVIDd: 3.4 cm (< 3.3) IVSd: 2.0 cm (0.6 - 1.1) LVIDd: 4.4 cm (3.9 - 5.3) LVPWd: 1.7 cm (0.6 - 1.1) IVSs: 2.7 cm LVIDs: 2.4 cm LVPWs: 2.4 cm LAESV Index (A-L): 54.72 ml/m Ao Diam: 3.8 cm (2.0 - 3.7) AV Cusp: 1.9 cm (1.5 - 2.6) LA Diam: 5.8 cm (2.7 - 3.8) MV EXCURSION: 22.703 mm (> 18.000) MV EF SLOPE: 114 mm/s (70 - 150) EPSS: 0.2 cm RAP: 5.00 mmHg RVSP: 50.62 mmHg FINDINGS -------- This was a technically difficult study with suboptimal views. The left ventricular size is normal. There is severe concentric left ventricular hypertrophy. Ove rall left ventricular systolic function is normal with, an EF between 55 - 60 %. The right ventricle is mildly enlarged. LA is severely dilated >40 ml/m2 The right atrium is moderately enlarged. 5.0mg of Lumason was utilized for enhancement of images Interatrial and interventricular septum intact. There is mild aortic valve sclerosis. There is no evidence of aortic regurgitation. There is no e vidence of aortic stenosis. Ammw-gx-qxpwlwro mitral regurgitation is present. Moderate tricuspid regurgitation present. There is moderate pulmonary hypertension. The right uma tricular systolic pressure, as measured by Doppler, is 50.62mmHg. There is no pulmonic regurgitation present. The aortic root size is normal. The inferior vena cava is mildly dilated. There is no pericardial effusion. CONCLUSIONS -------- 1. The left ventricular size is normal. 2. There is severe concentric left ventricular hypertrophy. 3. Overall left ventricular systolic function is normal with, an EF between 55 - 60 %. 4. The right ventricle is mildly enlarged. 5. LA is severely dilated >40 ml/m2 6. The right atrium is moderately enlarged. 7. There is mild aortic valve sclerosis. 8. Motc-bt-mqmtnwse mitral regurgitation is present. 9. Moderate tricuspid regurgitation present. 10. There is moderate pulmonary hypertension. 11. The right ventricular systolic pressure, as measured by Doppler, is 50.62mmHg. RETICLE PRINTER: Toya Corey RDCS
[2020-10-10] MEDS ORDERED: POTASSIUM CHLORIDE ER 20 MEQ TAB.ER PO STA (12:54)
[2020-10-10] MEDS ORDERED: FUROSEMIDE 10 MG/ML 4 ML VIAL IV STA (12:56)
--- NOTE | 2020-10-10 16:05 | P.PN ---
Progress Note - Text Progress Note Date: 10/10/20 Chief Complaint: Short of breath History of presenting complaint: This is a pleasant 80-year-old patient who follows with visiting physicians Dr. Minor. Patient lives at [facility]. Chronic stable medical conditions include hypertension, hyperlipidemia, diabetes, COPD, atrial fibrillation. Patient presents with worsening short of breath at least 2 weeks. Questionable mild fever. No cough. Appetite is fair. No change in bowel habits. Did have some perspiration. In the ER patient received IV Lasix 40 mg and felt better after the same. No obvious orthopnea. No chest pain. Does use a cane at her baseline Admitted with acute CHF exacerbation-given IV Lasix. COPD. Today: Laying in bed. Tired. Some wheezing and shortness of breath. Review of systems: Was done for constitutional, cardiovascular, GI, pulmonary. relevant finding as above Active Medications Acetaminophen (Acetaminophen Tab 500 Mg Tab) 500 mg PO Q6H PRN PRN Reason: Pain Albuterol/Ipratropium (Ipratropium-Albuterol 3 Ml Neb) 3 ml INHALATION RT-Q4H PRN PRN Reason: Shortness Of Breath Albuterol/Ipratropium (Ipratropium-Albuterol 3 Ml Neb) 3 ml INHALATION RT-QID [facility] Last Admin: 10/10/20 15:44 Dose: 3 ml Documented by: Apixaban (Apixaban 5 Mg Tab) 5 mg PO BID@0800,1999 [facility] Last Admin: 10/10/20 07:49 Dose: 5 mg Documented by: Atenolol (Atenolol 50 Mg Tab) 50 mg PO DAILY@0800 [facility] Last Admin: 10/10/20 07:49 Dose: 50 mg Documented by: Budesonide (Budesonide 0.5 Mg/2 Ml Nebu) 0.5 mg INHALATION RT-BID [facility] Last Admin: 10/10/20 07:48 Dose: Not Given Documented by: Hydralazine HCl (Hydralazine Hcl 50 Mg Tab) 50 mg PO TID@0800,1400,1999 [facility] Last Admin: 10/10/20 15:52 Dose: Not Given Documented by: Hydralazine HCl (Hydralazine Hcl 10 Mg Tab) 10 mg PO QID PRN PRN Reason: systolic bp over 160 Sodium Chloride (Saline 0.9%) 1,000 mls @ 20 mls/hr IV .Q24H [facility] Last Admin: 10/09/20 14:08 Dose: 20 mls/hr Documented by: Levothyroxine Sodium (Levothyroxine 75 Mcg Tab) 75 mcg PO DAILY@06 [facility] Last Admin: 10/10/20 06:29 Dose: 75 mcg Documented by: Lisinopril (Lisinopril 20 Mg Tab) 40 mg PO HS@1999 [facility] Last Admin: 10/09/20 21:26 Dose: 40 mg Documented by: Magnesium Hydroxide (Magnesium Hydroxide 2,400 Mg/10 Ml Cup) 2,400 mg PO Q72H PRN PRN Reason: Constipation Methyl Salicylate (Methyl Salicylate/Menthol Cream 5 Oz) 1 applic TOPICAL QID PRN PRN Reason: right shoulder/arm pain Naloxone HCl (Naloxone 0.4 Mg/Ml 1 Ml Vial) 0.2 mg IV Q2M PRN PRN Reason: Opioid Reversal Quetiapine Fumarate (Quetiapine 50 Mg Tab) 50 mg PO BID@ [facility] Last Admin: 10/10/20 07:43 Dose: 50 mg Documented by: Senna/Docusate Sodium (Sennosides-Docusate Sodium 1 Each Tab) 2 each PO HS@1999 [facility] Last Admin: 10/09/20 21:26 Dose: 2 each Documented by: Sertraline HCl (Sertraline 100 Mg Tab) 100 mg PO HS@1999 [facility] Last Admin: 10/09/20 21:26 Dose: 100 mg Documented by: Torsemide (Torsemide 20 Mg Tab) 40 mg PO DAILY@08 [facility] Last Admin: 10/10/20 07:43 Dose: 40 mg Documented by: Past medical history to include: COPD, dementia, diabetes-off medications, GERD, hypertension, hyperlipidemia Social history: Patient smoked on and off for many years stopped about 5 years ago. Denies alcohol. Currently at resident of [facility] Family history: Patient cannot tell Physical examination: VITAL SIGNS: 98.1, 60, 18, 128/79, 96% on 2 L GENERAL: BMI 28.6, laying in bed, tired. EYES: Pupils equal. Conjunctiva normal. HEENT: External appearance of nose and ears normal, oral cavity grossly normal. NECK: JVD unable to assess; masses not palpable. HEART: First and second heart sounds are normal; no edema. LUNGS: Respiratory rate increased; decreased breath sounds. Expiratory wheezing ABDOMEN: Soft, nontender, liver spleen not palpable, no masses palpable. PSYCH: Answering simple questions INVESTIGATIONS, reviewed in the clinical context: 2-D echocardiogram: EF 55-60% [id number] MR, moderate TR, moderate pulmonary hypertension October 10: Potassium 3.3 creatinine 0.90 proBNP 2730, pro calcitonin 0.04 WBC 8.7 hemoglobin 12.7 platelets 245 potassium 3.8 creatinine 1.01 ProBNP: 4180. Troponin I negative UA negative Coronavirus [PCF]-not detected EKG tracing personally reviewed by me-atrial fibrillation, rate of 57 Chest x-ray film personally reviewed by me-pulmonary edema, cardiomegaly Assessment and plan: -Acute congestive heart failure exacerbation, from diastolic dysfunction EF 55-60%-slow to respond IV Lasix every 12. Strict I's and O's. -COPD exacerbation in a previous smoker-slow to respond DuoNeb, inhaled steroids. 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 Add IV Solu-Medrol. Repeat chest x-ray in the morning. Follow labs.
[2020-10-10] MEDS: methylPREDNISolone SOD SUCCI 40 MG/ML 1 ML VIAL IV SCH ×2 (16:44→23:50)
[2020-10-10] MEDS: lisinopriL 20 MG TAB PO SCH (22:09)
[2020-10-10] MEDS: SENNOSIDES-DOCUSATE SODIUM 1 EACH TAB PO SCH (22:10)
[2020-10-10] MEDS: FUROSEMIDE 10 MG/ML 4 ML VIAL IV SCH (22:10)
[2020-10-10] MEDS: SERTRALINE 100 MG TAB PO SCH (22:10)
[2020-10-10] MEDS: SODIUM CHLORIDE 0.9% 1,000 ML IV SCH (23:48)
[2020-10-11] MEDS: LEVOTHYROXINE 75 MCG TAB PO SCH (06:24)
[2020-10-11] MEDS: BUDESONIDE 0.5 MG/2 ML NEBU INHALATION SCH ×2 (07:54→20:58)
[2020-10-11] MEDS: IPRATROPIUM-ALBUTEROL 3 ML NEB INHALATION SCH ×4 (07:54→20:58)
--- NOTE | 2020-10-11 07:57 | XR ---
EXAMINATION TYPE: XR chest 2V DATE OF EXAM: 10/11/2020 COMPARISON: 10/09/2020 HISTORY: Shortness of breath TECHNIQUE: Frontal and lateral views of the chest are obtained. FINDINGS: There is a suggestion of mild interstitial opacity which was seen previously and is stable . Small bilateral pleural effusions not excluded. No pneumothorax. The heart is mildly enlarged. IMPRESSION: Findings most consistent with mild CHF essentially unchanged compared to the prior study .
[2020-10-11 08:28] LABS: African American GFR (CKD) 64 (>60 ml/min/1.73 sqM); Anion Gap 8 mmol/L; Blood Urea Nitrogen 35 mg/dL (9-20); Calcium 9.5 mg/dL (8.4-10.2); Carbon Dioxide 34 mmol/L (22-30); Chloride 101 mmol/L (98-107); Glucose 128 mg/dL (74-99); Non-African American GFR(CKD) 56 (>60 ml/min/1.73 sqM); Potassium 3.9 mmol/L (3.5-5.1); Sodium 143 mmol/L (137-145)
[2020-10-11] MEDS: methylPREDNISolone SOD SUCCI 40 MG/ML 1 ML VIAL IV SCH (08:48)
[2020-10-11] MEDS: hydrALAZINE HCL 50 MG TAB PO SCH ×3 (08:49→22:03)
[2020-10-11] MEDS: FUROSEMIDE 10 MG/ML 4 ML VIAL IV SCH (08:49)
[2020-10-11] MEDS: APIXABAN 5 MG TAB PO SCH ×2 (08:50→22:03)
[2020-10-11] MEDS: atenoloL 50 MG TAB PO SCH (08:50)
[2020-10-11] MEDS: QUEtiapine 50 MG TAB PO SCH ×2 (08:52→22:02)
[2020-10-11] MEDS: SODIUM CHLORIDE 0.9% 1,000 ML IV SCH (13:30)
[2020-10-11] MEDS: predniSONE 20 MG TAB PO SCH (13:30)
[2020-10-11 14:51] VITALS: RESP 18
--- NOTE | 2020-10-11 16:52 | P.PN ---
Progress Note - Text Progress Note Date: 10/11/20 Chief Complaint: Short of breath History of presenting complaint: This is a pleasant 80-year-old patient who follows with visiting physicians Dr. Minor. Patient lives at [facility]. Chronic stable medical conditions include hypertension, hyperlipidemia, diabetes, COPD, atrial fibrillation. Patient presents with worsening short of breath at least 2 weeks. Questionable mild fever. No cough. Appetite is fair. No change in bowel habits. Did have some perspiration. In the ER patient received IV Lasix 40 mg and felt better after the same. No obvious orthopnea. No chest pain. Does use a cane at her baseline Admitted with acute CHF exacerbation-given IV Lasix. COPD exacerbation.. Today: Breathing better. Oral intake improved. Up to the bathroom. Up in a chair. Review of systems: Was done for constitutional, cardiovascular, GI, pulmonary. relevant finding as above Active Medications Acetaminophen (Acetaminophen Tab 500 Mg Tab) 500 mg PO Q6H PRN PRN Reason: Pain Albuterol/Ipratropium (Ipratropium-Albuterol 3 Ml Neb) 3 ml INHALATION RT-Q4H PRN PRN Reason: Shortness Of Breath Albuterol/Ipratropium (Ipratropium-Albuterol 3 Ml Neb) 3 ml INHALATION RT-QID REPLACED BY [facility] Last Admin: 10/11/20 15:37 Dose: 3 ml Documented by: Apixaban (Apixaban 5 Mg Tab) 5 mg PO BID@0800,2000 REPLACED BY [facility] Last Admin: 10/11/20 08:50 Dose: 5 mg Documented by: Atenolol (Atenolol 50 Mg Tab) 50 mg PO DAILY@0800 REPLACED BY [facility] Last Admin: 10/11/20 08:50 Dose: 50 mg Documented by: Budesonide (Budesonide 0.5 Mg/2 Ml Nebu) 0.5 mg INHALATION RT-BID REPLACED BY [facility] Last Admin: 10/11/20 07:54 Dose: 0.5 mg Documented by: Hydralazine HCl (Hydralazine Hcl 50 Mg Tab) 50 mg PO TID@0800,1400,2000 [facility]PLACED BY [facility] Last Admin: 10/11/20 13:31 Dose: 50 mg Documented by: Hydralazine HCl (Hydralazine Hcl 10 Mg Tab) 10 mg PO QID PRN PRN Reason: systolic bp over 160 Sodium Chloride (Saline 0.9%) 1,000 mls @ 20 mls/hr IV .Q24H REPLACED BY [facility] Last Admin: 10/11/20 13:30 Dose: 20 mls/hr Documented by: Levothyroxine Sodium (Levothyroxine 75 Mcg Tab) 75 mcg PO DAILY@06 [facility]PLACED BY [facility] Last Admin: 10/11/20 06:24 Dose: 75 mcg Documented by: Lisinopril (Lisinopril 20 Mg Tab) 40 mg PO HS@1999 REPLACED BY [facility] Last Admin: 10/10/20 22:09 Dose: 40 mg Documented by: Magnesium Hydroxide (Magnesium Hydroxide 2,400 Mg/10 Ml Cup) 2,400 mg PO Q72H PRN PRN Reason: Constipation Methyl Salicylate (Methyl Salicylate/Menthol Cream 5 Oz) 1 applic TOPICAL QID PRN PRN Reason: right shoulder/arm pain Naloxone HCl (Naloxone 0.4 Mg/Ml 1 Ml Vial) 0.2 mg IV Q2M PRN PRN Reason: Opioid Reversal Prednisone (Prednisone 20 Mg Tab) 40 mg PO DAILY REPLACED BY [facility] Last Admin: 10/11/20 13:30 Dose: 40 mg Documented by: Quetiapine Fumarate (Quetiapine 50 Mg Tab) 50 mg PO BID@ REPLACED BY [facility] Last Admin: 10/11/20 08:52 Dose: 50 mg Documented by: Senna/Docusate Sodium (Sennosides-Docusate Sodium 1 Each Tab) 2 each PO HS@1999 REPLACED BY [facility] Last Admin: 10/10/20 22:10 Dose: 2 each Documented by: Sertraline HCl (Sertraline 100 Mg Tab) 100 mg PO HS@1999 REPLACED BY [facility] Last Admin: 10/10/20 22:10 Dose: 100 mg Documented by: Torsemide (Torsemide 20 Mg Tab) 40 mg PO DAILY REPLACED BY [facility] Past medical history to include: COPD, dementia, diabetes-off medications, GERD, hypertension, hyperlipidemia Social history: Patient smoked on and off for many years stopped about 5 years ago. Denies alcohol. Currently at resident of [place] [facility] Family history: Patient cannot tell Physical examination: VITAL SIGNS: 99.4, 72, 18, 1 31 x 66, 90% on room air GENERAL: Sitting up, looking better EYES: Pupils equal. Conjunctiva normal. HEENT: External appearance of nose and ears normal, oral cavity grossly normal. NECK: JVD unable to assess; masses not palpable. HEART: First and second heart sounds are normal; no edema. LUNGS: Respiratory rate increased; decreased breath sounds. ABDOMEN: Soft, nontender, liver spleen not palpable, no masses palpable. PSYCH: AO - times three. Mood and affect normal INVESTIGATIONS, reviewed in the clinical context: October 11: Potassium 3.9 creatinine 1.21 2-D echocardiogram: EF 55-60% [id number] MR, moderate TR, moderate pulmonary hypertension October 10: Potassium 3.3 creatinine 0.90 proBNP 2730, pro calcitonin 0.04 WBC 8.7 hemoglobin 12.7 platelets 245 potassium 3.8 creatinine 1.01 ProBNP: 4180. Troponin I negative UA negative Coronavirus [PCF]-not detected EKG tracing personally reviewed by me-atrial fibrillation, rate of 57 Chest x-ray film personally reviewed by me-pulmonary edema, cardiomegaly Assessment and plan: -Acute congestive heart failure exacerbation, from diastolic dysfunction EF 55-60%-improved IV Lasix every 12. 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 IV Solu-Medrol. 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 Increase activity. Discussed with the patient and nurse. Hopefully home tomorrow. Check labs.
[2020-10-11] MEDS: lisinopriL 20 MG TAB PO SCH (22:02)
[2020-10-11] MEDS: SENNOSIDES-DOCUSATE SODIUM 1 EACH TAB PO SCH (22:02)
[2020-10-11] MEDS: SERTRALINE 100 MG TAB PO SCH (22:02)
[2020-10-12] MEDS: LEVOTHYROXINE 75 MCG TAB PO SCH (06:00)
[2020-10-12] MEDS: atenoloL 50 MG TAB PO SCH (07:17)
[2020-10-12] MEDS: QUEtiapine 50 MG TAB PO SCH (07:17)
[2020-10-12] MEDS: predniSONE 20 MG TAB PO SCH (07:17)
[2020-10-12] MEDS: hydrALAZINE HCL 50 MG TAB PO SCH ×2 (07:17→14:47)
[2020-10-12] MEDS: APIXABAN 5 MG TAB PO SCH (07:18)
[2020-10-12 07:42] LABS: African American GFR (CKD) 69 (>60 ml/min/1.73 sqM); Anion Gap 5 mmol/L; Blood Urea Nitrogen 39 mg/dL (9-20); Calcium 9.2 mg/dL (8.4-10.2); Carbon Dioxide 35 mmol/L (22-30); Chloride 99 mmol/L (98-107); Glucose 97 mg/dL (74-99); Non-African American GFR(CKD) 60 (>60 ml/min/1.73 sqM); Potassium 3.7 mmol/L (3.5-5.1); Sodium 139 mmol/L (137-145)
[2020-10-12] MEDS: IPRATROPIUM-ALBUTEROL 3 ML NEB INHALATION SCH ×2 (08:25→11:49)
[2020-10-12] MEDS: BUDESONIDE 0.5 MG/2 ML NEBU INHALATION SCH (08:25)
[2020-10-12] MEDS ORDERED: TORSEMIDE 20 MG TAB PO SCH (09:00)
[2020-10-12 10:34] VITALS: BP 169/79; TEMP 97.6
[2020-10-12 11:58] VITALS: PULSE 70
[2020-10-12] MEDS: SODIUM CHLORIDE 0.9% 1,000 ML IV SCH (14:47)
--- NOTE | 2020-10-12 17:12 | P.DS ---
Providers Date of admission: 10/10/20 13:20 Expected date of discharge: 10/12/20 Attending physician: Hi Valencia Primary care physician: Edward Minor [place] Course: Chief Complaint: Short of breath History of presenting complaint: This is a pleasant 80-year-old patient who follows with visiting physicians Dr. Minor. Patient lives at [facility]. Chronic stable medical conditions include hypertension, hyperlipidemia, diabetes, COPD, atrial fibrillation. Patient presents with worsening short of breath at least 2 weeks. Questionable mild fever. No cough. Appetite is fair. No change in bowel habits. Did have some perspiration. In the ER patient received IV Lasix 40 mg and felt better after the same. No obvious orthopnea. No chest pain. Does use a cane at her baseline Admitted with acute CHF exacerbation-given IV Lasix. COPD exacerbation.. Responded well. IV steroids given. Today: Breathing much improved. Oral intake is good. Oxygen checked on room air. Satisfactory. Discussed with the patient. Questions answered Discussion and discharge planning more than 35 minutes Past medical history to include: COPD, dementia, diabetes-off medications, GERD, hypertension, hyperlipidemia Social history: Patient smoked on and off for many years stopped about 5 years ago. Denies alcohol. Currently at [facility] Family history: Patient cannot tell Physical examination: VITAL SIGNS: 97.6, 60, 18, 169%), 92% room air GENERAL: Sitting up, comfortable EYES: Pupils equal. Conjunctiva normal. HEENT: External appearance of nose and ears normal, oral cavity grossly normal. NECK: JVD unable to assess; masses not palpable. HEART: First and second heart sounds are normal; no edema. LUNGS: Respiratory rate normal; decreased breath sounds. ABDOMEN: Soft, nontender, liver spleen not palpable, no masses palpable. PSYCH: AO - times three. Mood and affect normal INVESTIGATIONS, reviewed in the clinical context: October 12: Potassium 3.7 creatinine 1.14 October 11: Potassium 3.9 creatinine 1.21 2-D echocardiogram: EF 55-60% [id number] MR, moderate TR, moderate pulmonary hypertension October 10: Potassium 3.3 creatinine 0.90 proBNP 2730, pro calcitonin 0.04 WBC 8.7 hemoglobin 12.7 platelets 245 potassium 3.8 creatinine 1.01 ProBNP: 4180. Troponin I negative UA negative Coronavirus [PCF]-not detected EKG tracing personally reviewed by me-atrial fibrillation, rate of 57 Chest x-ray film personally reviewed by me-pulmonary edema, cardiomegaly Assessment and plan: -Acute congestive heart failure exacerbation, from diastolic dysfunction EF 55-60%-improved IV Lasix every 12. 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 IV Solu-Medrol. 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 Follow clinically -Moderate mitral and tricuspid regurgitation Follow clinically Disposition: Home Patient Condition at Discharge: Stable Plan - Discharge Summary Discharge Rx Participant: Yes New Discharge Prescriptions: New predniSONE 0 mg PO DIRECTED #10 tab Budesonide-Formot 160-4.5 Mcg [Symbicort 160-4.5 Mcg Inhaler] 1 puff INHALATION BID #1 inhaler Psyllium Husk (with Sugar) [Metamucil Powder] 0 gm PO DAILY #30 gm Continue Sertraline [Zoloft] 100 mg PO HS@1999 Sennosides-Docusate Sodium [Senokot-S] 2 tab PO HS@1999 Ipratropium-Albuterol Nebulize [Duoneb 0.5 mg-3 mg/3 ml Soln] 3 ml INHALATION RT-Q4H PRN PRN Reason: Shortness Of Breath Acetaminophen Tab [Tylenol] 500 mg PO Q6H PRN PRN Reason: Pain Torsemide [Demadex] 40 mg PO DAILY@0800 atenoloL [Tenormin] 50 mg PO DAILY@0800 hydrALAZINE HCL [Apresoline] 50 mg PO TID@0800,1400,1999 Apixaban [Eliquis] 5 mg PO BID@0800,1999 Magnesium Hydroxide [Milk of Magnesia] 2,400 mg PO Q72H PRN PRN Reason: Constipation QUEtiapine [SEROquel] 50 mg PO BID@0800,2000 lisinopriL 40 mg PO HS@2000 Levothyroxine Sodium [Synthroid] 75 mcg PO DAILY@0600 Menthol [Biofreeze] 1 applic TOPICAL QID PRN PRN Reason: right shoulder/arm pain Discontinued diphenhydrAMINE [Benadryl] 25 mg PO TID PRN #15 capsule PRN Reason: Itching hydrALAZINE HCL 10 mg PO QID PRN PRN Reason: systolic bp over 160 Discharge Medication List Ipratropium-Albuterol Nebulize [Duoneb 0.5 mg-3 mg/3 ml Soln] 3 ml INHALATION RT-Q4H PRN 07/18/16 [History] Sennosides-Docusate Sodium [Senokot-S] 2 tab PO HS@199907/18/16 [History] Sertraline [Zoloft] 100 mg PO HS@199907/18/16 [History] Acetaminophen Tab [Tylenol] 500 mg PO Q6H PRN 03/15/18 [History] Torsemide [Demadex] 40 mg PO DAILY@0812/24/19 [History] atenoloL [Tenormin] 50 mg PO DAILY@0812/24/19 [History] Apixaban [Eliquis] 5 mg PO BID@0800,199910/09/20 [History] Levothyroxine Sodium [Synthroid] 75 mcg PO DAILY@0610/09/20 [History] Magnesium Hydroxide [Milk of Magnesia] 2,400 mg PO Q72H PRN 10/09/20 [History] Menthol [Biofreeze] 1 applic TOPICAL QID PRN 10/09/20 [History] QUEtiapine [SEROquel] 50 mg PO BID@0800,199910/09/20 [History] hydrALAZINE HCL [Apresoline] 50 mg PO TID@0800,1400,199910/09/20 [History] lisinopriL 40 mg PO HS@199910/09/20 [History] Budesonide-Formot 160-4.5 Mcg [Symbicort 160-4.5 Mcg Inhaler] 1 puff INHALATION BID #1 inhaler 10/12/20 [Rx] Psyllium Husk (with Sugar) [Metamucil Powder] 0 gm PO DAILY #30 gm 10/12/20 [Rx] predniSONE 0 mg PO DIRECTED #10 tab 10/12/20 [Rx] Follow up Appointment(s)/Referral(s): Edward Minor MD [Primary Care Provider] - 1-2 days Discharge Disposition: HOME SELF-CARE
== END 2020-10-12 16:30 | disposition home or self-care (01) | DRG 292 ==
LOC: EC 11:06 → 1SOBS 13:12 → 4SSUR 20:46 → OBSVTOIN 10-10 13:20 → 4SSUR 10-10 18:05
PROVIDERS: ADMIT Hospitalist; ATTEND Hospitalist
DX: I11.0 Hypertensive heart disease with heart failure (principal); J44.1 Chronic obstructive pulmonary disease with (acute) exacerbation; I48.19 Other persistent atrial fibrillation; I50.33 Acute on chronic diastolic (congestive) heart failure; Z79.01 Long term (current) use of anticoagulants; Z79.890 Hormone replacement therapy; R09.02 Hypoxemia; Z87.891 Personal history of nicotine dependence; E11.9 Type 2 diabetes mellitus without complications; E78.5 Hyperlipidemia, unspecified; F03.90 Unspecified dementia, unspecified severity, without behavioral disturbance, psychotic disturbance, mood disturbance, and anxiety; E03.9 Hypothyroidism, unspecified; Z20.822 Contact with and (suspected) exposure to COVID-19; F32.9 Major depressive disorder, single episode, unspecified; I27.29 Other secondary pulmonary hypertension; I08.1 Rheumatic disorders of both mitral and tricuspid valves; K21.9 Gastro-esophageal reflux disease without esophagitis; F41.9 Anxiety disorder, unspecified
CPT/HCPCS: 36415; 71046; 80048; 80053; 81003; 83605; 83735; 83880; 84145; 84484; 85025; 85379; 85610; 85730; 87635; 93005; 93306; 94640; 94760; 99291

== ENCOUNTER 2021-06-25 09:39 | Inpatient (IN) | payer MEDICARE, OTHER ==
[2021-06-25] MEDS ORDERED: SODIUM CHLORIDE 0.9% 500 ML 500 ML IV ONE (09:52)
--- NOTE | 2021-06-25 10:04 | ED ---
General Adult HPI - General Chief complaint: Altered Mental Status Stated complaint: AMS Time Seen by Provider: 06/25/21 09:39 Source: patient, RN notes reviewed, old records reviewed Mode of arrival: EMS Limitations: no limitations - History of Present Illness Initial comments: This is an 81-year-old male who presents emergency Department for altered mental status from [facility]. Patient went to breakfast this morning ate breakfast and acted normally. Patient is normally alert and oriented 4. Staff noted about 45 minutes prior to arrival that he was altered and not able to answer questions about the month year and where he was. Last known normal per staff was at 8:30 AM. EMS arrived on scene and they stated he was still altered and they brought him into the emergency department. EMS believe in route to the hospital patient became alert bit more responsive but still was confused. Patient himself has no complaints and does not know why is here he does know he is in the hospital but has no idea what month or year it is. No family or caregivers are with the patient to there is no further history available. - Related Data Home Medications Medication Instructions Recorded Confirmed Ipratropium-Albuterol Nebulize 3 ml INHALATION RT-Q4H PRN 07/18/16 06/25/21 [Duoneb 0.5 mg-3 mg/3 ml Soln] Sennosides-Docusate Sodium 2 tab PO HS@199907/18/16 06/25/21 [Senokot-S] Sertraline [Zoloft] 100 mg PO HS@199907/18/16 06/25/21 Acetaminophen Tab [Tylenol] 500 mg PO Q6H PRN 03/15/18 06/25/21 atenoloL [Tenormin] 50 mg PO DAILY@79912/24/19 06/25/21 Apixaban [Eliquis] 5 mg PO BID@799,199910/09/20 06/25/21 Levothyroxine Sodium [Synthroid] 75 mcg PO DAILY@0610/09/20 06/25/21 Magnesium Hydroxide [Milk of 2,400 mg PO Q72H PRN 10/09/20 06/25/21 Magnesia] Menthol [Biofreeze] 1 applic TOPICAL QID PRN 10/09/20 06/25/21 QUEtiapine [SEROquel] 50 mg PO BID@08,199910/09/20 06/25/21 hydrALAZINE HCL [Apresoline] 50 mg PO TID@0800,1400,199910/09/20 06/25/21 lisinopriL 40 mg PO HS@199910/09/20 06/25/21 Isosorbide Mononitrate ER [Imdur] 60 mg PO DAILY@0800 06/25/21 06/25/21 Spironolactone-Hctz 25-25Mg 2 tab PO DAILY@79906/25/21 06/25/21 [Aldactazide 25-25Mg] diphenhydrAMINE [Benadryl] 25 mg PO TID PRN 06/25/21 06/25/21 hydrALAZINE HCL 10 mg PO QID PRN 06/25/21 06/25/21 Allergies Allergy/AdvReac Type Severity Reaction Status Date / Time No Known Allergies Allergy Verified 06/25/21 10:36 Review of Systems ROS Statement: Those systems with pertinent positive or pertinent negative responses have been documented in the HPI. ROS Other: All systems not noted in ROS Statement are negative. Past Medical History Past Medical History: Asthma, COPD, Dementia, Diabetes Mellitus, GERD/Reflux, Hyperlipidemia, Hypertension Additional Past Medical History / Comment(s): previous oral rx for diabetes-none currently History of Any Multi-Drug Resistant Organisms: None Reported Past Surgical History: No Surgical Hx Reported Additional Past Anesthesia/Blood Transfusion Reaction / Comment(s): no hx at [place] Past Psychological History: Anxiety, Depression Smoking Status: Former smoker Past Alcohol Use History: None Reported Past Drug Use History: None Reported - Past Family History Mother Family Medical History: Unable to Obtain General Exam - General Exam Comments Initial Comments: GENERAL: Patient is well-developed and well-nourished. Patient is nontoxic and well- hydrated and is in no acute distress. ENT: Neck is soft and supple. No significant lymphadenopathy is noted. Oropharynx is clear. Moist mucous membranes. Neck has full range of motion without eliciting any pain. EYES: The sclera were anicteric and conjunctiva were pink and moist. Extraocular movements were intact and pupils were equal round and reactive to light. Eyelids were unremarkable. PULMONARY: Unlabored respirations. Good breath sounds bilaterally. No audible rales rhonchi or wheezing was noted. CARDIOVASCULAR: Irregular rate and rhythm. ABDOMEN: Soft and nontender with normal bowel sounds. SKIN: Skin is clear with no lesions or rashes and otherwise unremarkable. NEUROLOGIC: Patient is alert and oriented 2. Cranial nerves II through XII are grossly intact. Motor and sensory are also intact. Normal speech, volume and content. Symmetrical smile. MUSCULOSKELETAL: Normal extremities with adequate strength and full range of motion. No lower extremity swelling or edema. No calf tenderness. LYMPHATICS: No significant lymphadenopathy is noted PSYCHIATRIC: Unable to assess at this time Limitations: no limitations Course Vital Signs 06/25/21 06/25/21 06/25/21 09:51 10:00 10:15 Temperature 98.1 F 97.6 F 97.8 F Pulse Rate 48 L 60 56 L Respiratory 16 16 16 Rate Blood Pressure 93/45 109/58 110/57 O2 Sat by Pulse 96 99 99 Oximetry 06/25/21 06/25/21 06/25/21 10:30 10:45 11:15 Temperature 97.6 F 97.4 F L 97.6 F Pulse Rate 54 L 58 L 53 L Respiratory 14 16 14 Rate Blood Pressure 98/48 114/58 109/65 O2 Sat by Pulse 99 99 97 Oximetry 06/25/21 06/25/21 06/25/21 11:30 11:45 12:08 Temperature 97.7 F 97.8 F 97.6 F Pulse Rate 56 L 54 L 60 Respiratory 12 14 14 Rate Blood Pressure 132/64 110/74 97/54 O2 Sat by Pulse 98 98 99 Oximetry 06/25/21 06/25/21 12:24 12:49 Temperature 97.8 F 98.1 F Pulse Rate 60 61 Respiratory 137 H 14 Rate Blood Pressure 137/107 107/55 O2 Sat by Pulse 96 97 Oximetry Medical Decision Making - Medical Decision Making EKG shows atrial fibrillation at 51 bpm QRS is 101 QT interval is 498 QTC is 475 to our S is 101 patient also has multiple PVCs. I received a phone call [phone] from radiology stating that this patient appeared to have an acute stroke on the CAT scan at this point time a code stroke was called overhead. CT of the brain shows a right occipital infarct. 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 I spoke with Dr. Toledo he agreed to admit the patient and the patient I consult neurology. I spoke with the neurointerventionalist he agreed that no TPA was indicated since the patient had no observable findings and the fact that he was beyond the 3 hour window an 81 years of age. - Lab Data Result diagrams: 06/25/21 09:54 06/25/21 09:54 Lab Results 06/25/21 06/25/21 06/25/21 Range/Units 09:54 09:54 09:54 WBC 8.4 (3.8-10.6) k/uL RBC 4.17 L (4.30-5.90) m/uL Hgb 13.4 (13.0-17.5) gm/dL Hct 42.1 (39.0-53.0) % MCV 100.9 H (80.0-100.0) fL MCH 32.1 (25.0-35.0) pg MCHC 31.9 (31.0-37.0) g/dL RDW 12.6 (11.5-15.5) % Plt Count 256 (150-450) k/uL MPV 7.8 Neutrophils % 69 % Lymphocytes % 17 % Monocytes % 8 % Eosinophils % 5 % Basophils % 1 % Neutrophils # 5.8 (1.3-7.7) k/uL Lymphocytes # 1.4 (1.0-4.8) k/uL Monocytes # 0.6 (0-1.0) k/uL Eosinophils # 0.4 (0-0.7) k/uL Basophils # 0.1 (0-0.2) k/uL PT 11.5 (9.0-12.0) sec INR 1.1 (<1.2) APTT 27.1 (22.0-30.0) sec Sodium 139 (137-145) mmol/L Potassium 4.0 (3.5-5.1) mmol/L Chloride 106 (98-107) mmol/L Carbon Dioxide 28 (22-30) mmol/L Anion Gap 5 mmol/L BUN 34 H (9-20) mg/dL Creatinine 1.62 H (0.66-1.25) mg/dL Est GFR (CKD-EPI)AfAm 45 (>60 ml/min/1.73 sqM) Est GFR (CKD-EPI)NonAf 39 (>60 ml/min/1.73 sqM) Glucose 129 H (74-99) mg/dL POC Glucose (mg/dL) (75-99) mg/dL POC Glu Making Department Preparer ID Calcium 8.8 (8.4-10.2) mg/dL Total Bilirubin 0.6 (0.2-1.3) mg/dL AST 20 (17-59) U/L ALT 14 (4-49) U/L Alkaline Phosphatase 56 (38-126) U/L Troponin I (0.000-0.034) ng/mL Total Protein 5.9 L (6.3-8.2) g/dL Albumin 3.2 L (3.5-5.0) g/dL Urine Color Urine Appearance (Clear) Urine pH (5.0-8.0) Ur Specific [place] (1.001-1.035) Urine Protein (Negative) Urine Glucose (UA) (Negative) Urine Ketones (Negative) Urine Blood (Negative) Urine Nitrite (Negative) Urine Bilirubin (Negative) Urine Urobilinogen (<2.0) mg/dL Ur Leukocyte Esterase (Negative) Urine RBC (0-5) /hpf Urine WBC (0-5) /hpf Ur Squamous Epith Cells (0-4) /hpf Hyaline Casts (0-2) /lpf Urine Mucus (None) /hpf Urine Opiates Screen (NotDetected) Ur Oxycodone Screen (NotDetected) Urine Methadone Screen (NotDetected) Ur Propoxyphene Screen (NotDetected) Ur Barbiturates Screen (NotDetected) U Tricyclic Antidepress (NotDetected) Ur Phencyclidine Scrn (NotDetected) Ur Amphetamines Screen (NotDetected) U Methamphetamines Scrn (NotDetected) U Benzodiazepines Scrn (NotDetected) Urine Cocaine Screen (NotDetected) U Marijuana (THC) Screen (NotDetected) Coronavirus (PCR) (Not Detectd) 06/25/21 06/25/21 06/25/21 Range/Units 09:54 10:04 10:09 WBC (3.8-10.6) k/uL RBC (4.30-5.90) m/uL Hgb (13.0-17.5) gm/dL Hct (39.0-53.0) % MCV (80.0-100.0) fL MCH (25.0-35.0) pg MCHC (31.0-37.0) g/dL RDW (11.5-15.5) % Plt Count (150-450) k/uL MPV Neutrophils % % Lymphocytes % % Monocytes % % Eosinophils % % Basophils % % Neutrophils # (1.3-7.7) k/uL Lymphocytes # (1.0-4.8) k/uL Monocytes # (0-1.0) k/uL Eosinophils # (0-0.7) k/uL Basophils # (0-0.2) k/uL PT (9.0-12.0) sec INR (<1.2) APTT (22.0-30.0) sec Sodium (137-145) mmol/L Potassium (3.5-5.1) mmol/L Chloride (98-107) mmol/L Carbon Dioxide (22-30) mmol/L Anion Gap mmol/L BUN (9-20) mg/dL Creatinine (0.66-1.25) mg/dL Est GFR (CKD-EPI)AfAm (>60 ml/min/1.73 sqM) Est GFR (CKD-EPI)NonAf (>60 ml/min/1.73 sqM) Glucose (74-99) mg/dL POC Glucose (mg/dL) (75-99) mg/dL POC Glu Making Department Preparer ID Calcium (8.4-10.2) mg/dL Total Bilirubin (0.2-1.3) mg/dL AST (17-59) U/L ALT (4-49) U/L Alkaline Phosphatase (38-126) U/L Troponin I 0.014 (0.000-0.034) ng/mL Total Protein (6.3-8.2) g/dL Albumin (3.5-5.0) g/dL Urine Color Yellow Urine Appearance Clear (Clear) Urine pH 6.5 (5.0-8.0) Ur Specific [place] 1.011 (1.001-1.035) Urine Protein Negative (Negative) Urine Glucose (UA) Negative (Negative) Urine Ketones Negative (Negative) Urine Blood Trace H (Negative) Urine Nitrite Negative (Negative) Urine Bilirubin Negative (Negative) Urine Urobilinogen <2.0 (<2.0) mg/dL Ur Leukocyte Esterase Negative (Negative) Urine RBC 7 H (0-5) /hpf Urine WBC 1 (0-5) /hpf Ur Squamous Epith Cells <1 (0-4) /hpf Hyaline Casts 1 (0-2) /lpf Urine Mucus Rare H (None) /hpf Urine Opiates Screen Not Detected (NotDetected) Ur Oxycodone Screen Not Detected (NotDetected) Urine Methadone Screen Not Detected (NotDetected) Ur Propoxyphene Screen Not Detected (NotDetected) Ur Barbiturates Screen Not Detected (NotDetected) U Tricyclic Antidepress Detected H (NotDetected) Ur Phencyclidine Scrn Not Detected (NotDetected) Ur Amphetamines Screen Not Detected (NotDetected) U Methamphetamines Scrn Not Detected (NotDetected) U Benzodiazepines Scrn Not Detected (NotDetected) Urine Cocaine Screen Not Detected (NotDetected) U Marijuana (THC) Screen Not Detected (NotDetected) Coronavirus (PCR) Not Detected (Not Detectd) 06/25/21 Range/Units 10:33 WBC (3.8-10.6) k/uL RBC (4.30-5.90) m/uL Hgb (13.0-17.5) gm/dL Hct (39.0-53.0) % MCV (80.0-100.0) fL MCH (25.0-35.0) pg MCHC (31.0-37.0) g/dL RDW (11.5-15.5) % Plt Count (150-450) k/uL MPV Neutrophils % % Lymphocytes % % Monocytes % % Eosinophils % % Basophils % % Neutrophils # (1.3-7.7) k/uL Lymphocytes # (1.0-4.8) k/uL Monocytes # (0-1.0) k/uL Eosinophils # (0-0.7) k/uL Basophils # (0-0.2) k/uL PT (9.0-12.0) sec INR (<1.2) APTT (22.0-30.0) sec Sodium (137-145) mmol/L Potassium (3.5-5.1) mmol/L Chloride (98-107) mmol/L Carbon Dioxide (22-30) mmol/L Anion Gap mmol/L BUN (9-20) mg/dL Creatinine (0.66-1.25) mg/dL Est GFR (CKD-EPI)AfAm (>60 ml/min/1.73 sqM) Est GFR (CKD-EPI)NonAf (>60 ml/min/1.73 sqM) Glucose (74-99) mg/dL POC Glucose (mg/dL) 85 (75-99) mg/dL POC Glu Making Department Preparer ID Aida Torres Calcium (8.4-10.2) mg/dL Total Bilirubin (0.2-1.3) mg/dL AST (17-59) U/L ALT (4-49) U/L Alkaline Phosphatase (38-126) U/L Troponin I (0.000-0.034) ng/mL Total Protein (6.3-8.2) g/dL Albumin (3.5-5.0) g/dL Urine Color Urine Appearance (Clear) Urine pH (5.0-8.0) Ur Specific [place] (1.001-1.035) Urine Protein (Negative) Urine Glucose (UA) (Negative) Urine Ketones (Negative) Urine Blood (Negative) Urine Nitrite (Negative) Urine Bilirubin (Negative) Urine Urobilinogen (<2.0) mg/dL Ur Leukocyte Esterase (Negative) Urine RBC (0-5) /hpf Urine WBC (0-5) /hpf Ur Squamous Epith Cells (0-4) /hpf Hyaline Casts (0-2) /lpf Urine Mucus (None) /hpf Urine Opiates Screen (NotDetected) Ur Oxycodone Screen (NotDetected) Urine Methadone Screen (NotDetected) Ur Propoxyphene Screen (NotDetected) Ur Barbiturates Screen (NotDetected) U Tricyclic Antidepress (NotDetected) Ur Phencyclidine Scrn (NotDetected) Ur Amphetamines Screen (NotDetected) U Methamphetamines Scrn (NotDetected) U Benzodiazepines Scrn (NotDetected) Urine Cocaine Screen (NotDetected) U Marijuana (THC) Screen (NotDetected) Coronavirus (PCR) (Not Detectd) Critical Care Time Critical Care Time: Yes Total Critical Care Time: 35 Disposition Clinical Impression: CVA (cerebral vascular accident) Disposition: ADMITTED IP TO THIS HOSP Referrals: Nonstaff,Physician [Primary Care Provider] - 1-2 days Time of Disposition: 13:51
[2021-06-25 10:07] LABS: Basophils # (A) 0.1 k/uL (0-0.2); Basophils % (A) 1 %; Eosinophils # (A) 0.4 k/uL (0-0.7); Eosinophils % (A) 5 %; HCT 42.1 % (39.0-53.0); HGB 13.4 gm/dL (13.0-17.5); Lymphocytes # (A) 1.4 k/uL (1.0-4.8); Lymphocytes % (A) 17 %; MCH 32.1 pg (25.0-35.0); MCHC 31.9 g/dL (31.0-37.0); MCV 100.9 fL (80.0-100.0); Mean Platelet Volume 7.8; Monocytes # (A) 0.6 k/uL (0-1.0); Monocytes % (A) 8 %; Neutrophils # (A) 5.8 k/uL (1.3-7.7); Neutrophils % (A) 69 %; Platelet Count 256 k/uL (150-450); RBC 4.17 m/uL (4.30-5.90); RDW 12.6 % (11.5-15.5); WBC 8.4 k/uL (3.8-10.6)
[2021-06-25 10:17] LABS: INR 1.1 (<1.2); Partial Thromboplastin Time 27.1 sec (22.0-30.0); Prothrombin Time 11.5 sec (9.0-12.0)
[2021-06-25 10:24] LABS: Albumin 3.2 g/dL (3.5-5.0); Calcium 8.8 mg/dL (8.4-10.2); Total Bilirubin 0.6 mg/dL (0.2-1.3); Total Protein 5.9 g/dL (6.3-8.2)
[2021-06-25 10:35] LABS: Glucose,Whole Blood 85 mg/dL (75-99)
[2021-06-25 11:05] LABS: Appearance,Urine Clear (Clear); Bilirubin,Urine Negative (Negative); Blood,Urine Trace (Negative); Color,Urine Yellow; Glucose,Urine (UA) Negative (Negative); Hyaline Casts,Urine 1 /lpf (0-2); Ketones,Urine Negative (Negative); Leukocyte Esterase,Urine Negative (Negative); Mucus,Urine Rare /hpf; Nitrite,Urine Negative (Negative); PH, Urine 6.5 (5.0-8.0); Protein,Urine Negative (Negative); RBC,Urine 7 /hpf (0-5); Specific Gravity,Urine 1.011 (1.001-1.035); Squamous Epithelial Cell,Urine <1 /hpf (0-4); Urobilinogen,Urine <2.0 mg/dL (<2.0); WBC,Urine 1 /hpf (0-5)
[2021-06-25 11:18] LABS: Amphetamine Screen,Urine Not Detected (NotDetected); Barbiturate Screen,Urine Not Detected (NotDetected); Benzodiazepines Screen,Urine Not Detected (NotDetected); Cocaine Screen,Urine Not Detected (NotDetected); Methadone Screen, Urine Not Detected (NotDetected); Opiate Screen,Urine Not Detected (NotDetected); Oxycodone Screen, Urine Not Detected (NotDetected); Phencyclidine Screen,Urine Not Detected (NotDetected); Tricyclic Antidepressant,Urine Detected (NotDetected); Urn Cannabinoid Scrn Not Detected (NotDetected)
--- NOTE | 2021-06-25 11:29 | XR ---
EXAMINATION TYPE: XR chest 2V DATE OF EXAM: 06/25/2021 COMPARISON: 10/11/2020 TECHNIQUE: PA and lateral views submitted. HISTORY: Altered mental status FINDINGS: Heart size is enlarged. Coarsened interstitium. No sizable pleural effusion or pneumothorax. Arthropa thy of the shoulders. Atherosclerotic change aorta. IMPRESSION: 1. Cardiomegaly correlate for mild chronic interstitial lung disease or venous congestion.
--- NOTE | 2021-06-25 11:37 | CT ---
EXAMINATION TYPE: CT brain wo con DATE OF EXAM: 06/25/2021 COMPARISON: CT dated 04/24/2016 HISTORY: AMS CT DLP: 1099.4 mGycm Automated exposure control for dose reduction was used. TECHNIQUE: Multiplanar CT scan of the brain without IV contrast administration. FINDINGS: Newly seen medial occipital cortical and subcortical hypodensity likely representing acute to subacut e infarct. This is in the territory of the right FLIGHT NURSE. No significant hemorrhagic transformation. Ques tionable tiny infarct of indeterminate age in the right lentiform nucleus. Generalized age-related vo lume loss changes. Scattered arterial atherosclerotic calcifications. No acute intracranial hemorrhage. No midline shift or herniation. Unremarkable basal cisterns, sella and CP angles. No gross space-occupying lesion. Unremarkable orbits. Left maxillary sinus polyp/reten tion cyst. Clear mastoid air cells. Unremarkable calvarial bones. IMPRESSION: Right medial occipital acute to subacute infarct in the right FLIGHT NURSE territory as described above. Recom mend clinical correlation and further workup. Further neurology consultation can be considered. Findings were discussed with the referring physician at 11:30 AM on 06/25/2021
--- NOTE | 2021-06-25 12:48 | CT ---
EXAMINATION TYPE: CODE STROKE: CTA head neck DATE OF EXAM: 06/25/2021 HISTORY: Occipital infarct. COMPARISON: CT head performed earlier same day CT DLP: 1003.2 mGycm. Automated Exposure Control for Dose Reduction was Utilized. TECHNIQUE: CTA scan of the neck is performed with IV Contrast, patient injected with 65 mL of Isovue 370, axial images are obtained, coronal and sagittal reformatted images are reviewed. 3D reconstruct ed images are created on an independent workstation and reviewed. FINDINGS: Suboptimal CTA with slightly delayed images, venous contamination and artifactual images. Scattered a rterial atherosclerotic calcification and tortuosity. About 40% stenosis of the most proximal portion of the right internal carotid artery yet patent distally. Severe stenosis of the P1 and P2 segments of the left [employer] yet patent distally. There is also severe stenosis of the most proximal portion of th e right [employer] with reduced caliber and mild opacification distally. At least 60% stenosis of the most i nferior aspect of the basilar artery yet patent distally. Irregularity and mild stenosis of the M1 segment of the right MCA as well as M1 and M2 segments of th e left MCA. No other areas of significant stenosis or occlusion in the visualized head or neck arteri es with the limitation of this suboptimal CTA. Patent major intracranial vessels and major neck vesse ls. Redemonstration of the previously described right medial occipital acute to subacute infarcts. CO PD changes are seen in the visualized upper lung. Degenerative changes of the cervical spine with spi nal canal stenosis at C3-4 level. IMPRESSION: Suboptimal CTA as detailed above. Severe stenosis of the P1 segment of the right [employer] as well as P1 an d P2 segments of the left [employer] with at least 60% focal stenosis of the inferior aspect of the basilar artery as detailed above. This could be the underlying etiology for the right [employer] territory acute to subacute infarct. Recommend also correlation with echocardiographic results to rule out embolic etiol ogy. Other incidental findings as described above.
[2021-06-25] MEDS ORDERED: ASPIRIN 325 MG TAB PO STA (13:51)
[2021-06-25] MEDS: ASPIRIN 325 MG TAB PO SCH (14:57)
[2021-06-25 15:58] LABS: Glucose,Whole Blood 90 mg/dL (75-99)
[2021-06-25] MEDS ORDERED: MAGNESIUM HYDROXIDE 2,400 MG/10 ML CUP PO PRN (16:26)
[2021-06-25] MEDS ORDERED: NON FORMULARY DRUG (Menthol [Biofreeze] 89 ML Gel..Ml.) TOPICAL PRN (16:26)
[2021-06-25] MEDS ORDERED: IPRATROPIUM-ALBUTEROL 3 ML NEB INHALATION PRN (16:26)
[2021-06-25] MEDS ORDERED: hydrALAZINE HCL 10 MG TAB PO PRN (16:26)
--- NOTE | 2021-06-25 17:39 | HP ---
HISTORY AND PHYSICAL DATE OF SERVICE: 06/25/2021 CHIEF COMPLAINT: Change in mental status. HISTORY OF PRESENT ILLNESS: This 81-year-old gentleman with a past medical history of multiple medical problems, including atrial fibrillation, asthma, COPD, CVA, TIA, being followed in his [facility] home, was admitted with change in mental status. Patient is confused. The patient is unable to give any coherent history. Evaluation in the ER showed a right medial occipital subacute infarct in the right posterior cerebral artery territory. STROKE CODE was called. Patient was apparently out of the window for tPA. The patient was admitted for further evaluation and treatment. The patient is unable to provide a coherent history. Most of the history is taken from my discussion in the ER, review of the chart and discussion with staff. PAST MEDICAL HISTORY: Atrial ablation, CHF, COPD. MEDICATIONS: Home medications are reviewed and include lisinopril, Zoloft, Senokot, hydralazine, Benadryl. Doses and other medications are reviewed. ALLERGIES: NONE. Family history, social history, review of systems could not be taken because of the patient's change in mental status. PHYSICAL EXAMINATION: Pulse 54, blood pressure 117/60, respirations 16, pulse ox 98% on 2 L. HEENT: Conjunctivae normal. CARDIOVASCULAR: S1, S2 muffled. RESPIRATION: Breath sounds diminished at the bases. A few scattered rhonchi. ABDOMEN: Soft, nontender. LEGS: No edema. No swelling. NERVOUS SYSTEM: Diffusely weak. LABS: WBC 8.4, hemoglobin 13.4. Creatinine is 1.62. ASSESSMENT: 1. Acute right occipital lobe infarct. 2. Atrial fibrillation. 3. Chronic obstructive pulmonary disease. 4. History of congestive heart failure. 5. Dementia. 6. Diabetes mellitus, type 2. RECOMMENDATIONS AND DISCUSSION: In this 81-year-old gentleman who presented with multiple complex medical issues, at this time I recommend to continue the current medication, neurology consultation. Complete neurovascular workup. Antiplatelet agents. Resume the home medications. DVT prophylaxis. PT/OT evaluation. Prognosis guarded. Speech pathology evaluation. Further recommendations to follow. MMODL / IJN: [id number] /
--- NOTE | 2021-06-25 19:57 | US ---
EXAMINATION TYPE: US carotid duplex BILAT DATE OF EXAM: 06/25/2021 COMPARISON: CTA 06/25/21 CLINICAL HISTORY: stroke. EXAM MEASUREMENTS: RIGHT: Peak Systolic Velocity (PSV) cm/sec ----- Right CCA: 73.9 ----- Right ICA: 122.6 ----- Right ECA: 174.0 ICA/CCA ratio: 1.7 RIGHT: End Diastole cm/sec ----- Right CCA: 15.7 ----- Right ICA: 24.1 ----- Right ECA: 11.4 LEFT: Peak Systolic Velocity (PSV) cm/sec ----- Left CCA: 137.1 ----- Left ICA: 143.6 ----- Left ECA: 158.6 ICA/CCA ratio: 1.0 LEFT: End Diastole cm/sec ----- Left CCA: 22.5 ----- Left ICA: 28.9 ----- Left ECA: 36.0 VERTEBRALS (direction of flow): Right Vertebral: Antegrade Left Vertebral: Antegrade Rhythm: Arrhythmia Hard and soft plaque noted within bilateral carotid arteries. Elevated velocities noted within the bi lateral external carotid arteries as well as the left carotid artery. IMPRESSION: 1. 50 to 69% stenosis of the left carotid bifurcation by peak systolic systolic velocity. 2. Less than 50% stenosis of the right bifurcation. Criteria for Assigning % of Stenosis / Diameter reduction (Estimation based on the indirect measurements of the internal carotid artery velocities (ICA PSV). 1. Normal (no stenosis)=ICA PSV < 125 cm/s: ratio < 2.0: ICA EDV<40 cm/s. 2. Less than 50% stenosis=ICA PSV < 125 cm/s: ratio < 2.0: ICA EDV<40 cm/s. 3. 50 to 69% stenosis=ICA PSV of 125 to 230 cm/s: ration 2.0 ? 4.0: ICA EDV 40-100 cm/s. 4. Greater than 70% stenosis to near occlusion= ICA PSV > 230 cm/s: ratio > 4.0: ICA EDV > 100 cm/s. 5. Near occlusion= ICA PSV velocities may be low or undetectable: variable ratio and ICA EDV. 6. Total occlusion=unable to detect flow. Fermin
[2021-06-25] MEDS ORDERED: SERTRALINE 100 MG TAB PO SCH (20:00)
[2021-06-25] MEDS ORDERED: SENNOSIDES-DOCUSATE SODIUM 1 EACH TAB PO SCH (20:00)
[2021-06-25] MEDS ORDERED: lisinopriL 20 MG TAB PO SCH (20:00)
[2021-06-25] MEDS: HEPARIN SODIUM,PORCINE/PF 5,000 UNIT/0.5 ML SYRINGE SQ SCH (20:47)
[2021-06-25] MEDS: QUEtiapine 50 MG TAB PO SCH (20:47)
[2021-06-25 20:52] LABS: Glucose,Whole Blood 94 mg/dL (75-99)
[2021-06-25] MEDS ORDERED: ATORVASTATIN 40 MG TAB PO SCH (21:00)
[2021-06-26] MEDS ORDERED: LEVOTHYROXINE 75 MCG TAB PO SCH (06:00)
[2021-06-26 06:14] LABS: Glucose,Whole Blood 138 mg/dL (75-99)
[2021-06-26 07:30] LABS: Basophils % (A) 0 %; Eosinophils # (A) 0.3 k/uL (0-0.7); Eosinophils % (A) 4 %; HCT 45.5 % (39.0-53.0); Hypochromasia Slight; Lymphocytes # (A) 1.3 k/uL (1.0-4.8); Lymphocytes % (A) 15 %; MCH 31.7 pg (25.0-35.0); MCHC 30.7 g/dL (31.0-37.0); MCV 103.1 fL (80.0-100.0); Macrocytosis Slight; Mean Platelet Volume 8.1; Monocytes # (A) 0.6 k/uL (0-1.0); Monocytes % (A) 7 %; Neutrophils # (A) 5.8 k/uL (1.3-7.7); Neutrophils % (A) 71 %; Platelet Count 270 k/uL (150-450); RBC 4.42 m/uL (4.30-5.90); RDW 12.5 % (11.5-15.5); WBC 8.1 k/uL (3.8-10.6)
[2021-06-26 07:44] LABS: ALT 13 U/L (4-49); AST 23 U/L (17-59); African American GFR (CKD) 61 (>60 ml/min/1.73 sqM); Albumin 3.6 g/dL (3.5-5.0); Alkaline Phosphatase 59 U/L (38-126); Anion Gap 4 mmol/L; Blood Urea Nitrogen 28 mg/dL (9-20); Calcium 9.1 mg/dL (8.4-10.2); Carbon Dioxide 30 mmol/L (22-30); Chloride 106 mmol/L (98-107); Glucose 126 mg/dL (74-99); Non-African American GFR(CKD) 52 (>60 ml/min/1.73 sqM); Sodium 140 mmol/L (137-145); Total Bilirubin 0.7 mg/dL (0.2-1.3); Total Protein 6.4 g/dL (6.3-8.2)
[2021-06-26] MEDS ORDERED: ISOSORBIDE MONONITRATE ER 60 MG TAB.ER.24H PO SCH (08:00)
[2021-06-26] MEDS ORDERED: SPIRONOLACTONE-HCTZ 25-25MG 1 EACH TAB PO SCH (08:00)
--- NOTE | 2021-06-26 09:02 | P.CRDCN ---
History of Present Illness Consult date: 06/26/21 History of present illness: This is a 80-year-old gentleman with history of hypertension, COPD, atrial fibrillation that was diagnosed several months ago and also previous TIA was brought in from [facility] home with change in mental status. Apparently patient was confused. He was not able to give any detailed history. It appears patient is feeling much better today. He is not oriented to time or place, but is awake and following commands. He claims he is feeling much better. Doesn't seem to be having any chest pain or shortness of breath or any acute distress. Patient is able to move all the extremities. His a computed tomography scan showed subacute infarct. Carotid duplex study showed bilateral disease more so on the left side. His lungs are clear. Heart is irregular. Patient is in atrial fibrillation which is chronic and the rate is controlled. Patient is on anticoagulation. His echocardiogram previously showing normal LV function. At this point continue current medical therapy. Negative for neurology consult and also vascular consult regarding carotid disease. No further cardiac workup at this time. Review of Systems As per the chart Past Medical History Past Medical History: Atrial Fibrillation, Asthma, Heart Failure, COPD, CVA/TIA, Dementia, Diabetes Mellitus, GERD/Reflux, Hyperlipidemia, Hypertension, Thyroid Disorder Additional Past Medical History / Comment(s): NIDDM no longer on RX, CVA x2 with some L sided weakness/slurred speech/walks independently, mitral/tricuspid regurg, bronchitis, hypothyroid, chronic back pain, DDD, IBS. History of Any Multi-Drug Resistant Organisms: None Reported Past Surgical History: Heart Catheterization, Hernia Repair Additional Past Surgical History / Comment(s): Ventral hernia repair, colonoscopy Past Anesthesia/Blood Transfusion Reactions: No Reported Reaction Additional Past Anesthesia/Blood Transfusion Reaction / Comment(s): no hx at [facility] Smoking Status: Former smoker - Past Family History Mother Family Medical History: Unable to Obtain Medications and Allergies Home Medications Medication Instructions Recorded Confirmed Type Ipratropium-Albuterol Nebulize 3 ml INHALATION RT-Q4H PRN 07/18/16 06/25/21 History [Duoneb 0.5 mg-3 mg/3 ml Soln] Sennosides-Docusate Sodium 2 tab PO HS@199907/18/16 06/25/21 History [Senokot-S] Sertraline [Zoloft] 100 mg PO HS@199907/18/16 06/25/21 History Acetaminophen Tab [Tylenol] 500 mg PO Q6H PRN 03/15/18 06/25/21 History atenoloL [Tenormin] 50 mg PO DAILY@0800 12/24/19 06/25/21 History Apixaban [Eliquis] 5 mg PO BID@08,199910/09/20 06/25/21 History Levothyroxine Sodium [Synthroid] 75 mcg PO DAILY@0610/09/20 06/25/21 History Magnesium Hydroxide [Milk of 2,400 mg PO Q72H PRN 10/09/20 06/25/21 History Magnesia] Menthol [Biofreeze] 1 applic TOPICAL QID PRN 10/09/20 06/25/21 History QUEtiapine [SEROquel] 50 mg PO BID@0800,199910/09/20 06/25/21 History hydrALAZINE HCL [Apresoline] 50 mg PO TID@0800,1399,199910/09/20 06/25/21 History lisinopriL 40 mg PO HS@199910/09/20 06/25/21 History Isosorbide Mononitrate ER [Imdur] 60 mg PO DAILY@0806/25/21 06/25/21 History Spironolactone-Hctz 25-25Mg 2 tab PO DAILY@0806/25/21 06/25/21 History [Aldactazide 25-25Mg] diphenhydrAMINE [Benadryl] 25 mg PO TID PRN 06/25/21 06/25/21 History hydrALAZINE HCL 10 mg PO QID PRN 06/25/21 06/25/21 History Allergies Allergy/AdvReac Type Severity Reaction Status Date / Time No Known Allergies Allergy Verified 06/25/21 10:36 Physical Exam Vitals: Vital Signs Temp Pulse Pulse Resp BP BP Pulse Ox 06/26/21 04:00 98.0 F 75 18 128/74 92 L 06/26/21 01:21 72 18 06/26/21 00:00 72 18 133/70 94 L 06/25/21 20:00 97.7 F 61 18 135/69 92 L 06/25/21 15:37 98.1 F 54 L 16 117/62 98 06/25/21 14:59 97.6 F 58 L 12 97/56 98 06/25/21 13:55 97.4 F L 60 12 124/86 98 06/25/21 12:49 98.1 F 61 14 107/55 97 06/25/21 12:24 97.8 F 60 137 H 137/107 96 06/25/21 12:08 97.6 F 60 14 97/54 99 06/25/21 11:45 97.8 F 54 L 14 110/74 98 06/25/21 11:30 97.7 F 56 L 12 132/64 98 06/25/21 11:15 97.6 F 53 L 14 109/65 97 06/25/21 10:45 97.4 F L 58 L 16 114/58 99 06/25/21 10:30 97.6 F 54 L 14 98/48 99 06/25/21 10:15 97.8 F 56 L 16 110/57 99 06/25/21 10:00 97.6 F 60 16 109/58 99 06/25/21 09:51 98.1 F 48 L 16 93/45 96 Intake and Output 06/25/21 06/26/21 06/26/21 22:59 06:59 14:59 Intake Total 120 Balance 120 Intake: Oral 120 Other: Voiding Method Urinal Urinal # Voids 2 Weight 104.326 kg GENERAL EXAM: Patient is alert and follows commands appropriately , not oriented to time HEENT: Normocephalic. Normal reaction of pupils, equal size, normal range of extraocular motion. No erythema or exudates in the throat. NECK: No masses, no nuchal rigidity. CHEST: No chest wall deformity. LUNGS: Equal air entry with no crackles or wheeze. HEART: S1 and S2 normal with no audible mumurs or gallops. Regular rhythm, femorals equal on both sides.. ABDOMEN: No hepatosplenomegaly, normal bowel sounds, no guarding or rigidity. SKIN: No rashes CENTRAL NERVOUS SYSTEM: No focal deficits. EXTREMITIES: No cyanosis, clubbing or edema. Results 06/26/21 06:25 06/26/21 06:25 Cardiac Enzymes 06/25/21 06/25/21 06/26/21 Range/Units 09:54 09:54 06:25 AST 20 23 (17-59) U/L Troponin I 0.014 (0.000-0.034) ng/mL Coagulation 06/25/21 Range/Units 09:54 PT 11.5 (9.0-12.0) sec APTT 27.1 (22.0-30.0) sec CBC 06/25/21 06/26/21 Range/Units 09:54 06:25 WBC 8.4 8.1 (3.8-10.6) k/uL RBC 4.17 L 4.42 (4.30-5.90) m/uL Hgb 13.4 14.0 (13.0-17.5) gm/dL Hct 42.1 45.5 (39.0-53.0) % Plt Count 256 270 (150-450) k/uL Comprehensive Metabolic Panel 06/25/21 06/26/21 Range/Units 09:54 06:25 Sodium 139 140 (137-145) mmol/L Potassium 4.0 4.0 (3.5-5.1) mmol/L Chloride 106 106 (98-107) mmol/L Carbon Dioxide 28 30 (22-30) mmol/L BUN 34 H 28 H (9-20) mg/dL Creatinine 1.62 H 1.26 H (0.66-1.25) mg/dL Glucose 129 H 126 H (74-99) mg/dL Calcium 8.8 9.1 (8.4-10.2) mg/dL AST 20 23 (17-59) U/L ALT 14 13 (4-49) U/L Alkaline Phosphatase 56 59 (38-126) U/L Total Protein 5.9 L 6.4 (6.3-8.2) g/dL Albumin 3.2 L 3.6 (3.5-5.0) g/dL Current Medications Generic Name Dose Route Start Last Admin Trade Name Freq PRN Reason Stop Dose Admin Albuterol/Ipratropium 3 ml 06/25/21 16:26 Ipratropium-Albuterol 3 Ml Neb INHALATION RT-Q4H PRN Shortness Of Breath Aspirin 325 mg 06/26/21 09:00 06/25/21 14:57 Aspirin 325 Mg Tab PO 325 mg DAILY CHEN Administration Atorvastatin Calcium 40 mg 06/25/21 21:00 06/25/21 21:00 Atorvastatin 40 Mg Tab PO Not Given HS CHEN HCTZ/Spironolactone 2 each 06/26/21 08:00 Spironolactone-Hctz 25-25mg 1 Each Tab PO DAILY@0800 [facility] Heparin Sodium (Porcine) 5,000 unit 06/25/21 21:00 06/25/21 20:47 Heparin Sodium,Porcine/Pf 5,000 Unit/0.5 Ml Syringe SQ 5,000 unit Q12HR [facility] Administration Hydralazine HCl 10 mg 06/25/21 16:26 Hydralazine Hcl 10 Mg Tab PO QID PRN SYSTOLIC BP PVER 160 Isosorbide Mononitrate 60 mg 06/26/21 08:00 Isosorbide Mononitrate Er 60 Mg Tab.Er.24h PO DAILY@0800 [facility] Levothyroxine Sodium 75 mcg 06/26/21 06:00 06/26/21 05:53 Levothyroxine 75 Mcg Tab PO 75 mcg DAILY@0600 [facility] Administration Lisinopril 40 mg 06/25/21 20:00 06/25/21 20:47 Lisinopril 20 Mg Tab PO 40 mg HS@1999 [facility] Administration Magnesium Hydroxide 2,400 mg 06/25/21 16:26 Magnesium Hydroxide 2,400 Mg/10 Ml Cup PO Q72H PRN Constipation Quetiapine Fumarate 50 mg 06/25/21 20:00 06/25/21 20:47 Quetiapine 50 Mg Tab PO 50 mg BID@00,1999 [facility] Administration Senna/Docusate Sodium 2 each 06/25/21 20:00 06/25/21 20:47 Sennosides-Docusate Sodium 1 Each Tab PO 2 each HS@1999 [facility] Administration Sertraline HCl 100 mg 06/25/21 20:00 06/25/21 20:47 Sertraline 100 Mg Tab PO 100 mg HS@1999 [facility] Administration Intake and Output 06/25/21 06/26/21 06/26/21 22:59 06:59 14:59 Intake Total 120 Balance 120 Intake: Oral 120 Other: Voiding Method Urinal Urinal # Voids 2 Weight 104.326 kg 06/26/21 06:25 06/26/21 06:25 EKG Interpretations (text) Atrial fibrillation with controlled ventricular response Assessment and Plan Assessment: Admit mainly with confusional state. He seemed to be alert and following commands this morning. No definite focal deficit. Patient has a chronic atrial fibrillation with preserved LV function. Patient is on anti-cognition therapy. Continue current management. Vascular and neuro consult. We'll follow
--- NOTE | 2021-06-26 09:06 | P.CNNES ---
History of Present Illness Consult date: 06/26/21 Requesting physician: Ramez Joe Reason for Consult: CVA History of Present Illness: This is an 81-year-old gentleman with medical history of diabetes mellitus, hypertension, hyperlipidemia who presented emergency department via EMS on 06/25/2021 for altered mental status. Some of the history is obtained from [facility]. Per the ED note it is mentioned that the staff at his home noticed that the patient was altered and not answering questions appropriately he did not know the month a year or where he was in the last normal state was around 8:30 AM on 06/25/2021. He presented to our facility around 9:39 am that same day. At baseline patient is oriented 4 according to ED note. Per patient he could not give much of history but stated he feels much better today compared to presentation then later said I could see better. Otherwise denies of an complaints. Patient is on home medication of Eliquis 5 mg a tablet twice a day. She is not on any statins. Patient is on lisinopril, Zoloft, hydralazine, in general, spinal lactone, magnesium, Synthroid, Imdur, Some of the workup in the hospital consisted of: Initial vital signs is blood pressure of 93/45, heart rate of 48, respiratory of 16, temperature of 98.1 Fahrenheit oral pulse ox is 96% room air. CBC with differential is MCV is 100.9 otherwise is unremarkable Chemistry panel is creatinine is 1.62 and the BUN is 34, serum glucose is 129 otherwise rest of chemistry panel is unremarkable AST, ALTs within normal limits. Calcium is 8.8. Hemoglobin A1c is 5.8 TSH is 1.83. UDS was positive for tricyclic otherwise rest is nondetected Lynch virus PCR is nondetected. PT, PTT and INR is within normal limits CT of the head is reported as right medial occipital acute to subacute infarct in the right SEWER INSPECTOR territory. Recommend local correlation further workup. Further neurology consultation can be considered. I personally reviewed the CT of the head and I agree with the finding. CT angiography of the head and neck was reported as suboptimal CTA as detailed above. Severe stenosis of the P1 segment of the right SEWER INSPECTOR as well as the P1 and P2 segment of the left SEWER INSPECTOR with at least 60% focal stenosis of the anterior aspect of the basilar artery as detailed above. This could be underlying etiology for the right SEWER INSPECTOR territory acute to subacute infarct. Recommend also correlation with echocardiograph result to rule out embolic etiology. Carotid duplex was reported as 50-69% stenosis in the left carotid bifurcation by peak systolic velocity. Less than 50% stenosis in the right bifurcation. EKG is reported as age are fibrillation with slow ventricular response with aberrant conduction or ventricular premature complexes. Stroke code was activated by the ED team and per the ED note they spoke with the stroke attending and the no TPA since "no observable finding and the fact that the patient was beyond 3 hours [place] in patient that is 81 year-old". I feel possibly the tPA was not given since the risk outweighed the benefit. Review of Systems Review of system: The 12 point system was reviewed and apparent positive and negative per HPI. 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 History of Any Multi-Drug Resistant Organisms: None Reported Past Surgical History: Heart Catheterization, Hernia Repair Additional Past Surgical History / Comment(s): Ventral hernia repair, colonoscopy Past Anesthesia/Blood Transfusion Reactions: No Reported Reaction Additional Past Anesthesia/Blood Transfusion Reaction / Comment(s): no hx at [place] Smoking Status: Former smoker - Past Family History Mother Family Medical History: Unable to Obtain Medications and Allergies Home Medications Medication Instructions Recorded Confirmed Type Ipratropium-Albuterol Nebulize 3 ml INHALATION RT-Q4H PRN 07/18/16 06/25/21 History [Duoneb 0.5 mg-3 mg/3 ml Soln] Sennosides-Docusate Sodium 2 tab PO HS@199907/18/16 06/25/21 History [Senokot-S] Sertraline [Zoloft] 100 mg PO HS@199907/18/16 06/25/21 History Acetaminophen Tab [Tylenol] 500 mg PO Q6H PRN 03/15/18 06/25/21 History atenoloL [Tenormin] 50 mg PO DAILY@0800 12/24/19 06/25/21 History Apixaban [Eliquis] 5 mg PO BID@0800,199910/09/20 06/25/21 History Levothyroxine Sodium [Synthroid] 75 mcg PO DAILY@0610/09/20 06/25/21 History Magnesium Hydroxide [Milk of 2,400 mg PO Q72H PRN 10/09/20 06/25/21 History Magnesia] Menthol [Biofreeze] 1 applic TOPICAL QID PRN 10/09/20 06/25/21 History QUEtiapine [SEROquel] 50 mg PO BID@0800,199910/09/20 06/25/21 History hydrALAZINE HCL [Apresoline] 50 mg PO TID@0800,1399,199910/09/20 06/25/21 History lisinopriL 40 mg PO HS@199910/09/20 06/25/21 History Isosorbide Mononitrate ER [Imdur] 60 mg PO DAILY@0806/25/21 06/25/21 History Spironolactone-Hctz 25-25Mg 2 tab PO DAILY@79906/25/21 06/25/21 History [Aldactazide 25-25Mg] diphenhydrAMINE [Benadryl] 25 mg PO TID PRN 06/25/21 06/25/21 History hydrALAZINE HCL 10 mg PO QID PRN 06/25/21 06/25/21 History Allergies Allergy/AdvReac Type Severity Reaction Status Date / Time No Known Allergies Allergy Verified 06/25/21 10:36 Physical Examination - Vital Signs Vital Signs: Vital Signs Temp Pulse Pulse Resp BP BP Pulse Ox 06/25/21 15:37 98.1 F 54 L 16 117/62 98 06/25/21 14:59 97.6 F 58 L 12 97/56 98 06/25/21 13:55 97.4 F L 60 12 124/86 98 06/25/21 12:49 98.1 F 61 14 107/55 97 06/25/21 12:24 97.8 F 60 137 H 137/107 96 06/25/21 12:08 97.6 F 60 14 97/54 99 06/25/21 11:45 97.8 F 54 L 14 110/74 98 02/17/22 11:30 97.7 F 56 L 12 132/64 98 06/25/21 11:15 97.6 F 53 L 14 109/65 97 06/25/21 10:45 97.4 F L 58 L 16 114/58 99 06/25/21 10:30 97.6 F 54 L 14 98/48 99 06/25/21 10:15 97.8 F 56 L 16 110/57 99 06/25/21 10:00 97.6 F 60 16 109/58 99 06/25/21 09:51 98.1 F 48 L 16 93/45 96 Intake and Output 06/25/21 06/25/21 06/25/21 06:59 14:59 22:59 Other: Voiding Method Urinal Weight 104.326 kg 104.326 kg GENERAL: The patient is lying in bed and is not in acute distress. CHEST: The heart rate is regular rate rhythm. No murmurs to auscultation. LUNG: Clear to auscultation bilaterally no wheezing noted throughout. Not labored breathing. ABDOMEN/GI: Bowel sounds present in all 4 quadrants. No tenderness to palpation throughout. NEUROLOGICAL: Higher mental function: The patient is awake, alert, oriented to self and stated he is in the hospital ([place]). Otherwise he stated he does not know the month or the year. He correctly stated the month he is born. He is able to identify objects shown (pen and glasses). , No aphasia and no neglect. Cranial nerves: The pupils are round, equal and reactive to light. Visual torrez are full to confrontation throughout. Extraocular movement is intact no nystagmus is noted. Facial sensation is normal to touch throughout. The facial strength is normal throughout. Hearing is severely decreased bilaterally to hand rub. Tongue is midline and moved [id number] without any difficulty. No dysarthria is noted. Shoulder shrug is normal bilaterally. Motor: Gait is deferred. The strength is 5 over 5 throughout. Normal tone and bulk. Cerebellum: Normal finger to nose bilaterally. Sensation: Sensation is normal to touch throughout. Reflexes (right/left): 1+ Plantars are mute bilaterally. Results - Laboratory Findings CBC and BMP: 06/26/21 06:25 06/26/21 06:25 Abnormal Lab Findings: Abnormal Labs 06/25/21 06/25/21 06/25/21 09:54 09:54 10:09 RBC 4.17 L MCV 100.9 H BUN 34 H Creatinine 1.62 H Glucose 129 H Total Protein 5.9 L Albumin 3.2 L Urine Blood Trace H Urine RBC 7 H Urine Mucus Rare H U Tricyclic Antidepress Detected H Assessment and Plan Assessment: Acute to subacute ischemic stroke over the right medial occipital region. No IV tpa since outside window and is on eliquis a(risk outweigh benefit). Seems embolic in nature. Left ICA stenosis of 50-69% stenosis per carotid duplex. Atrial fibrillation on Eliquis Diabetes mellitus History of hypertension and on presentation he has hypertension Hyperlipidemia Very hard of hearing bilaterally Plan: In the ED the patient was given aspirin 325mg one statin was started on aspirin 325 daily. We'll hold Eliquis for next 3 days and resume Eliquis to avoid any hemorrhagic conversion (then can restart Eliquis with in addition of low dose ASA 81mg for 21 days). I started the patient on Lipitor 40 mg daily at bedtime for secondary stroke prophylaxis. Ordered 2-D echo. Lipid panels ordered and is pending MRI Brain is not warranted at this point from neurological perspective since stroke is seen on CT brain. Continue neuro checks Placed on cardiac monitoring PT, OT and PROJECT LANDSCAPE ARCHITECT is consulted Cardiology team is consulted by the primary team for A. fib I consulted vascular surgery team for left carotid stenosis. Recommend normotensive and avoid any hypotensive episode and we'll defer the management to primary team We'll defer the rest of medical management to primary team For DVT prophylaxis: I started the patient on subcu heparin 5000 units every 12 hours Upon discharge the patient needs to follow-up with a neurologist within 1-2 weeks as an outpatient. The plan is discussed with the patient's nurse. Thank you for the consultation. Douglas Mayer M.D. Neuro-hospitalist Time with Patient: Greater than 30
[2021-06-26 09:25] VITALS: RESP 16; TEMP 98.9
[2021-06-26] MEDS: ASPIRIN 325 MG TAB PO SCH (09:26)
[2021-06-26] MEDS: HEPARIN SODIUM,PORCINE/PF 5,000 UNIT/0.5 ML SYRINGE SQ SCH (09:26)
[2021-06-26] MEDS: QUEtiapine 50 MG TAB PO SCH (09:26)
[2021-06-26 11:27] VITALS: BP 120/75; PULSE 66
[2021-06-26 11:41] LABS: Glucose,Whole Blood 93 mg/dL (75-99)
[2021-06-26 11:47] LABS: Chol/HDL Ratio 3.93 Ratio; LDL Cholesterol,Calculated 111.5 mg/dL (0.0-131.0); VLDL Calculation 18.98 mg/dL (5.00-40.00)
--- NOTE | 2021-06-26 12:49 | ECHOF ---
Referral Reason:stroke MEASUREMENTS -------- HEIGHT: 177.8 cm WEIGHT: 104.3 kg BP: 128/74 RVIDd: 3.3 cm (< 3.3) IVSd: 1.9 cm (0.6 - 1.1) LVIDd: 4.0 cm (3.9 - 5.3) LVPWd: 1.8 cm (0.6 - 1.1) IVSs: 2.2 cm LVIDs: 2.6 cm LVPWs: 2.4 cm LAESV Index (A-L): 35.34 ml/m Ao Diam: 3.8 cm (2.0 - 3.7) AV Cusp: 2.0 cm (1.5 - 2.6) LA Diam: 4.2 cm (2.7 - 3.8) MV EXCURSION: 22.560 mm (> 18.000) MV EF SLOPE: 401 mm/s (70 - 150) EPSS: 0.5 cm RAP: 5.00 mmHg RVSP: 37.85 mmHg FINDINGS -------- This was a technically difficult study with suboptimal views. The left ventricular size is normal. There is moderate concentric left ventricular hypertrophy. O verall left ventricular systolic function is normal with, an EF between 55 - 60 %. The right ventricle is mildly enlarged. LA is moderately dilated 34-39 ml/m2 The right atrium was not well visualized. Lumason used Interatrial and interventricular septum intact. The aortic valve is trileaflet, and appears structurally normal. No aortic stenosis or regurgitation. The mitral valve leaflets are mildly thickened. Mild mitral regurgitation is present. The tricuspid valve appears structurally normal. Mild tricuspid regurgitation present. There is m ild pulmonary hypertension. The right ventricular systolic pressure, as measured by Doppler, is 37. 85mmHg. Trace/mild (physiologic) pulmonic regurgitation. The aortic root is mildy dilated. IVC Not well visulized. There is no pericardial effusion. CONCLUSIONS -------- 1. This was a technically difficult study with suboptimal views. 2. There is moderate concentric left ventricular hypertrophy. 3. Overall left ventricular systolic function is normal with, an EF between 55 - 60 %. 4. The right ventricle is mildly enlarged. 5. LA is moderately dilated 34-39 ml/m2 6. The aortic valve is trileaflet, and appears structurally normal. No aortic stenosis or regurgitati on. 7. Mild mitral regurgitation is present. 8. Mild tricuspid regurgitation present. 9. There is mild pulmonary hypertension. 10. Trace/mild (physiologic) pulmonic regurgitation. 11. The aortic root is mildy dilated. FRONT OFFICE SUPERVISOR: Toya Corey RDCS
--- NOTE | 2021-06-26 13:34 | CDI ---
Documentation Clarification Form Date: 06/26/2021 01:17:44 PM From: Jackie Decker RN, CCDS Admit Date: 06/25/2021 01:53:00 PM Patient Name: Benigno Sanchez Visit Number: [id number] Discharge Date: ATTENTION: The Clinical Documentation Specialists (CDI) and [facility] Coding Staff appreciate your assistance in clarifying documentation. Please respond to the clarification below the line at the bottom and electronically sign. The CDI & [facility] Coding staff will review the response and follow-up if needed. Please note: Queries are made part of the Legal Health Record. If you have any questions, please contact the author of this message via ITS. Dr. Fuentes Toledo Your patient has the documented diagnosis of unspecified CHF in the past medical history and the H/P. Additional information regarding the [type, acuity] of CHF is requested. History/Risk Factors: Heart failure, Atrial Fibrillation, Asthma, COPD, CVA Clinical Indicators: 81-year-old male present with change in mental status. He was ruled in for acute right occipital lobe infarct. Assessment also indicate history of congestive heart failure. 06/25 VS/Pulse OX: 117/60 54 16 98 % on 2/L NC 06/26 Echocardiogram Results: Overall left ventricular systolic function is normal with, an EF between 55-60 % 06/25 Chest X Ray: Cardiomegaly correlate for mild chronic interstitial lung disease or venous congestion. Treatment: Telemetry monitoring Imdur 60 MG PO Daily Heparin drip per orders 06/25 Hctz/Spironolactone 25-25 2 PO Daily In your professional opinion, can you please clarify the [acuity and type] of CHF if known? [ ] Acute Diastolic Heart Failure (preserved EF) [ ] Chronic Diastolic Heart Failure (preserved EF) [ ] Acute on Chronic Diastolic Heart Failure (preserved EF) [ ] Acute on Chronic Heart Failure Systolic & Diastolic Heart Failure [ ] Other, please specify [ ] Unable to determine (Template Last Revised: June 2020) Chronic Diastolic Heart [facility] (preserved EF) [facility]
--- NOTE | 2021-06-26 14:11 | P.GSCN ---
History of Present Illness Consult date: 06/26/21 History of present illness: Benigno is an 81-year-old male who presented to the ER with altered mental status. He was found to have a right medial occipital acute to subacute infarct in the right COMPONENT TECHNICIAN territory. Upon our seeing him for left carotid stenosis, he does feel better. Imaging was obtained which did show severe stenosis of the P1 segment of the right COMPONENT TECHNICIAN and the P1 into segment of the left COMPONENT TECHNICIAN. The left internal carotid artery at the bifurcation showed 50-69% stenosis in the right showed less than 50% stenosis. 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 History of Any Multi-Drug Resistant Organisms: None Reported Past Surgical History: Heart Catheterization, Hernia Repair Additional Past Surgical History / Comment(s): Ventral hernia repair, col onoscopy Past Anesthesia/Blood Transfusion Reactions: No Reported Reaction Additional Past Anesthesia/Blood Transfusion Reaction / Comm: no hx at [place] Smoking Status: Former smoker - Past Family History Mother Family Medical History: Unable to Obtain Medications and Allergies Home Medications Medication Instructions Recorded Confirmed Type Ipratropium-Albuterol Nebulize 3 ml INHALATION RT-Q4H PRN 07/18/16 06/25/21 History [Duoneb 0.5 mg-3 mg/3 ml Soln] Sennosides-Docusate Sodium 2 tab PO HS@199907/18/16 06/25/21 History [Senokot-S] Sertraline [Zoloft] 100 mg PO HS@199907/18/16 06/25/21 History Acetaminophen Tab [Tylenol] 500 mg PO Q6H PRN 03/15/18 06/25/21 History atenoloL [Tenormin] 50 mg PO DAILY@79912/24/19 06/25/21 History Apixaban [Eliquis] 5 mg PO BID@08,199910/09/20 06/25/21 History Levothyroxine Sodium [Synthroid] 75 mcg PO DAILY@0610/09/20 06/25/21 History Magnesium Hydroxide [Milk of 2,400 mg PO Q72H PRN 10/09/20 06/25/21 History Magnesia] Menthol [Biofreeze] 1 applic TOPICAL QID PRN 10/09/20 06/25/21 History QUEtiapine [SEROquel] 50 mg PO BID@0800,199910/09/20 06/25/21 History hydrALAZINE HCL [Apresoline] 50 mg PO TID@0800,1400,199910/09/20 06/25/21 History lisinopriL 40 mg PO HS@199910/09/20 06/25/21 History Isosorbide Mononitrate ER [Imdur] 60 mg PO DAILY@0800 06/25/21 06/25/21 History Spironolactone-Hctz 25-25Mg 2 tab PO DAILY@0800 06/25/21 06/25/21 History [Aldactazide 25-25Mg] diphenhydrAMINE [Benadryl] 25 mg PO TID PRN 06/25/21 06/25/21 History hydrALAZINE HCL 10 mg PO QID PRN 06/25/21 06/25/21 History Allergies Allergy/AdvReac Type Severity Reaction Status Date / Time No Known Allergies Allergy Verified 06/25/21 10:36 Surgical - Exam Vital Signs Temp Pulse Resp BP Pulse Ox 98.1 F 48 L 16 93/45 96 06/25/21 09:51 06/25/21 09:51 06/25/21 09:51 06/25/21 09:51 06/25/21 09:51 Gen. is a pleasant cooperative male in no acute distress. HEENT is normal cephalic, atraumatic, excellent motion intact. Hard of hearing Slowed speech. Heart appears regular. Lungs are clear. Abdomen is soft obese nontender. Extremity show no clubbing, cyanosis or edema. Cranial nerves II through XII grossly intact at this point. Results CTA of the neck and carotid Dopplers are reviewed - Labs 06/26/21 06:25 06/26/21 06:25 Abnormal Lab Results - Last 24 Hours (Table) 06/26/21 06/26/21 06/26/21 Range/Units 06:12 06:25 06:25 MCV 103.1 H (80.0-100.0) fL MCHC 30.7 L (31.0-37.0) g/dL BUN 28 H (9-20) mg/dL Creatinine 1.26 H (0.66-1.25) mg/dL Glucose 126 H (74-99) mg/dL POC Glucose (mg/dL) 138 H (75-99) mg/dL Diabetes panel 06/25/21 06/26/21 Range/Units 09:54 06:25 Sodium 140 (137-145) mmol/L Potassium 4.0 (3.5-5.1) mmol/L Chloride 106 (98-107) mmol/L Carbon Dioxide 30 (22-30) mmol/L BUN 28 H (9-20) mg/dL Creatinine 1.26 H (0.66-1.25) mg/dL Glucose 126 H (74-99) mg/dL Hemoglobin A1c 5.8 (0.0-6.0) % Calcium 9.1 (8.4-10.2) mg/dL AST 23 (17-59) U/L ALT 13 (4-49) U/L Alkaline Phosphatase 59 (38-126) U/L Total Protein 6.4 (6.3-8.2) g/dL Albumin 3.6 (3.5-5.0) g/dL Triglycerides 94.90 (0.00-149.00) mg/dL HDL Cholesterol 44.50 (40.00-60.00) mg/dL Thyroid panel 06/25/21 Range/Units 09:54 TSH 1.830 (0.465-4.680) mIU/L Calcium panel 06/26/21 Range/Units 06:25 Calcium 9.1 (8.4-10.2) mg/dL Albumin 3.6 (3.5-5.0) g/dL Pituitary panel 06/25/21 06/26/21 Range/Units 09:54 06:25 Sodium 140 (137-145) mmol/L Potassium 4.0 (3.5-5.1) mmol/L Chloride 106 (98-107) mmol/L Carbon Dioxide 30 (22-30) mmol/L BUN 28 H (9-20) mg/dL Creatinine 1.26 H (0.66-1.25) mg/dL Glucose 126 H (74-99) mg/dL Calcium 9.1 (8.4-10.2) mg/dL TSH 1.830 (0.465-4.680) mIU/L Adrenal panel 06/26/21 Range/Units 06:25 Sodium 140 (137-145) mmol/L Potassium 4.0 (3.5-5.1) mmol/L Chloride 106 (98-107) mmol/L Carbon Dioxide 30 (22-30) mmol/L BUN 28 H (9-20) mg/dL Creatinine 1.26 H (0.66-1.25) mg/dL Glucose 126 H (74-99) mg/dL Calcium 9.1 (8.4-10.2) mg/dL Total Bilirubin 0.7 (0.2-1.3) mg/dL AST 23 (17-59) U/L ALT 13 (4-49) U/L Alkaline Phosphatase 59 (38-126) U/L Total Protein 6.4 (6.3-8.2) g/dL Albumin 3.6 (3.5-5.0) g/dL Assessment and Plan Assessment: Left internal carotid artery stenosis, asymptomatic Intracranial arterial stenosis Right CVA Plan: At this point after reviewing imaging, patient is found to have left internal carotid artery stenosis however it is likely closer to 50%. We will follow this as an outpatient with surveillance. He is asymptomatic and less than 50% in his right internal carotid artery at the extracranial system therefore no further vascular surgical workup or intervention for this. Continue medical management. Continue medications as per neurology
--- NOTE | 2021-06-29 08:55 | P.DS ---
Providers Date of admission: 06/25/21 13:53 Expected date of discharge: 06/26/21 Attending physician: Fuentes Toledo Consults: 06/25/21 13:53 Consult Physician Routine Consulting Provider: Douglas Mayer Consult Reason/Comments: CVA Do you want consulting provider notified?: Yes 06/25/21 16:34 Consult Physician Routine Consulting Provider: Devon Calle Consult Reason/Comments: afib Do you want consulting provider notified?: Yes Primary care physician: Physician Nonstaff Hospital Course: Final diagnosis Acute right occipital lobe infarct Atrial fibrillation Chronic obstructive pulmonary disease dementia Diabetes mellitus type 2 history of Chronic diastolic heart failure with preserved EF Discharge disposition Patient is being discharged in a stable condition with guarded prognosis to [place] where he is a resident. Patient will follow-up with visiting physician in the outpatient setting upon discharge. Patient is to also follow up with neurology as scheduled. Total time taken is greater than 35 minutes. Hospital Course This is a 81-year-old male who was recently admitted with change in mental status and confusion and was being closely monitored. Patient was a code stroke evaluation in the ER showed a right medial occipital subacute infarct in the right posterior cerebral artery territory. Patient continued on aspirin and also Eliquis and per neurology patient is to hold anticoagulant for 3 days and then may resume and strongly encouraging outpatient follow-up with neurology this week. Patient also started on statin. Patient was admitted and followed closely by neurology and recommending neurological follow-up in the outpatient setting in 1 week. Patient underwent 2-D echo showing LV systolic function is normal with an EF of 55-60% with some mild mitral and tricuspid regurgitation present along with some mild pulmonary hypertension noted. Patient was also evaluated by vascular surgery for carotid stenosis and would like to continue with conservative management and follow-up with them in the outpatient setting as needed. Currently no reports of chest pain, shortness of breath, or palpitations. Patient is afebrile. No reports of nausea or vomiting and patient is tolerating diet. Patient will be discharged to [place] today. On exam vital signs are stable. Cardio S1, S2 are muffled. Respiratory system shows diminished breath sounds at the bases with no wheezing or rhonchi noted. Abdomen is soft and obese, and nontender. Nervous system shows no focal deficits. Please refer to medication reconciliation sheet for a list of medications. The impression and plan of care has been dictated by Kamryn Mcdermott, nurse practitioner as directed. MD [place] I have performed a history and examination and MDM of this patient, discussed the same with the dictator, and agree with the dictator's assessment and plan as written ,documented as a scribe. Based on total visit time, I have performed more than 50% of the visit. Any additional findings or plans will be noted. Patient Condition at Discharge: Stable Plan - Discharge Summary Discharge Rx Participant: No New Discharge Prescriptions: New Atorvastatin [Lipitor] 40 mg PO HS 30 Days #30 tab Aspirin 325 mg PO DAILY 30 Days #30 tab Continue Sertraline [Zoloft] 100 mg PO HS@1999 Sennosides-Docusate Sodium [Senokot-S] 2 tab PO HS@1999 Ipratropium-Albuterol Nebulize [Duoneb 0.5 mg-3 mg/3 ml Soln] 3 ml INHALATION RT-Q4H PRN PRN Reason: Shortness Of Breath Acetaminophen Tab [Tylenol] 500 mg PO Q6H PRN PRN Reason: Pain atenoloL [Tenormin] 50 mg PO DAILY@0800 hydrALAZINE HCL 10 mg PO QID PRN PRN Reason: SYSTOLIC BP PVER 160 Spironolactone-Hctz 25-25Mg [Aldactazide 25-25 MG] 2 tab PO DAILY@0800 Apixaban [Eliquis] 5 mg PO BID@08,1999 #0 Magnesium Hydroxide [Milk of Magnesia] 2,400 mg PO Q72H PRN PRN Reason: Constipation QUEtiapine [SEROquel] 50 mg PO BID@08,1999 lisinopriL 40 mg PO HS@1999 Levothyroxine Sodium [Synthroid] 75 mcg PO DAILY@0600 Menthol [Biofreeze] 1 applic TOPICAL QID PRN PRN Reason: right shoulder/arm pain diphenhydrAMINE [Benadryl] 25 mg PO TID PRN PRN Reason: Itching Isosorbide Mononitrate ER [Imdur] 60 mg PO DAILY@0800 Discontinued hydrALAZINE HCL [Apresoline] 50 mg PO TID@0800,1400,1999 Discharge Medication List Ipratropium-Albuterol Nebulize [Duoneb 0.5 mg-3 mg/3 ml Soln] 3 ml INHALATION RT-Q4H PRN 07/18/16 [History] Sennosides-Docusate Sodium [Senokot-S] 2 tab PO HS@199907/18/16 [History] Sertraline [Zoloft] 100 mg PO HS@199907/18/16 [History] Acetaminophen Tab [Tylenol] 500 mg PO Q6H PRN 03/15/18 [History] atenoloL [Tenormin] 50 mg PO DAILY@79912/24/19 [History] Levothyroxine Sodium [Synthroid] 75 mcg PO DAILY@59910/09/20 [History] Magnesium Hydroxide [Milk of Magnesia] 2,400 mg PO Q72H PRN 10/09/20 [History] Menthol [Biofreeze] 1 applic TOPICAL QID PRN 10/09/20 [History] QUEtiapine [SEROquel] 50 mg PO BID@799,199910/09/20 [History] lisinopriL 40 mg PO HS@199910/09/20 [History] Isosorbide Mononitrate ER [Imdur] 60 mg PO DAILY@79906/25/21 [History] Spironolactone-Hctz 25-25Mg [Aldactazide 25-25 MG] 2 tab PO DAILY@79906/25/21 [History] diphenhydrAMINE [Benadryl] 25 mg PO TID PRN 06/25/21 [History] hydrALAZINE HCL 10 mg PO QID PRN 06/25/21 [History] Apixaban [Eliquis] 5 mg PO BID@799,1999 #0 06/26/21 [Rx] Aspirin 325 mg PO DAILY 30 Days #30 tab 06/26/21 [Rx] Atorvastatin [Lipitor] 40 mg PO HS 30 Days #30 tab 06/26/21 [Rx] Follow up Appointment(s)/Referral(s): [facility], [NON-STAFF] - 1 Week Julieta Pandya DO [STAFF PHYSICIAN] - 1 Week (office is closed on Fridays; please call Tuesday to schedule a followup appointment with Dr. Pandya) Nonstaff,Physician [Primary Care Provider] - 1-2 days (They will schedule an appointment with primary next week. Thanks. ) Ambulatory/Diagnostic Orders: Complete Blood Count w/diff [LAB.AMB] Time Frame: 3 Days, Location: None Selected Patient Instructions/Handouts: A-fib (Atrial Fibrillation) (DC), Carotid Artery Disease (DC), Ischemic Stroke (DC) Activity/Diet/Wound Care/Special Instructions: Call [facility] when patient is discharge - [phone] - send a copy of discharge instructions and med list Call Legal guardian to notify upon discharge as well Meds will be filled at [facility], please have delivered to room and send home with patient Patient needs wheelchair van transport - [phone] (does not run on Tuesday, call legal guardian if d/c on Tuesday to see how they want to handle) Activity as tolerated Follow-up with primary care provider on discharge Continue with home care Patient will need neurology follow-up in one week Continue with aspirin daily Continue to hold Eliquis for the next 3 days and resume after Recommend repeat labs in the outpatient setting Patient will also need to follow-up with vascular surgery in the outpatient setting in 1-2 weeks Discharge Disposition: HOME WITH HOME HEALTH SERVICES
== END 2021-06-26 16:18 | disposition home health service (06) | DRG 65 ==
LOC: EC 09:39 → 3SCARD 13:53
PROVIDERS: ADMIT Hospitalist; ATTEND Hospitalist
DX: I63.531 Cerebral infarction due to unspecified occlusion or stenosis of right posterior cerebral artery (principal); I50.32 Chronic diastolic (congestive) heart failure; I48.20 Chronic atrial fibrillation, unspecified; I69.354 Hemiplegia and hemiparesis following cerebral infarction affecting left non-dominant side; I69.328 Other speech and language deficits following cerebral infarction; I27.20 Pulmonary hypertension, unspecified; F03.90 Unspecified dementia, unspecified severity, without behavioral disturbance, psychotic disturbance, mood disturbance, and anxiety; I11.0 Hypertensive heart disease with heart failure; E11.9 Type 2 diabetes mellitus without complications; J44.9 Chronic obstructive pulmonary disease, unspecified; I77.1 Stricture of artery; Z20.822 Contact with and (suspected) exposure to COVID-19; R29.702 NIHSS score 2; I49.3 Ventricular premature depolarization; E78.5 Hyperlipidemia, unspecified; E03.9 Hypothyroidism, unspecified; I65.22 Occlusion and stenosis of left carotid artery; I08.1 Rheumatic disorders of both mitral and tricuspid valves; F32.A Depression, unspecified; F41.9 Anxiety disorder, unspecified; K21.9 Gastro-esophageal reflux disease without esophagitis; K58.9 Irritable bowel syndrome, unspecified; H91.93 Unspecified hearing loss, bilateral; E66.9 Obesity, unspecified; Z68.33 Body mass index [BMI] 33.0-33.9, adult; Z79.01 Long term (current) use of anticoagulants; Z79.890 Hormone replacement therapy; Z79.899 Other long term (current) drug therapy; Z87.891 Personal history of nicotine dependence; Z87.19 Personal history of other diseases of the digestive system; Z95.5 Presence of coronary angioplasty implant and graft; Z98.890 Other specified postprocedural states
CPT/HCPCS: 36415; 70450; 70496; 70498; 71046; 80053; 80061; 80306; 81001; 82607; 82747; 83036; 84443; 84484; 85025; 85610; 85730; 87635; 93005; 93306; 93880; 96360; 96361; 99291

== ENCOUNTER 2021-11-15 14:12 | Emergency (ER) | payer MEDICARE, OTHER ==
[2021-11-15 14:20] VITALS: RESP 18; TEMP 98.6
[2021-11-15] MEDS ORDERED: DIPH,PERTUS(ACELL)TETVAC-LF 0.5 ML VIAL IM ONE (14:26)
--- NOTE | 2021-11-15 14:34 | ED ---
General Adult HPI - General Chief complaint: Fall Stated complaint: Fall Time Seen by Provider: 11/15/21 14:13 Source: patient, EMS, RN notes reviewed Mode of arrival: EMS Limitations: no limitations - History of Present Illness Initial comments: Patient is a pleasant 81-year-old male presenting to emergency Department following a fall. Patient was outside and tripped. Patient did strike his head on a car. Patient reportedly is an eloquent requests and patient denies loss of consciousness. No headache. No neck or back pain. No chest pain or dyspnea. No abdominal pain. Patient did also strike his left leg and does complain of some left anterior tibial region pain. Patient is ambulatory. - Related Data Home Medications Medication Instructions Recorded Confirmed Ipratropium-Albuterol Nebulize 3 ml INHALATION RT-Q4H PRN 07/18/16 11/15/21 [Duoneb 0.5 mg-3 mg/3 ml Soln] Sennosides-Docusate Sodium 2 tab PO HS@199907/18/16 11/15/21 [Senokot-S] Sertraline [Zoloft] 100 mg PO HS@199907/18/16 11/15/21 Acetaminophen Tab [Tylenol] 500 mg PO Q6H PRN 03/15/18 11/15/21 atenoloL [Tenormin] 50 mg PO DAILY@79912/24/19 11/15/21 Levothyroxine Sodium [Synthroid] 75 mcg PO DAILY@00 10/09/20 11/15/21 Magnesium Hydroxide [Milk of 2,400 mg PO Q72H PRN 10/09/20 11/15/21 Magnesia] Menthol [Biofreeze] 1 applic TOPICAL QID PRN 10/09/20 11/15/21 QUEtiapine [SEROquel] 50 mg PO BID@799,199910/09/20 11/15/21 lisinopriL 40 mg PO HS@199910/09/20 11/15/21 Isosorbide Mononitrate ER [Imdur] 60 mg PO DAILY@79906/25/21 11/15/21 Spironolactone-Hctz 25-25Mg 2 tab PO DAILY@79906/25/21 11/15/21 [Aldactazide 25-25 MG] diphenhydrAMINE [Benadryl] 25 mg PO TID PRN 06/25/21 11/15/21 hydrALAZINE HCL 10 mg PO QID PRN 06/25/21 11/15/21 Aquanil Hc 1% Lotion 1 applic TOPICAL BID PRN 11/15/21 11/15/21 Aspirin 325 mg PO DAILY@0800 11/15/21 11/15/21 Atorvastatin [Lipitor] 40 mg PO HS@199911/15/21 11/15/21 Previous Rx's Medication Instructions Recorded Apixaban [Eliquis] 5 mg PO BID@799,1999 #0 06/26/21 Allergies Allergy/AdvReac Type Severity Reaction Status Date / Time No Known Allergies Allergy Verified 11/15/21 15:09 Review of Systems ROS Statement: Those systems with pertinent positive or pertinent negative responses have been documented in the HPI. ROS Other: All systems not noted in ROS Statement are negative. 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 History of Any Multi-Drug Resistant Organisms: None Reported Past Surgical History: Heart Catheterization, Hernia Repair Additional Past Surgical History / Comment(s): Ventral hernia repair, colonoscopy Past Anesthesia/Blood Transfusion Reactions: No Reported Reaction Additional Past Anesthesia/Blood Transfusion Reaction / Comment(s): no hx at [place] Past Psychological History: Anxiety, Depression Smoking Status: Former smoker Past Alcohol Use History: Occasional Past Drug Use History: None Reported - Past Family History Mother Family Medical History: Unable to Obtain General Exam Limitations: no limitations General appearance: alert, in no apparent distress Head exam: Present: other (Right forehead abrasion) Eye exam: Present: normal appearance, PERRL, EOMI ENT exam: Present: normal oropharynx Neck exam: Present: normal inspection. Absent: tenderness Respiratory exam: Present: normal lung sounds bilaterally Cardiovascular Exam: Present: regular rate, normal rhythm GI/Abdominal exam: Present: soft. Absent: tenderness Extremities exam: Present: other (Left anterior licona with abrasions and tenderness) Neurological exam: Present: alert, CN II-XII intact. Absent: motor sensory deficit Expanded Neurological exam: Present: protecting the airway Speech: Present: fluid speech Cranial nerves: EOM's Intact: Normal Motor strength exam: RUE: 5, LUE: 5, RLE: 5, LLE: 5 Eye Response: (4) open spontaneously Motor Response: (6) obeys commands Verbal Response: (4) confused conversation (Reported as normal.) Psychiatric exam: Present: normal affect, normal mood Skin exam: Present: abrasion (Left anterior licona, right forehead) Course Vital Signs 11/15/21 14:15 Temperature 98.6 F Pulse Rate 63 Respiratory 18 Rate Blood Pressure 115/59 O2 Sat by Pulse 93 L Oximetry Medical Decision Making - Medical Decision Making Patient reevaluated and updated. Disposition Clinical Impression: Fall, Head contusion Disposition: HOME SELF-CARE Condition: Stable Instructions (If sedation given, give patient instructions): Fall Prevention for Older Adults (ED), Head Injury (ED) Additional Instructions: Please follow-up with primary care physician in the next day or 2 for recheck. Hold anticoagulants for 24 hours. Return for change in mental status, weakness or confusion, persistent vomiting, worsening symptoms or other concerns. Is patient prescribed a controlled substance at d/c from ED?: No Referrals: Nonstaff,Physician [Primary Care Provider] - 1-2 days Time of Disposition: 15:43
--- NOTE | 2021-11-15 15:34 | CT ---
EXAMINATION TYPE: CT brain shiva saenz DATE OF EXAM: 11/15/2021 COMPARISON: 07/05/2021 HISTORY: Fall. CT DLP: 1468.3 mGycm Automated exposure control for dose reduction was used. There is diffuse cerebral cortical atrophy. There is no mass effect or midline shift. No sign of intr acranial hemorrhage. There is hypodensity in the medial right occipital lobe consistent with old andrea ical infarct. The calvarium is intact. There is a fluid level left maxillary sinus. Cervical vertebra show fairly normal alignment. There is mild disc space narrowing at C5-6 and C6-7 w ith spurring. There are C7-T1 narrowing and spurring. Posterior elements are intact. Facet joints are intact. There is mild hypertrophic facet arthropathy. Prevertebral soft tissues appear intact. Skull base is intact. IMPRESSION: Cerebral atrophy. Old right occipital lobe cortical infarct. No acute intracranial abnormality. No ch corinne. Mild left maxillary sinusitis. Cervical spondylotic changes. No fracture. No change.
--- NOTE | 2021-11-15 15:37 | XR ---
EXAMINATION TYPE: XR tibia fibula LT DATE OF EXAM: 11/15/2021 COMPARISON: NONE HISTORY: Leg pain TECHNIQUE: 2 views FINDINGS: There is mild subcutaneous edema around the lower leg. Tibia and fibula appear intact. IMPRESSION: Mild subcutaneous edema. No fracture seen.
[2021-11-15 16:01] VITALS: BP 96/64; PULSE 84
== END 2021-11-15 16:01 | disposition home or self-care (01) ==
LOC: EC 14:12
DX: S00.93XA Contusion of unspecified part of head, initial encounter (principal); E11.9 Type 2 diabetes mellitus without complications; J44.9 Chronic obstructive pulmonary disease, unspecified; I11.0 Hypertensive heart disease with heart failure; I50.9 Heart failure, unspecified; K21.9 Gastro-esophageal reflux disease without esophagitis; E78.5 Hyperlipidemia, unspecified; E03.9 Hypothyroidism, unspecified; I48.91 Unspecified atrial fibrillation; Z86.73 Personal history of transient ischemic attack (TIA), and cerebral infarction without residual deficits; Z87.891 Personal history of nicotine dependence; Z79.899 Other long term (current) drug therapy; Z79.890 Hormone replacement therapy; Z79.82 Long term (current) use of aspirin; W01.0XXA Fall on same level from slipping, tripping and stumbling without subsequent striking against object, initial encounter
CPT/HCPCS: 70450; 72125; 90471; 90715; 99284